=== PATIENT | female | born 1975 | race Caucasian/White ===

== ENCOUNTER 2021-06-12 15:22 | Emergency (ER) | payer SELFPAY ==
[2021-06-12] MEDS ORDERED: NS IV 1000 ML 1,000 ML IV SCH (15:30)
[2021-06-12 15:39] LABS: HEMATOCRIT 33 % (35-52); HEMOGLOBIN 11.2 g/dL (11.5-16.0); MEAN CORPUSCULAR HEMOGLOBIN 32 pg (25-34); MEAN CORPUSCULAR HGB CONC 34 g/dL (32-36); MEAN CORPUSCULAR VOLUME 95 fL (80-99); MEAN PLATELET VOLUME 10.3 fL (9.0-12.2); PLATELET COUNT 207 10^3/uL (130-400); WHITE BLOOD COUNT 7.3 10^3/uL (4.3-11.0)
[2021-06-12 15:40] LABS: BASOPHILS % (AUTO) 0 % (0-10); EOSINOPHILS # (AUTO) 0.2 10^3/uL (0.0-0.3); EOSINOPHILS % (AUTO) 2 % (0-10); LYMPHOCYTES # (AUTO) 1.8 X 10^3 (1.0-4.0); LYMPHOCYTES % (AUTO) 25 % (12-44); MONOCYTES # (AUTO) 0.6 X 10^3 (0.0-1.0); MONOCYTES % (AUTO) 8 % (0-12); NEUTROPHILS # (AUTO) 4.8 X 10^3 (1.8-7.8); NEUTROPHILS % (AUTO) 65 % (42-75)
[2021-06-12] MEDS ORDERED: MIDAZOLAM 5 MG/5 ML (VERSED) VIAL IVP STA (15:41)
[2021-06-12] MEDS ORDERED: PROPOFOL DRIP (ICU) 100 ML IV STA (15:41)
[2021-06-12] MEDS ORDERED: ROCURONIUM 10 MG/ML 5 ML SYRINGE IV STA (15:41)
[2021-06-12 15:44] LABS: PROTHROMBIN TIME PATIENT 13.9 SEC (12.2-14.7)
--- NOTE | 2021-06-12 15:46 | Diagnostic Imaging Report ---
INDICATION: Unresponsive. TIME OF EXAM: 03:33 p.m. COMPARISON: No prior studies are available for comparison. FINDINGS: Heart size is normal. ET tube has tip in good position above the ministerio. Lungs are clear. No infiltrates are seen. The pulmonary vascularity is normal. No effusion or pneumothorax is detected. IMPRESSION: Satisfactory endotracheal tube location. Dictated by: Dictated on workstation # [id number]
[2021-06-12 15:52] LABS: BILIRUBIN,URINE NEGATIVE (NEGATIVE); CLARITY,URINE CLEAR; COLOR,URINE YELLOW; GLUCOSE, URINE (UA) NEGATIVE (NEGATIVE); KETONES,URINE TRACE (NEGATIVE); LEUKOCYTE ESTERASE ,URINE NEGATIVE (NEGATIVE); NITRITE,URINE NEGATIVE (NEGATIVE); PH,URINE 6.5 (5-9); PROTEIN,URINE NEGATIVE (NEGATIVE)
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
[2021-06-12 16:04] LABS: BACTERIA,URINE NEGATIVE /HPF; RBC,URINE RARE /HPF; SQUAMOUS EPITHELIAL CELL,UR RARE /HPF; WBC,URINE RARE /HPF
[2021-06-12 16:09] LABS: ALANINE AMINOTRANSFERASE 34 U/L (0-55); ALKALINE PHOSPHATASE 71 U/L (40-136); BILIRUBIN,TOTAL 0.3 MG/DL (0.1-1.0); BUN/CREATININE RATIO 17; CALCIUM 8.1 MG/DL (8.5-10.1); CARBON DIOXIDE 22 MMOL/L (21-32); CHLORIDE 109 MMOL/L (98-107); CREATININE SERUM 0.66 MG/DL (0.60-1.30); GFR ESTIMATED 109; GLUCOSE 105 MG/DL (70-105); POTASSIUM 3.4 MMOL/L (3.6-5.0); SODIUM 143 MMOL/L (135-145)
[2021-06-12 16:11] LABS: ACETAMINOPHEN < 10 UG/ML (10-30); ALBUMIN 3.7 GM/DL (3.2-4.5); SALICYLATE < 0.3 MG/DL (5.0-20.0)
--- NOTE | 2021-06-12 16:17 | Diagnostic Imaging Report ---
CLINICAL INDICATION: Patient vomited, then went unresponsive. Patient has unequal pupils. EXAM: Axial CT scan of the brain performed without IV contrast with sagittal and coronal reformatted images. COMPARISON: None. FINDINGS: There is a moderate-sized area of hyperdense intraparenchymal hemorrhage which appears centered in the central portion of the mid brain, which slightly extends or encroaches upon the medial aspects of the thalami bilaterally. This area of intraparenchymal blood within the mid brain measures 3.9 cm x 2.8 cm x 2.6 cm (AP x Trans x CC). There is a moderate amount of intraventricular blood seen within the lateral ventricles, third ventricle, fourth ventricle, and trigone portions of the lateral ventricles. There is mild prominence of the lateral ventricles concerning for early minimal hydrocephaly. The remainder of the brain parenchyma is unremarkable. There is no brain herniation or midline shift. Basal cisterns are unremarkable. The extracranial soft tissue, skull, and orbits are unremarkable. There is mild mucosal thickening involving the ethmoid sinus. There is a moderate amount of mucosal thickening posteriorly involving the nasal cavity. Mastoid air cells are clear. IMPRESSION: 1: There is a moderate-sized area of acute intraparenchymal hemorrhage which appears centered in the mid brain, which abuts the medial aspect of the thalami bilaterally. Intraparenchymal blood is seen extending into the ventricles. There is no significant brain herniation or midline shift. Etiology of the bleed is unknown. 2: There is a moderate amount of intraventricular blood with early minimal hydrocephaly noted. Results of this report were discussed with Dr. You Naidu via telephone on 06/12/2021 at 1605 hours. Dictated by: Dictated on workstation # [id number]
[2021-06-12 16:55] VITALS: BP 137/67
[2021-06-12 17:02] LABS: AMPHETAMINE SCREEN, URINE NEGATIVE (NEGATIVE); BARBITURATE SCREEN URINE NEGATIVE (NEGATIVE); BENZODIAZEPINES SCREEN URINE NEGATIVE (NEGATIVE); CANNABINOID SCREEN, URINE POSITIVE (NEGATIVE); COCAINE SCREEN URINE NEGATIVE (NEGATIVE); METHADONE STAT NEGATIVE (NEGATIVE); METHAMPHETAMINE SCREEN URINE S NEGATIVE (NEGATIVE); OPIATE SCREEN URINE NEGATIVE (NEGATIVE); OXYCODONE STAT NEGATIVE (NEGATIVE); PROPOXYPHENE STAT NEGATIVE (NEGATIVE); TRICYCLIC ANTIDEPRESSANTS SCRE NEGATIVE (NEGATIVE)
== END 2021-06-12 16:55 | disposition short-term general hospital (02) ==
LOC: ER FS 15:23
DX: I61.5 Nontraumatic intracerebral hemorrhage, intraventricular (principal)
CPT/HCPCS: 36415; 51702; 70450; 71045; 80053; 80306; 81000; 83880; 84484; 84703; 85025; 85610; 85730; 93041; G0480 ×3; 80320; 80329; 93005; 99291

== ENCOUNTER 2022-05-19 01:37 | Inpatient (IN) | payer MEDICAID ==
[~2022-05-19] VITALS: Ht 175.3 cm; Wt 74.5 kg
[2022-05-19] VITALS (16 sets, daily range): BP systolic 107–144; BP diastolic 68–82
[2022-05-19 01:54] LABS: BILIRUBIN,URINE NEGATIVE (NEGATIVE); COLOR,URINE YELLOW; GLUCOSE, URINE (UA) NEGATIVE (NEGATIVE); KETONES,URINE NEGATIVE (NEGATIVE); LEUKOCYTE ESTERASE ,URINE 3+ (NEGATIVE); NITRITE,URINE POSITIVE (NEGATIVE); PH,URINE 8.5 (5-9); PROTEIN,URINE 1+ (NEGATIVE)
[2022-05-19 01:54] LABS: BASOPHILS # (AUTO) 0.1 10^3/uL (0.0-0.1); BASOPHILS % (AUTO) 0 % (0-10); EOSINOPHILS # (AUTO) 0.2 10^3/uL (0.0-0.3); EOSINOPHILS % (AUTO) 2 % (0-10); HEMATOCRIT 37 % (35-52); HEMOGLOBIN 12.9 g/dL (11.5-16.0); LYMPHOCYTES # (AUTO) 2.3 10^3/uL (1.0-4.0); LYMPHOCYTES % (AUTO) 19 % (12-44); MEAN CORPUSCULAR HEMOGLOBIN 32 pg (25-34); MEAN CORPUSCULAR HGB CONC 35 g/dL (32-36); MEAN CORPUSCULAR VOLUME 94 fL (80-99); MEAN PLATELET VOLUME 10.7 fL (9.0-12.2); MONOCYTES # (AUTO) 0.8 10^3/uL (0.0-1.0); MONOCYTES % (AUTO) 6 % (0-12); NEUTROPHILS # (AUTO) 8.5 10^3/uL (1.8-7.8); NEUTROPHILS % (AUTO) 72 % (42-75); PLATELET COUNT 296 10^3/uL (130-400); WHITE BLOOD COUNT 11.8 10^3/uL (4.3-11.0)
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
[2022-05-19 01:57] LABS: BACTERIA,URINE LARGE /HPF; CLARITY,URINE CLOUDY; TRIPLE PHOSPHATE CRYSTAL,UR MODERATE /LPF
[2022-05-19 02:12] LABS: POTASSIUM 3.9 MMOL/L (3.6-5.0)
[2022-05-19 02:13] LABS: ALBUMIN 3.6 GM/DL (3.2-4.5); BILIRUBIN,TOTAL 0.3 MG/DL (0.1-1.0); CALCIUM 8.8 MG/DL (8.5-10.1); CREATININE SERUM 0.4 MG/DL (0.60-1.30); TOTAL PROTEIN 7.1 GM/DL (6.4-8.2)
[2022-05-19] MEDS ORDERED: NS IV 1000 ML 1,000 ML IV STA (02:15)
[2022-05-19] MEDS ORDERED: ONDANSETRON 4 MG/2 ML (SDV) Z0FRAN IV PRN ×2 (04:00→14:00)
[2022-05-19] MEDS: NS IV 1000 ML 1,000 ML IV SCH ×2 (04:07→19:27)
[2022-05-19] MEDS ORDERED: RT-ALBUTEROL SULF 2.5 MG/3 ML PRE-MIX VIAL INH PRN (04:30)
--- NOTE | 2022-05-19 06:55 | Diagnostic Imaging Report ---
EXAMINATION: Chest, 1 view. HISTORY: NG tube placement. COMPARISON: 06/12/2021. FINDINGS: Heart size and pulmonary vasculature are normal. The lungs are clear without consolidation, pleural effusion, or pneumothorax. The osseous structures are intact. A tracheostomy is present within the trachea. An enteric catheter is present coursing below the diaphragm. The tip is nonvisualized inferior to the image, likely within the mid stomach in the mid abdomen. There appears to be a mild amount of free air under the diaphragm bilaterally. IMPRESSION: 1. Enteric catheter placement projecting over the stomach below the diaphragm. 2. Findings suggestive of free air under the diaphragm bilaterally. This finding was seen on the subsequent CT chest, abdomen, and pelvis performed on 05/19/2022. Dictated by: Dictated on workstation # [id number]
--- NOTE | 2022-05-19 07:11 | History & Physical-Hospitalist ---
History of Present Illness HPI/Chief Complaint CC: SBO with evidence of free air HPI: This is a 46yoWF NHP due to catastrophic disability following a hemorrhagic CVA in the past. She has contractures of all extremities. Apparently she was brought to [facility] ER with evidence of acute illness and found to have SBO but on repeat imaging she has free air so perforated viscus suspected so Dr Viera will perform exp lap. is at bedside. Updated him on all of the details. Source: family Exam Limitations: clinical condition Date Seen 05/19/22 Time Seen by a Provider: 11:00 Attending Physician Bentley Khan MD PCP Admitting Physician: More Harris DO Attending Physician: More Harris DO Referring Physician Date of Admission May 19, 2022 at 03:25 Home Medications & Allergies Home Medications Reviewed patient Home Medication Reconciliation performed by pharmacy medication reconciliations hvac technician residential and/or nursing. Patients Allergies have been reviewed. Allergies Allergies Coded Allergies No Known Drug Allergies (Unverified06/12/21) Past Vqympjx-Wmcelk-Kehyny Hx Patient Social History Marrital Status: Employed/Student: unemployed Tobacco Use?: No Smoking Status: Never a Smoker Smokeless Tobacco Frequency: Never a User Use of E-Cig and/or Vaping dev: No Substance use?: No Alcohol Use?: No Pt feels they are or have been: No Immunizations Up To Date First/Initial COVID19 Vaccinat: 2020 Second COVID19 Vaccination Paul: 2020 Current Status Advance Directives: No Communicates: Unable To Communicate Primary Language: Estonian Preferred Spoken Language: Estonian Is interpretation needed?: No Past Medical History Surgeries: Abdominal (PEG tube feeding) Stroke Review of Systems ROS-Unable to Obtain: non-verbal Constitutional: see HPI Physical Exam Physical Exam Vital Signs Vital Signs - First Documented 05/19/22 05/19/22 01:37 04:26 Temp 36.9 Pulse 113 Resp 22 B/P (MAP) 113/68 (83) Pulse Ox 95 O2 Delivery Room Air FiO2 21 Capillary Refill : Less Than 3 Seconds Height, Weight, BMI Height: '" Weight: lbs. oz. kg; 24.24 BMI Method: General Appearance: No Apparent Distress, Chronically ill Respiratory: Lungs Clear, Normal Breath Sounds Cardiovascular: Regular Rate, Rhythm Gastrointestinal: Abnormal Bowel Sounds Results Results/Procedures Labs Laboratory Tests 05/19/22 01:48 Patient resulted labs reviewed. Assessment/Plan Admission Diagnosis Assessment: SBO with free air Hemorrhagic CVA in past with catastrophic disability Extremity contractures Plan: Appreciate Dr Viera Pain control IV abx Admission Status: Inpatient Order (span 2 midnights) Reason for Inpatient Admission: sbo with free air MORE HARRIS DO May 19, 2022 07:11
--- NOTE | 2022-05-19 08:32 | Consultation - Surgery ---
AMY ST 05/19/22 0832: History of Present Illness History of Present Illness Patient Consulted On(sai/time) 05/19/22 08:24 Date Seen by Provider: May 19, 2022 Time Seen by Provider: 08:24 History of Present Illness Helga Reddy is a 46F who presented to the ED in [place] from [facility] where she was found to have a distended abdomen and signs of a SBO on xray. reports she had an ileus in [facility] [place] [facility]. reports the distention has never really resolved from her ileus a month ago but distention began worsening earlier this week around the time of moving to [facility] in [place]. 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 She requires tube feedings through PEG tube and has tracheostomy tube in place. NG tube in place drained 1L before leaving the ER. Imaging was concerning for perforation. We were consulted for evaluation and treatment of SBO w/ potential viscous perforation. Allergies and Home Medications Allergies Coded Allergies: No Known Drug Allergies (Unverified , 06/12/21) Patient Home Medication List Home Medication List Reviewed: Yes Past Ziqjeda-Ljkdpr-Sinvwl Hx Patient Social History Smoking Status: Never a Smoker Alcohol Use?: No Have you traveled recently?: No Surgeries History of Surgeries: Yes Surgeries: Abdominal (PEG tube feeding), Section, Tracheostomy Respiratory History of Respiratory Disorde: No Cardiovascular History of Cardiac Disorders: No Neurological History of Neurological Disord: Yes Neurological Disorders: Stroke Genitourinary History of Genitourinary Disor: Yes Genitourinary Disorders: Bladder Infection, UTI-Chronic Gastrointestinal History of Gastrointestinal Di: Yes Gastrointestinal Disorders: Obstructive Bowel, Irritable Bowel Musculoskeletal History of Musculoskeletal Dis: No Endocrine History of Endocrine Disorders: No HEENT History of HEENT Disorders: No Cancer History of Cancer: No Psychosocial History of Psychiatric Problem: No Integumentary History of Skin or Integumenta: No Family Medical History Significant Family History: Cancer (mother, hx obtained from who was unsure what type of cancer she had) Review of Systems-General ROS-Unable to Obtain: Unable to perform due to patient's status post brain injury Physical Exam-General Problems Physical Exam Vital Signs Vital Signs - First Documented 05/19/22 05/19/22 01:37 04:26 Temp 36.9 Pulse 113 Resp 22 B/P (MAP) 113/68 (83) Pulse Ox 95 O2 Delivery Room Air FiO2 21 Capillary Refill : Less Than 3 Seconds General Appearance: WD/WN, no apparent distress, other (tracheostomy, PEG, NG in place) HEENT: other (patient does not open eyes to exam) Neck: supple, normal inspection Respiratory: lungs clear, no respiratory distress, no accessory muscle use Cardiovascular: normal peripheral pulses, tachycardia Gastrointestinal: abnormal bowel sounds (decreased), distended Rectal: deferred Extremities: normal inspection, no pedal edema, normal capillary refill Neurologic/Psychiatric: No alert; other (pt is nonverbal due to augusta injury, contractures present in both upper extremities) Skin: normal color, warm/dry Lymphatic: no adenopathy Data Review Labs Laboratory Tests 05/19/22 01:44: Urine Color YELLOW, Urine Clarity CLOUDY, Urine pH 8.5, Urine Specific Mccoy 1.010L, Urine Protein 1+H, Urine Glucose (UA) NEGATIVE, Urine Ketones NEGATIVE, Urine Nitrite POSITIVEH, Urine Bilirubin NEGATIVE, Urine Urobilinogen 0.2, Urine Leukocyte Esterase 3+H, Urine RBC (Auto) 1+H, Urine RBC 2-5H, Urine WBC 10-25H, Urine Crystals PRESENTH, Urine Triple Phosphate Crystals MODERATEH, Urine Bacteria LARGEH, Urine Casts NONE, Urine Mucus NEGATIVE, Urine Culture Indicated YES 05/19/22 01:48: White Blood Count 11.8H, Red Blood Count 3.99, Hemoglobin 12.9, Hematocrit 37, Mean Corpuscular Volume 94, Mean Corpuscular Hemoglobin 32, Mean Corpuscular Hemoglobin Concent 35, Red Cell Distribution Width 13.4, Platelet Count 296, Mean Platelet Volume 10.7, Immature Granulocyte % (Auto) 0, Neutrophils (%) (Auto) 72, Lymphocytes (%) (Auto) 19, Monocytes (%) (Auto) 6, Eosinophils (%) (Auto) 2, Basophils (%) (Auto) 0, Neutrophils # (Auto) 8.5H, Lymphocytes # (Auto) 2.3, Monocytes # (Auto) 0.8, Eosinophils # (Auto) 0.2, Basophils # (Auto) 0.1, Immature Granulocyte # (Auto) 0.0, Sodium Level 134L, Potassium Level 3.9, Chloride Level 99, Carbon Dioxide Level 24, Anion Gap 11, Blood Urea Nitrogen 15, Creatinine 0.40L, Estimat Glomerular Filtration Rate 122, BUN/Creatinine Ratio 38, Glucose Level 159H, Calcium Level 8.8, Corrected Calcium 9.1, Total Bilirubin 0.3, Aspartate Amino Transf (AST/SGOT) 49H, Alanine Aminotransferase (ALT/SGPT) 70H, Alkaline Phosphatase 144H, Total Protein 7.1, Albumin 3.6, Lipase 21 Radiology [facility], [place] NAME: HELGA REDDY [facility] REC#: [id number] PT STATUS: ADM IN : 1975 PHYSICIAN: REFUGIO QUINTANA MD ADMIT DATE: 05/19/22 Draft Date of Exam:05/19/22 CHEST 1 VIEW AP/PA ONLY EXAMINATION: Chest, 1 view. HISTORY: NG tube placement. COMPARISON: 06/12/2021. FINDINGS: Heart size and pulmonary vasculature are normal. The lungs are clear without consolidation, pleural effusion, or pneumothorax. The osseous structures are intact. A tracheostomy is present within the trachea. An enteric catheter is present coursing below the diaphragm. The tip is nonvisualized inferior to the image, likely within the mid stomach in the mid abdomen. There appears to be a mild amount of free air under the diaphragm bilaterally. IMPRESSION: 1. Enteric catheter placement projecting over the stomach below the diaphragm. 2. Findings suggestive of free air under the diaphragm bilaterally. This finding was seen on the subsequent CT chest, abdomen, and pelvis performed on 05/19/2022. Dictated on workstation # [id number] Dict: 05/19/22 0633 Trans: 05/19/22 0654 [id number] Interpreted by: PAVAN FITZGERALD DO Electronically signed by: Assessment/Plan Assessment/Plan Assessment/Plan Abdominal pain and distention Possible viscous perforation Leukocytosis Tahycardia UTI- chronic Hx of stoke in May 2021 Plan: NG placed for decompression Bowel rest NPO, no tube feedings CT revealed free air under diaphragm and pneumatosis of ascending colon and cecum. No evidence of small bowel obstruction. Potential surgical intervention pending imaging review by Dr Gallo and discussion with family CED GALLO DO 05/19/22 1147: History of Present Illness History of Present Illness History of Present Illness Consult requested by Dr. Harris. Jaren is a 46 year old female with history of hemorrhagic stroke. She is nonverbal. Has been having bowel issues for about a month. Last couple of days been seeming to groan a little more and having more bowel distention. reports her having daily bowel movements, but not a whole lot. SHe has been getting feeds through peg tube, has a trach and suprapubic catheter. Also with vp emerging media shunt. Ct scan reviewed and has free air, pneumatosis coli of right colon. Allergies and Home Medications Allergies Coded Allergies: No Known Drug Allergies (Unverified , 06/12/21) Patient Home Medication List Home Medication List Reviewed: Yes Past Ooneqzu-Qgwknh-Exuyct Hx Surgeries History of Surgeries: Yes Surgeries: Abdominal (PEG tube feeding, vp emerging media shunt,suprapubic catheter), Section, Tracheostomy Neurological History of Neurological Disord: Yes Neurological Disorders: Stroke Genitourinary History of Genitourinary Disor: Yes Genitourinary Disorders: Bladder Infection, UTI-Chronic Gastrointestinal History of Gastrointestinal Di: Yes Gastrointestinal Disorders: Obstructive Bowel, Irritable Bowel Musculoskeletal History of Musculoskeletal Dis: No Endocrine History of Endocrine Disorders: No HEENT History of HEENT Disorders: No Cancer History of Cancer: No Psychosocial History of Psychiatric Problem: No Integumentary History of Skin or Integumenta: No Family Medical History Significant Family History: Cancer (mother, hx obtained from who was u nsure what type of cancer she had) Review of Systems-General ROS-Unable to Obtain: patient nonverbal Physical Exam-General Problems Physical Exam General Appearance: WD/WN, no apparent distress, other (tracheostomy, PEG, NG in place) HEENT: other (patient does not open eyes to exam, trach) Neck: supple, normal inspection Respiratory: chest non-tender, lungs clear, no respiratory distress Cardiovascular: normal peripheral pulses, no JVD, tachycardia Gastrointestinal: abnormal bowel sounds (decreased), distended Rectal: deferred Back: normal inspection, no CVA tenderness Extremities: no pedal edema, other (contracted) Neurologic/Psychiatric: No alert, No oriented x 3; other (pt is nonverbal due to aug[place] injury, contractures present in both upper extremities) Skin: normal color, warm/dry Lymphatic: no adenopathy Assessment/Plan Assessment/Plan Assessment/Plan Abdominal pain and distention Possible viscous perforation Leukocytosis Tahycardia UTI- chronic Hx of stoke in May 2021 Plan: NG already placed for decompression NPO, no tube feedings CT revealed free air under and pneumatosis coli of ascending colon and cecum. No evidence of small bowel obstruction. Discussed risks and benefits of having exploratory laparotomy all other indicated procedures. Family understands and wishes to proceed. To [facility] Supervisory-Addendum Brief Verification & Attestation Participated in pt care: history, MDM, physical Personally performed: exam, history, MDM, supervision of care Care discussed with: Medical Student Procedures: n/a Results interpretation: Verified all documentation Verification and Attestation of Medical Student E/M Service A medical student performed and documented this service in my presence. I reviewed and verified all information documented by the medical student and made modifications to such information, when appropriate. I personally performed the physical exam and medical decision making. Ced Gallo May 19, 2022,12:[address] May 19, 2022 08:32 CED GALLO DO May 19, 2022 11:47
--- NOTE | 2022-05-19 09:07 | Diagnostic Imaging Report ---
EXAMINATION: CT chest, abdomen and pelvis without intravenous contrast. TECHNIQUE: Multiple contiguous axial images were obtained through the chest, abdomen and pelvis without intravenous contrast. All CT scans use one or more of the following dose optimizing techniques: automated exposure control, MA and/or KvP adjustment based on patient size and exam type or iterative reconstruction. HISTORY: Abdominal distention, abnormal chest radiograph follow-up. COMPARISON: 05/19/2022 FINDINGS: Thyroid: The thyroid is normal. Mediastinum: Heart size is normal without significant pericardial effusion. The aorta is normal in caliber. No suspicious lymphadenopathy. Lungs and airways: There are trace bilateral pleural effusions with dependent atelectasis. No pneumothorax. Endotracheal tube is present above the ministerio. Solid organs: The liver is normal. The gallbladder is normal. There is no biliary ductal dilation. Pancreas is normal. Spleen is normal. Adrenal glands are normal. There are nonobstructing right renal calculi measuring up to 0.4 cm. No hydronephrosis. Bowel: A percutaneous gastrostomy tube is present. There is no bowel obstruction. There is a large volume of stool and air seen throughout the colon. There is pneumatosis seen along the ascending colon and cecum. No findings of acute appendicitis. Peritoneum: There is a moderate amount of free air seen throughout the nondependent abdomen. No loculated fluid collection. No suspicious lymphadenopathy. Vasculature: Normal without aneurysm. Musculoskeletal: No suspicious osseous lesion or compression fracture. Pelvis: The uterus and adnexa are normal. A Perez catheter is present within the urinary bladder. There is intraluminal air within the bladder. IMPRESSION: 1. Pneumatosis of the ascending colon and cecum. This finding is nonspecific but can be seen with ischemic colitis. This finding was not mentioned on the preliminary interpretation. 2. Free air seen within the abdomen is highly concerning for colon viscus perforation given the findings of the right hemicolon. 3. Trace bilateral pleural effusions and adjacent atelectasis. 4. Findings discrepant with the preliminary interpretation. 5. The report was called to ROBERT Beltran, by [email or web address]@9:06 AM. Dictated by: Dictated on workstation # [id number]
[2022-05-19] MEDS ORDERED: PIPERACILLIN SODIUM/TAZOBACTAM 4.5 GM in NS (IVPB) 100 ML IV ONE (12:00)
[2022-05-19] MEDS: LACTATED RINGERS 1,000 ML IV PRN ×3 (13:00→14:05)
[2022-05-19] MEDS ORDERED: LIDOCAINE PF 2% 5 ML (XYLOCAINE) VIAL ONE (13:05)
[2022-05-19] MEDS ORDERED: proPOfol 200 MG/20 ML (DIPRIVAN) VIAL IV ONE (13:05)
[2022-05-19] MEDS ORDERED: MIDAZOLAM 2 MG/2 ML (VERSED) VIAL ONE (13:05)
[2022-05-19] MEDS ORDERED: fentaNYL INJ 100 MCG/2 ML AMP ONE ×2 (13:05→13:45)
[2022-05-19] MEDS ORDERED: ROCURONIUM 50 MG/5 ML (ZEMURON) VIAL IV ONE ×2 (13:05→14:04)
[2022-05-19] MEDS ORDERED: ONDANSETRON 4 MG/2 ML (SDV) Z0FRAN ONE ×2 (13:21→13:45)
[2022-05-19] MEDS ORDERED: PHENYLEPHRINE 100 MCG/ML 10 ML (ANESTHESIA) SYR ONE (13:26)
[2022-05-19] MEDS ORDERED: NS (IVPB) 0 ML ONE (13:40)
[2022-05-19] MEDS ORDERED: HYDROmorphone 2 MG/ML VIAL (DILAUDID) ONE (13:45)
[2022-05-19] MEDS ORDERED: morphine INJ 10 MG/ML 1ML (SYR OR VIAL) ONE (13:45)
[2022-05-19] MEDS ORDERED: ONDANSETRON 4 MG (ZOFRAN) ORAL DISSOLVE TAB PO PRN (14:00)
[2022-05-19] MEDS ORDERED: CALCIUM CARBONATE 500 MG (TUMS) TAB.CHEW PO PRN (14:00)
[2022-05-19] MEDS ORDERED: MELATONIN 3 MG TABLET PO PRN (14:00)
[2022-05-19] MEDS ORDERED: BISACODYL 10 MG SUPP (DULCOLAX) PR PRN (14:00)
[2022-05-19] MEDS ORDERED: diphenhydrAMINE 50 MG/ML INJ (BENADRYL) IVP PRN (14:00)
[2022-05-19] MEDS ORDERED: LACTULOSE SYRUP 10GM/15ML (ENULOSE) 30ML UDC PO PRN (14:00)
[2022-05-19] MEDS ORDERED: polyethylene glycoL POWDER 17 GM (MIRALAX) PACK PO PRN (14:00)
[2022-05-19] MEDS ORDERED: ANTACID SUSP 30 ML UDC (MYLANTA) PO PRN (14:00)
[2022-05-19] MEDS ORDERED: diphenhydrAMINE 25 MG TAB (BENADRYL) PO PRN (14:00)
[2022-05-19] MEDS ORDERED: MILK OF MAGNESIA 400 MG/5 ML 30 ML UDC PO PRN (14:00)
[2022-05-19] MEDS ORDERED: ROPIVACAINE 5MG/ML 30ML VIAL ONE (14:29)
[2022-05-19] MEDS ORDERED: SUGAMMADEX 500 MG/5 ML VIAL (BRIDION) IV ONE (14:29)
[2022-05-19] MEDS ORDERED: SEVOFLURANE (ULTANE) 15 ML INHAL SOLN ONE (14:49)
--- NOTE | 2022-05-19 15:13 | Progress Note-Post Operative ---
Post-Operative Progess Note Surgeon (s)/Core Shaper Sides (s) Surgeon CED GALLO DO Core Shaper Sides: Dr. Quarles Pre-Operative Diagnosis pneumoperitoneum, pneumatosis coli Post-Operative Diagnosis same Procedure & Operative Findings Date of Procedure 05/19/22 Procedure Performed/Findings subtotal colectomy with end ileostomy, partial omentectomy Anesthesia Type general Estimated Blood Loss Estimated blood loss (mL): 200mL Specimens/Packing Specimens Removed colon, partial omentum CED GALLO DO May 19, 2022 15:12
[2022-05-19] MEDS ORDERED: morphine INJ 10 MG/ML 1ML (SYR OR VIAL) IVP ONE (15:30)
[2022-05-19] MEDS ORDERED: HYDROmorphone 2 MG/ML VIAL (DILAUDID) IV ONE (15:30)
[2022-05-19] MEDS ORDERED: PROMETHAZINE INJ 25 MG/ML (PHENERGAN) AMP IVP ONE (15:30)
[2022-05-19] MEDS ORDERED: ONDANSETRON 4 MG/2 ML (SDV) Z0FRAN IVP PRN (15:30)
[2022-05-19] MEDS: ENOXAPARIN 40 MG/0.4 ML (LOVENOX) SYR SC SCH (17:03)
[2022-05-19] MEDS: PIPERACILLIN SODIUM/TAZOBACTAM 4.5 GM in NS (IVPB) 100 ML IV SCH (20:02)
[2022-05-19] MEDS: SENNOSIDES 8.6 MG (SENOKOT) TAB PO SCH (21:01)
[2022-05-19] MEDS: DOCUSATE SODIUM 100 MG (COLACE) CAP PO SCH (21:01)
[2022-05-19] MEDS: HYDROmorphone 2 MG/ML VIAL (DILAUDID) IV PRN (22:12)
[2022-05-20 03:42] VITALS: BP 116/73
[2022-05-20] MEDS: PIPERACILLIN SODIUM/TAZOBACTAM 4.5 GM in NS (IVPB) 100 ML IV SCH ×3 (03:45→19:42)
[2022-05-20 04:38] LABS: BASOPHILS % (AUTO) 0 % (0-10); EOSINOPHILS % (AUTO) 0 % (0-10); HEMATOCRIT 33 % (35-52); HEMOGLOBIN 11.5 g/dL (11.5-16.0); LYMPHOCYTES # (AUTO) 1.5 10^3/uL (1.0-4.0); LYMPHOCYTES % (AUTO) 12 % (12-44); MEAN CORPUSCULAR HEMOGLOBIN 33 pg (25-34); MEAN CORPUSCULAR HGB CONC 35 g/dL (32-36); MEAN CORPUSCULAR VOLUME 94 fL (80-99); MEAN PLATELET VOLUME 10.9 fL (9.0-12.2); MONOCYTES % (AUTO) 8 % (0-12); NEUTROPHILS # (AUTO) 10.3 10^3/uL (1.8-7.8); NEUTROPHILS % (AUTO) 80 % (42-75); PLATELET COUNT 273 10^3/uL (130-400); WHITE BLOOD COUNT 12.8 10^3/uL (4.3-11.0)
[2022-05-20] MEDS: NS IV 1000 ML 1,000 ML IV SCH ×3 (04:59→14:55)
[2022-05-20 05:09] LABS: ALBUMIN 2.9 GM/DL (3.2-4.5); CALCIUM 8.5 MG/DL (8.5-10.1); CREATININE SERUM 0.54 MG/DL (0.60-1.30); POTASSIUM 3.8 MMOL/L (3.6-5.0); TOTAL PROTEIN 5.8 GM/DL (6.4-8.2)
[2022-05-20] MEDS: HYDROmorphone 2 MG/ML VIAL (DILAUDID) IV PRN ×5 (06:27→23:34)
--- NOTE | 2022-05-20 06:27 | Progress Note - Surgery ---
AMY ST 05/20/22 0627: Subjective Date Seen by a Provider: May 20, 2022 Time Seen by a Provider: 06:18 Subjective/Events-last exam Jazzmine Baron is seen at bedside this morning. POD1 from ex lap w subtotal colectomy and partial omentectomy. She is resting in bed. She slightly opens her eyes at my introduction. Her midline incision appeared clean, dry, and intact. Ileostomy is pink w/ clear edges without erythema. Serosanguinous discharge, minimal stool appreciated in bag. RN reports urinary leakage from urethra despite suprapubic catheter placement. Given hydromorphone .25 mg last night for pain due to moaning, seems to be resting comfortably this morning. Review of Systems Unable to obtain ROS due to patients baseline cognitive status after stroke in May 2021 Objective Exam Vital Signs Date Time Temp Pulse Resp B/P (MAP) Pulse Ox O2 Delivery O2 Flow Rate FiO2 05/20/22 03:42 36.8 107 18 116/73 (87) 93 Room Air 05/20/22 02:50 97 Room Air 05/19/22 23:59 36.5 101 18 120/73 (89) 93 Room Air 05/19/22 23:30 96 0.00 21 05/19/22 20:00 Room Air 05/19/22 19:12 36.7 99 18 144/82 (102) 94 Room Air 05/19/22 16:16 36.2 80 18 107/70 (82) 95 Room Air 05/19/22 16:10 36.2 20 118/68 (85) 96 Room Air 05/19/22 16:10 Room Air 05/19/22 16:00 20 124/74 (91) 96 Room Air 05/19/22 16:00 Room Air 05/19/22 15:50 20 124/74 (91) 96 Room Air 05/19/22 15:45 Room Air 05/19/22 15:40 20 126/73 (90) 100 Trach Collar 3.00 05/19/22 15:30 20 126/73 (90) 100 Trach Collar 5.00 05/19/22 15:30 Trach Collar 5.00 05/19/22 15:20 20 130/72 (91) 100 Trach Collar 5.00 05/19/22 15:15 Trach Collar 10.00 05/19/22 15:10 20 128/72 (90) 100 Trach Collar 10.00 05/19/22 15:07 36.2 20 120/71 (87) 100 Trach Collar 10.00 05/19/22 15:07 Trach Collar 10.00 05/19/22 14:15 36.7 109 95 21 05/19/22 11:20 36.7 109 18 119/68 (85) 95 Room Air 05/19/22 10:38 96 Room Air 05/19/22 08:06 36.8 109 18 139/74 (95) 96 Room Air 05/19/22 08:00 Room Air I & O 05/20/22 07:00 Intake Total 3200 ml Output Total 780 ml Balance 2420 ml Capillary Refill : Less Than 3 SecondsLess Than 3 Seconds General Appearance: No Apparent Distress, Chronically ill HEENT: Moist Mucous Membranes Neck: Normal Inspection, Supple Respiratory: Lungs Clear, Normal Breath Sounds, No Accessory Muscle Use Cardiovascular: Regular Rate, Rhythm, Normal Peripheral Pulses Gastrointestinal: abnormal bowel sounds (improved distention after surgery), distended, other (incision is clean, dry, and intact. Ileostomy pink and functioning) Extremity: Normal Capillary Refill, No Pedal Edema Neurologic/Psychiatric: Other (patient is nonverbal but will blink her eyes and can moan, contractures of both upper extremities) Skin: Normal Color, Warm/Dry Lymphatic: No Adenopathy Results Lab Laboratory Tests 05/20/22 04:09: White Blood Count 12.8H, Red Blood Count 3.53L, Hemoglobin 11.5, Hematocrit 33L, Mean Corpuscular Volume 94, Mean Corpuscular Hemoglobin 33, Mean Corpuscular Hemoglobin Concent 35, Red Cell Distribution Width 13.7, Platelet Count 273, Mean Platelet Volume 10.9, Immature Granulocyte % (Auto) 0, Neutrophils (%) (Auto) 80H, Lymphocytes (%) (Auto) 12, Monocytes (%) (Auto) 8, Eosinophils (%) (Auto) 0, Basophils (%) (Auto) 0, Neutrophils # (Auto) 10.3H, Lymphocytes # (Auto) 1.5, Monocytes # (Auto) 1.0, Eosinophils # (Auto) 0.0, Basophils # (Auto) 0.0, Immature Granulocyte # (Auto) 0.0, Sodium Level 139, Potassium Level 3.8, Chloride Level 106, Carbon Dioxide Level 21, Anion Gap 12, Blood Urea Nitrogen 8, Creatinine 0.54L, Estimat Glomerular Filtration Rate 113, BUN/Creatinine Ratio 15, Glucose Level 115H, Calcium Level 8.5, Corrected Calcium 9.4, Total Bilirubin 1.0, Aspartate Amino Transf (AST/SGOT) 26, Alanine Aminotransferase (ALT/SGPT) 52, Alkaline Phosphatase 93, Total Protein 5.8L, Albumin 2.9L Assessment/Plan Assessment/Plan Assessment/Plan POD 1 ex lap with subtotal colectomy and partial omentectomy & ileostomy Leukocytosis Tahycardia UTI- chronic Hx of stoke in May 2021 Plan: NG already placed for decompression NPO, no tube feedings CT revealed free air under and pneumatosis coli of ascending colon and cecum. No evidence of small bowel obstruction. Ileostomy pink and draining serosanguinous fluid, minimal stool Post op pain controlled w/ TAP block by anesthesia and .25mg hydromorphone q2hr prn Continue Zosyn Monitor for signs of infection CED VIERA DO 05/20/22 1315: Subjective Subjective/Events-last exam Laying in bed. Seems to be comfortable. at bedside. Fever present this morning. NPO. Objective Exam General Appearance: No Apparent Distress, Chronically ill HEENT: PERRL/EOMI, Normal ENT Inspection Neck: Normal Inspection, Supple Respiratory: Chest Non Tender, No Accessory Muscle Use, No Respiratory Distress Cardiovascular: Tachycardia Gastrointestinal: soft, distended (minimal), other (incision is clean, dry, and intact. Ileostomy pink no functioning) Neurologic/Psychiatric: Alert, Oriented x3, Other (patient is nonverbal but will blink her eyes and can moan, contractures of both upper extremities) Skin: Normal Color, Warm/Dry Lymphatic: No Adenopathy Assessment/Plan Assessment/Plan Assessment/Plan POD 1 ex lap with subtotal colectomy and partial omentectomy & ileostomy Leukocytosis Tahycardia UTI- chronic Hx of stoke in May 2021 NG already placed for decompression NPO, no tube feedings Ileostomy pink and viable await output Post op pain controlled w/ TAP block by anesthesia and .25mg hydromorphone q2hr prn Continue Zosyn added flagyl Supervisory-Addendum Brief Verification & Attestation Participated in pt care: history, MDM, physical Personally performed: exam, history, MDM, supervision of care Care discussed with: Medical Student Procedures: n/a Results interpretation: Verified all documentation Verification and Attestation of Medical Student E/M Service A medical student performed and documented this service in my presence. I reviewed and verified all information documented by the medical student and made modifications to such information, when appropriate. I personally performed the physical exam and medical decision making. Ced Viera May 20, 2022,13:[address] May 20, 2022 06:27 CED VIERA DO May 20, 2022 13:15
--- NOTE | 2022-05-20 07:20 | Anesthesia-General Post-Op ---
General Patient Condition Mental Status/LOC: Same as Preop Cardiovascular: Satisfactory Nausea/Vomiting: Absent Respiratory: Satisfactory Pain: Controlled Complications: Absent Post Op Complications Complications None Follow Up Care/Instructions Patient Instructions None needed. Anesthesia/Patient Condition Patient Condition Patient is doing well, no complaints, stable vital signs, no apparent adverse anesthesia problems. No complications reported per nursing. EVY HURTADO CRNA May 20, 2022 07:20
[2022-05-20 07:32] VITALS: BP 111/57
[2022-05-20] MEDS: SENNOSIDES 8.6 MG (SENOKOT) TAB PO SCH ×2 (07:34→19:44)
[2022-05-20] MEDS: DOCUSATE SODIUM 100 MG (COLACE) CAP PO SCH ×2 (07:34→19:43)
[2022-05-20] MEDS: ACETAMINOPHEN 325 MG TABLET PO PRN (09:58)
[2022-05-20 11:23] VITALS: BP 115/59
[2022-05-20] MEDS: metroNIDAZOLE 500MG/100ML IVPB 100 ML IV SCH ×2 (14:54→22:10)
[2022-05-20] MEDS: ENOXAPARIN 40 MG/0.4 ML (LOVENOX) SYR SC SCH (14:54)
--- NOTE | 2022-05-20 15:07 | Progress Note - Hospitalist ---
ALISA LEAL 05/20/22 1507: Subjective HPI/CC On Admission Date Seen by Provider: May 20, 2022 Time Seen by Provider: 15:02 Subjective/Events-last exam Patient is being seen in follow up for a subtotal colectomy with partial omentectomy and ileostomy placement S/P day 1. Patient resting comfortably. Not responsive to verbal cues or questioning this morning. Fever noted this morning. Review of Systems Unable to obtain ROS due to patient's current clinical status. Objective Exam Vital Signs Vital Signs Date Time Temp Pulse Resp B/P (MAP) Pulse Ox O2 Delivery O2 Flow Rate FiO2 05/20/22 11:23 37.0 101 17 115/59 (77) 92 Room Air 05/19/22 23:30 0.00 21 Capillary Refill : Less Than 3 SecondsLess Than 3 Seconds General Appearance: No Apparent Distress, Other (debilitated. chronic contractures of wrists. ) Respiratory: No Accessory Muscle Use, No Respiratory Distress, Inspiration (crackles on anterior posts) Cardiovascular: No Murmur, Normal Peripheral Pulses, Tachycardia (SR) Gastrointestinal: Non Tender, Soft, Other (Ostomy pink, patent, viable ) Extremity: No Inflammation; Other (SCDs in place) Neurologic/Psychiatric: Other (Non-responsive to verbal cue for me this morning. Unsure of patient's baseline, no family present when I visited. Chronic contracutres of wrists and RLE. ) Skin: Normal Color, Warm/Dry Results/Procedures Lab Laboratory Tests 05/20/22 04:09 Patient resulted labs reviewed. Assessment/Plan Assessment and Plan Assess & Plan/Chief Complaint S/P subtotal colectomy and partial omentectomy & ileostomy - POD 1 - Management per surgery team - Currently on Zosyn and Flaggyl New Onset Inspiratory Crackles - Patient S/P day one with chronic disability. Unsure of ability to protect airw ay. - Oxygen sats in the low 90s on room air. - Concern would be for new onset PNA/aspirations after surgery. - Will order CXR - Patient is currently on Zosyn and Flaggyl from colon perforation - Continue to monitor UTI - Noted to be chronic - Patient is on Zosyn and Flaggyl. - Continue to monitor. Tachycardia - Currently sinus rhythm. Has been tachycardic for majority of hospital stay. - Unsure of baseline HR or home medications at this time. - Will continue to monitor as patient has a chance to heal from major surgery. Hx of Nontraumatic Hemmorhagic Stroke - Nontraumatic Hemmorhagic stroke occurred in May of 2021. - Patient is currently cared for at a Care Home Facility. Will check for their records to gather more patient information. DVT Prophylaxis: Lovenox MORE GONZALEZ DO 05/21/22 0451: Supervisory-Addendum Brief Verification & Attestation Participated in pt care: history, MDM, physical Personally performed: exam, history, MDM, supervision of care Care discussed with: Medical Student Procedures: n/a Results interpretation: Verified all documentation Verification and Attestation of Medical Student E/M Service A medical student performed and documented this service in my presence. I reviewed and verified all information documented by the medical student and made modifications to such information, when appropriate. I personally performed the physical exam and medical decision making. More Gonzalez May 21, 2022,04:50 ALISA LEAL May 20, 2022 15:07 MORE GONZALEZ DO May 21, 2022 04:51
[2022-05-20 15:24] VITALS: BP 112/66
[2022-05-20] MEDS ORDERED: METO-333 PEG (15:34)
[2022-05-20] MEDS ORDERED: OXYB5TAB13 PEG (15:34)
[2022-05-20] MEDS ORDERED: LACT10SO3 PEG (15:34)
[2022-05-20] MEDS ORDERED: POTA20TA28 PEG (15:34)
[2022-05-20] MEDS ORDERED: IPRA3AMP31 PO (15:34)
[2022-05-20] MEDS ORDERED: BACL10TA PEG (15:34)
[2022-05-20] MEDS ORDERED: ACET650O4 PEG (15:34)
[2022-05-20] MEDS ORDERED: LACT1CAP62 PEG (15:34)
[2022-05-20] MEDS ORDERED: AZEL137S11 NSEACH (15:34)
[2022-05-20] MEDS ORDERED: KETO120S13 TP (15:34)
[2022-05-20] MEDS ORDERED: CRAN450T9 PEG (15:34)
[2022-05-20] MEDS ORDERED: NYST15CR35 TP (15:34)
[2022-05-20] MEDS ORDERED: POLY17PO6 PEG (15:34)
[2022-05-20] MEDS ORDERED: METO5TAB2 PEG (15:34)
[2022-05-20] MEDS ORDERED: DOCU50LI26 PEG (15:34)
[2022-05-20] MEDS ORDERED: LEVE100S16 PEG (15:34)
[2022-05-20] MEDS ORDERED: FAMO40TA6 PEG (15:34)
[2022-05-20] MEDS ORDERED: BISA10SU8 RC ×2 (15:34)
--- NOTE | 2022-05-20 16:29 | Diagnostic Imaging Report ---
INDICATION: Fever. Frontal chest obtained at 1035 a.m. and compared with yesterday. FINDINGS: Tracheostomy tube is unchanged. NG tube tip overlies the distal stomach. Heart is mildly enlarged. There is mild central vascular prominence, without vianey infiltrate or pneumothorax or pleural fluid. Shunt catheter over the right hemithorax is again noted. IMPRESSION: Cardiomegaly and mild central vascular prominence. No focal infiltrate or pneumothorax or pleural fluid. Dictated by: Dictated on workstation # [id number]
[2022-05-20 19:26] VITALS: BP 104/62
[2022-05-20 23:08] VITALS: BP 134/68
--- NOTE | 2022-05-20 23:32 | OPERATIVE REPORT ---
DATE OF SERVICE: 05/19/2022 PREOPERATIVE DIAGNOSIS: Pneumoperitoneum, pneumatosis coli. POSTOPERATIVE DIAGNOSIS: Pneumoperitoneum, pneumatosis coli. PROCEDURE: Exploratory laparotomy with subtotal colectomy with end ileostomy and partial omentectomy. SURGEON: Frank Viera DO. GRAPPLE CREW LEADER: Dr. Quarles, who assisted in retraction, dissection, and closure. TYPE OF ANESTHESIA: General. ESTIMATED BLOOD LOSS: 200 mL COMPLICATIONS: None. INDICATIONS: The patient is a 46-year-old female with history of hemorrhagic stroke. She has been having some abdominal pain. She was taken to the Emergency Department for further workup and evaluation. The patient was found to have pneumatosis coli and free air on CT scan. Patient's was discussed the risks and benefits of the procedure and they wished to proceed. Consent was signed in chart. DESCRIPTION OF PROCEDURE: The patient was taken to the operating suite, prepped and draped in sterile fashion. Timeout was performed. A midline incision was made below the gastrostomy tube and above the suprapubic tube. Cautery was used to dissect down through subcutaneous tissues and the fascia was then divided. A madrid of air came out of the abdomen. The small bowel had normal appearance. The cecum was then brought up noting air through the mesentery. This was then began to be mobilized. The colon was dilated as well and also the sigmoid colon was significantly dilated as well. It was also very redundant. The colon was then mobilized along the white line of Toldt and also mobilizing the hepatic flexure and freeing it from the omentum. Continue to make the colon midline structure. The colon soft had a viable appearance; however, I believe the perforation was more on the mesenteric side of the colon. Also, there is significant dilatation of the entire colon, more concerned about function, also with her more chronic appearing symptoms. At this time, we decided to proceed with a subtotal colectomy. The splenic flexure was then taken down with both blunt and cautery dissection, and also along the white line of Toldt along the left colon, mobilizing the sigmoid colon as well. A WOOD stapler was then fired across the small bowel, the distal ileum after it was dissected around and also a reload was then fired across the distal sigmoid where it was dissected around. LigaSure was used to divide the mesentery removing the colon. A portion of omentum that had ischemic appearance and a partial omentectomy was performed with LigaSure. At this time, the abdomen was irrigated with copious amounts of irrigation. Small bowel had normal appearance. The stomach was adherent to the anterior abdominal wall and had a normal appearance, no other pathology noted. Again, lots of irrigation and suction performed. Hemostasis was achieved. A circular skin incision was made with cautery for end-ileostomy formation. This was taken down to the fascia, where a cruciate incision was made. The muscle was divided and the posterior sheath was then divided for about 2 small fingers could be used to dilate this area. The distal ileum was brought out for ileostomy creation. The fascia was then closed using 1-0 looped PDS in a running fashion. The skin was then closed with delano after irrigating. The ileostomy was then created after the staple line was then cut and opened. The ileum was then brooked creating the ileostomy. This was done with 3-0 Vicryls. The ileostomy appliance was then cut to size and placed. The patient tolerated the procedure well and was taken to recovery room in stable condition. Job ID: [id number] DocumentID: [id number] Dictated Date: 05/20/2022 15:51:53 Peer Support Specialist Date: 05/20/2022 23:29:00 Dictated By: DO TATIANA MARAVILLA
[2022-05-21] MEDS: NS IV 1000 ML 1,000 ML IV SCH ×2 (01:01→13:09)
[2022-05-21] MEDS: PIPERACILLIN SODIUM/TAZOBACTAM 4.5 GM in NS (IVPB) 100 ML IV SCH ×3 (02:55→20:18)
[2022-05-21 03:57] VITALS: BP 128/60
[2022-05-21] MEDS: metroNIDAZOLE 500MG/100ML IVPB 100 ML IV SCH ×3 (05:20→21:58)
[2022-05-21] MEDS: HYDROmorphone 2 MG/ML VIAL (DILAUDID) IV PRN ×4 (05:47→15:54)
[2022-05-21 05:53] LABS: BASOPHILS % (AUTO) 0 % (0-10); EOSINOPHILS % (AUTO) 0 % (0-10); HEMATOCRIT 29 % (35-52); HEMOGLOBIN 9.7 g/dL (11.5-16.0); LYMPHOCYTES # (AUTO) 1.8 10^3/uL (1.0-4.0); LYMPHOCYTES % (AUTO) 14 % (12-44); MEAN CORPUSCULAR HEMOGLOBIN 32 pg (25-34); MEAN CORPUSCULAR HGB CONC 34 g/dL (32-36); MEAN CORPUSCULAR VOLUME 95 fL (80-99); MEAN PLATELET VOLUME 11.1 fL (9.0-12.2); MONOCYTES # (AUTO) 1.1 10^3/uL (0.0-1.0); MONOCYTES % (AUTO) 8 % (0-12); NEUTROPHILS # (AUTO) 9.6 10^3/uL (1.8-7.8); NEUTROPHILS % (AUTO) 77 % (42-75); PLATELET COUNT 227 10^3/uL (130-400); WHITE BLOOD COUNT 12.5 10^3/uL (4.3-11.0)
[2022-05-21 05:59] LABS: ALBUMIN 2.9 GM/DL (3.2-4.5); POTASSIUM 3.1 MMOL/L (3.6-5.0)
[2022-05-21 06:00] LABS: CALCIUM 8.2 MG/DL (8.5-10.1)
[2022-05-21 06:01] LABS: TOTAL PROTEIN 5.9 GM/DL (6.4-8.2)
[2022-05-21 06:03] LABS: BILIRUBIN,TOTAL 0.7 MG/DL (0.1-1.0)
[2022-05-21 06:05] LABS: CREATININE SERUM 0.5 MG/DL (0.60-1.30)
--- NOTE | 2022-05-21 06:31 | Progress Note - Surgery ---
AMY ST 05/21/22 0631: Subjective Date Seen by a Provider: May 21, 2022 Time Seen by a Provider: 06:24 Subjective/Events-last exam Jazzmine Baron was seen at bedside this morning resting comfortably. Her midline incision is clean, dry, and intact. Ileostomy is pink and functioning. Dark brown liquid stool is present in bag. RN reports another episode of urinary leakage despite suprapubic catheterization. No other acute events overnight. Pain controlled with hydromorphone and acetominophen. Review of Systems Unable to obtain ROS due to patients baseline cognitive status after stroke in May 2021 Objective Exam Vital Signs Date Time Temp Pulse Resp B/P (MAP) Pulse Ox O2 Delivery O2 Flow Rate FiO2 05/21/22 03:57 36.8 110 17 128/60 (82) 99 Room Air 0.00 0.00 05/20/22 23:08 36.7 110 17 134/68 (90) 99 Room Air 0.00 0.00 05/20/22 20:00 Room Air 05/20/22 19:26 37.3 96 17 104/62 (76) 91 Room Air 05/20/22 19:15 Room Air 05/20/22 15:24 37.7 108 16 112/66 (81) Room Air 05/20/22 11:23 37.0 101 17 115/59 (77) 92 Room Air 05/20/22 10:56 37.6 05/20/22 09:58 38.3 05/20/22 08:00 Room Air 05/20/22 07:32 38.2 124 18 111/57 (75) 91 Room Air I & O 05/21/22 07:00 Intake Total 300 ml Output Total 475 ml Balance -175 ml Capillary Refill : Less Than 3 SecondsLess Than 3 Seconds General Appearance: No Apparent Distress, Other (debilitated. chronic contractures of bilateral UE) HEENT: Other (trach in place, does not open eyes on exam) Neck: Normal Inspection, Supple Respiratory: No Accessory Muscle Use, No Respiratory Distress, Inspiration (crackles bilaterally) Cardiovascular: No Murmur, Normal Peripheral Pulses, Tachycardia Gastrointestinal: soft, other (incision is clean, dry, and intact. Ileostomy pink and functioning) Extremity: No Pedal Edema; No Inflammation; Other (SCDs in place) Neurologic/Psychiatric: Other (Non verbal, contractures) Skin: Normal Color, Warm/Dry Lymphatic: No Adenopathy Results Lab Laboratory Tests 05/21/22 05:06: White Blood Count 12.5H, Red Blood Count 3.03L, Hemoglobin 9.7L, Hematocrit 29L, Mean Corpuscular Volume 95, Mean Corpuscular Hemoglobin 32, Mean Corpuscular Hemoglobin Concent 34, Red Cell Distribution Width 13.5, Platelet Count 227, Mean Platelet Volume 11.1, Immature Granulocyte % (Auto) 1, Neutrophils (%) (Auto) 77H, Lymphocytes (%) (Auto) 14, Monocytes (%) (Auto) 8, Eosinophils (%) (Auto) 0, Basophils (%) (Auto) 0, Neutrophils # (Auto) 9.6H, Lymphocytes # (Auto) 1.8, Monocytes # (Auto) 1.1H, Eosinophils # (Auto) 0.0, Basophils # (Auto) 0.0, Immature Granulocyte # (Auto) 0.1, Sodium Level 138, Potassium Level 3.1L, Chloride Level 106, Carbon Dioxide Level 17L, Anion Gap 15H, Blood Urea Nitrogen 7, Creatinine 0.50L, Estimat Glomerular Filtration Rate 116, BUN/Creatinine Ratio 14, Glucose Level 79, Calcium Level 8.2L, Corrected Calcium 9.1, Total Bilirubin 0.7, Aspartate Amino Transf (AST/SGOT) 18, Alanine Aminotransferase (ALT/SGPT) 33, Alkaline Phosphatase 78, Total Protein 5.9L, Albumin 2.9L Microbiology 05/19/22 MRSA Screen - Final, Complete MRSA not isolated 05/19/22 Urine Culture - Preliminary, Resulted Proteus species Gram Negative Bacillus 2 Assessment/Plan Assessment/Plan Assessment/Plan POD 2 ex lap with 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 Leukocytosis Tachycardia UTI- chronic Hx of stoke in May 2021 NG placed prior to our consultation for decompression, remains in place this morning NPO, no tube feedings WBC decreased to 12.5 today from 12.8 Urine cx grew proteus species CXR 05/20 showed no pneumothorax or effusion Hypokalemia 3.1 today, K Cl started by medicine today Ileostomy pink and viable with dark liquid output Post op pain controlled w/ TAP block by anesthesia postoperatively and .25mg hydromorphone q2hr prn and acetominophen 500 TID Continue Zosyn and flagyl CED VIERA DO 05/21/22 1642: Subjective Subjective/Events-last exam Has ileostomy output. Seems to be having some pain. Breathing slightly labored. Rt working on removing secretions through trach. at bedside. Objective Exam General Appearance: No Apparent Distress, Other (debilitated. chronic contractures of bilateral UE) HEENT: Normal ENT Inspection, Other (trach in place, does not open eyes on exam) Neck: Normal Inspection, Non Tender Respiratory: Chest Non Tender, No Accessory Muscle Use, No Respiratory Distress, Other (coarse breath sounds.) Cardiovascular: No JVD, Tachycardia Gastrointestinal: soft, other (incision is clean, dry, and intact. Ileostomy pink and functioning) Extremity: Non Tender, No Calf Tenderness Neurologic/Psychiatric: Alert, Oriented x3 Skin: Normal Color, Warm/Dry Lymphatic: No Adenopathy Assessment/Plan Assessment/Plan Assessment/Plan POD 2 ex lap with 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 Leukocytosis Tachycardia UTI- chronic Hx of stoke in May 2021 removed ng trickle tube feeds WBC decreased to 12.5 today from 12.8 Urine cx grew proteus species CXR 05/20 showed no pneumothorax or effusion Hypokalemia 3.1 today, K Cl started by medicine today Ileostomy pink and viable with dark liquid output Post op pain controlled w/ TAP block by anesthesia postoperatively and .25mg hydromorphone q2hr prn and acetominophen 500 TID Continue Zosyn and flagyl RT working to remove secrections Supervisory-Addendum Brief Verification & Attestation Participated in pt care: history, MDM, physical Personally performed: exam, history, MDM, supervision of care Care discussed with: Medical Student Procedures: n/a Results interpretation: Verified all documentation Verification and Attestation of Medical Student E/M Service A medical student performed and documented this service in my presence. I reviewed and verified all information documented by the medical student and made modifications to such information, when appropriate. I personally performed the physical exam and medical decision making. Ced Viera May 21, 2022,16:[address] May 21, 2022 06:31 CED VIERA DO May 21, 2022 16:42
[2022-05-21] MEDS: POTASSIUM CL 10MEQ/50ML IVPB 50 ML IV SCH ×4 (06:54→10:13)
[2022-05-21] MEDS ORDERED: MAGNESIUM 1 GM/100 ML IVPB 100 ML IV NR (07:00)
[2022-05-21] MEDS: DOCUSATE SODIUM 100 MG (COLACE) CAP PO SCH (08:01)
[2022-05-21] MEDS: SENNOSIDES 8.6 MG (SENOKOT) TAB PO SCH ×3 (08:02→20:31)
[2022-05-21 08:42] VITALS: BP 136/74
[2022-05-21] MEDS: DOCUSATE SODIUM 10 MG/ML 10 ML UDC (COLACE) PO SCH ×3 (11:00→20:31)
[2022-05-21 11:41] VITALS: BP 122/72
--- NOTE | 2022-05-21 13:34 | Progress Note - Hospitalist ---
ALISA LEAL 05/21/22 1334: Subjective HPI/CC On Admission Date Seen by Provider: May 21, 2022 Time Seen by Provider: 13:29 Subjective/Events-last exam Patient is being seen in f/u s/p subtotal colectomy with partial omentectomy and ileostomy POD2 Patient responsive to verbal cues by fluttering eyelids today. Fever is better today. Unable to obtain ROS given patients current clinical status. Review of Systems Unable to obtain ROS due to patient's current clinical status. Objective Exam Vital Signs Vital Signs Date Time Temp Pulse Resp B/P (MAP) Pulse Ox O2 Delivery O2 Flow Rate FiO2 05/21/22 11:41 37.0 111 18 122/72 (89) 94 Room Air 05/21/22 03:57 0.00 0.00 05/19/22 23:30 21 Capillary Refill : Less Than 3 SecondsLess Than 3 Seconds General Appearance: No Apparent Distress, Chronically ill Neck: Supple, Other (Tracheostomy w/ trach collar in place, currently on RA) Respiratory: No Accessory Muscle Use, No Respiratory Distress, Inspiration (crackles on anterior posts ) Cardiovascular: No Gallop, No Murmur, Tachycardia (regular rhythm) Gastrointestinal: Soft, Other (Ostomy pink and patent) Extremity: Normal Capillary Refill, Pedal Edema (Trace bilaterally ), Other (chronic contracture of UE with some contracture of LE. ) Neurologic/Psychiatric: Depressed Affect, Other (patient responsive to verbal cues today with eye fluttering ) Skin: Normal Color, Warm/Dry Results/Procedures Lab Laboratory Tests 05/21/22 05:06 Patient resulted labs reviewed. Assessment/Plan Assessment and Plan Assess & Plan/Chief Complaint S/P subtotal colectomy and partial omentectomy & ileostomy - POD 2 - Management per surgery team - Currently on Zosyn and Flaggyl New Onset Inspiratory Crackles - CXR showed cardiomegaly with mild vascular prominence w/ no focal infiltrate - O2 Sats and oxygen requirements improved today. - Patient output is decreased at 0.24 ml/kg/hr yesterday. Will D/C IVF - This is probably postoperative edema, will monitor fluid status and output closely in the following days - If no improvement or worsening fluid status tomorrow will trial single dose of lasix and assess response UTI - Noted to be chronic - Patient is on Zosyn and Flaggyl. - Continue to monitor. Tachycardia - Currently sinus rhythm. Has been tachycardic for majority of hospital stay. - Unsure of baseline HR or home medications at this time. Have suspicion this is patients baseline HR. - Will continue to monitor as patient has a chance to heal from major surgery. Hx of Nontraumatic Hemmorhagic Stroke - Nontraumatic Hemmorhagic stroke occurred in May of 2021. - Patient is [facility]. Will check for their records to gather more patient information. DVT Prophylaxis: Lovenox Dispo: Back to [place] Facility once patient has recovered from surgery MORE GONZALEZ DO 05/22/22 0443: Supervisory-Addendum Brief Verification & Attestation Participated in pt care: history, MDM, physical Personally performed: exam, history, MDM, supervision of care Care discussed with: Medical Student Procedures: n/a Results interpretation: Verified all documentation Verification and Attestation of Medical Student E/M Service A medical student performed and documented this service in my presence. I re viewed and verified all information documented by the medical student and made modifications to such information, when appropriate. I personally performed the physical exam and medical decision making. More Gonzalez May 22, 2022,04:43 ALISA LEAL May 21, 2022 13:34 MORE GONZALEZ DO May 22, 2022 04:43
[2022-05-21] MEDS: ENOXAPARIN 40 MG/0.4 ML (LOVENOX) SYR SC SCH (14:54)
[2022-05-21 15:22] VITALS: BP 122/65
[2022-05-21] MEDS: ACETAMINOPHEN 325 MG TABLET PO PRN (15:37)
[2022-05-21 19:59] VITALS: BP 101/53
[2022-05-21 23:38] VITALS: BP 110/53
[2022-05-22] MEDS: NS IV 1000 ML 1,000 ML IV SCH ×2 (01:11→13:00)
[2022-05-22 03:37] VITALS: BP 122/65
[2022-05-22] MEDS: PIPERACILLIN SODIUM/TAZOBACTAM 4.5 GM in NS (IVPB) 100 ML IV SCH (03:58)
[2022-05-22] MEDS: metroNIDAZOLE 500MG/100ML IVPB 100 ML IV SCH ×3 (05:32→21:49)
[2022-05-22 05:38] LABS: BASOPHILS % (AUTO) 0 % (0-10); EOSINOPHILS # (AUTO) 0.1 10^3/uL (0.0-0.3); EOSINOPHILS % (AUTO) 1 % (0-10); HEMATOCRIT 26 % (35-52); HEMOGLOBIN 8.9 g/dL (11.5-16.0); LYMPHOCYTES # (AUTO) 1.5 10^3/uL (1.0-4.0); LYMPHOCYTES % (AUTO) 17 % (12-44); MEAN CORPUSCULAR HEMOGLOBIN 32 pg (25-34); MEAN CORPUSCULAR HGB CONC 34 g/dL (32-36); MEAN CORPUSCULAR VOLUME 95 fL (80-99); MEAN PLATELET VOLUME 10.2 fL (9.0-12.2); MONOCYTES # (AUTO) 0.8 10^3/uL (0.0-1.0); MONOCYTES % (AUTO) 9 % (0-12); NEUTROPHILS # (AUTO) 6.7 10^3/uL (1.8-7.8); NEUTROPHILS % (AUTO) 73 % (42-75); PLATELET COUNT 212 10^3/uL (130-400); WHITE BLOOD COUNT 9.1 10^3/uL (4.3-11.0)
[2022-05-22 06:06] LABS: ALBUMIN 2.8 GM/DL (3.2-4.5); BILIRUBIN,TOTAL 0.6 MG/DL (0.1-1.0); CALCIUM 8.2 MG/DL (8.5-10.1); CREATININE SERUM 0.48 MG/DL (0.60-1.30); POTASSIUM 2.9 MMOL/L (3.6-5.0); TOTAL PROTEIN 5.8 GM/DL (6.4-8.2)
[2022-05-22] MEDS: HYDROmorphone 2 MG/ML VIAL (DILAUDID) IV PRN ×4 (06:07→21:49)
--- NOTE | 2022-05-22 06:29 | Progress Note - Surgery ---
AMY ST 05/22/22 0629: Subjective Date Seen by a Provider: May 22, 2022 Time Seen by a Provider: 06:24 Subjective/Events-last exam Jazzmine Baron was seen at bedside this morning. She opens her eyes to my introduction. Midline incision remains clean, dry, and intact. Draining dark liquid stool via ileostomy. RN reports around 1450mL of fluid overnight, no bright red blood or purulence noted. Tracheostomy and PEG tube remain in place as well as suprapubic catheter. No fevers noted overnight. Pain controlled overnight as she rested, just received hydromorphone before my visit, no moaning or obvious pain noted. Continuous tube feeds at 10mls/hr. Review of Systems Unable to obtain ROS due to patients baseline cognitive status after stroke in May 2021 Objective Exam Vital Signs Date Time Temp Pulse Resp B/P (MAP) Pulse Ox O2 Delivery O2 Flow Rate FiO2 05/22/22 03:37 36.9 93 20 122/65 (84) 95 Room Air 05/21/22 23:38 36.3 85 20 110/53 (72) 96 Room Air 05/21/22 20:53 94 Room Air 05/21/22 20:20 Room Air 05/21/22 19:59 36.7 98 20 101/53 (69) 94 Room Air 05/21/22 18:36 94 Room Air 05/21/22 16:50 37.4 05/21/22 15:54 37.4 05/21/22 15:37 37.4 05/21/22 15:22 37.7 112 20 122/65 (84) Room Air 05/21/22 11:41 37.0 111 18 122/72 (89) 94 Room Air 05/21/22 08:42 36.8 114 18 136/74 (94) 96 Room Air 05/21/22 08:00 Room Air I & O 05/22/22 07:00 Intake Total 1320 ml Output Total 3350 ml Balance -2030 ml Capillary Refill : Less Than 3 SecondsLess Than 3 Seconds General Appearance: No Apparent Distress, Other (debilitated. chronic contractures of bilateral UE) HEENT: Moist Mucous Membranes, Other (trach in place, opens eyes on my entrance then goes back to sleep) Neck: Normal Inspection, Supple Respiratory: Chest Non Tender, No Accessory Muscle Use, No Respiratory Distress, Crackles (improved) Cardiovascular: No JVD, Normal Peripheral Pulses, Tachycardia Gastrointestinal: soft, other (incision is clean, dry, and intact. Ileostomy pink and functioning) Extremity: No Pedal Edema, Other (contractures of upper extremities) Neurologic/Psychiatric: Alert, Other (non verbal) Skin: Normal Color, Warm/Dry Lymphatic: No Adenopathy Results Lab Laboratory Tests 05/22/22 05:22: White Blood Count 9.1, Red Blood Count 2.77L, Hemoglobin 8.9L, Hematocrit 26L, Mean Corpuscular Volume 95, Mean Corpuscular Hemoglobin 32, Mean Corpuscular Hemoglobin Concent 34, Red Cell Distribution Width 13.2, Platelet Count 212, Mean Platelet Volume 10.2, Immature Granulocyte % (Auto) 0, Neutrophils (%) (Auto) 73, Lymphocytes (%) (Auto) 17, Monocytes (%) (Auto) 9, Eosinophils (%) (Auto) 1, Basophils (%) (Auto) 0, Neutrophils # (Auto) 6.7, Lymphocytes # (Auto) 1.5, Monocytes # (Auto) 0.8, Eosinophils # (Auto) 0.1, Basophils # (Auto) 0.0, Immature Granulocyte # (Auto) 0.0, Sodium Level 139, Potassium Level 2.9L, Chloride Level 109H, Carbon Dioxide Level 19L, Anion Gap 11, Blood Urea Nitrogen 8, Creatinine 0.48L, Estimat Glomerular Filtration Rate 117, BUN/Creatinine Ratio 17, Glucose Level 101, Calcium Level 8.2L, Corrected Calcium 9.2, Total Bilirubin 0.6, Aspartate Amino Transf (AST/SGOT) 15, Alanine Aminotransferase (ALT/SGPT) 27, Alkaline Phosphatase 71, Total Protein 5.8L, Albumin 2.8L Microbiology 05/19/22 MRSA Screen - Final, Complete MRSA not isolated 05/19/22 Urine Culture - Preliminary, Resulted Proteus mirabilis Klebsiella pneumoniae Assessment/Plan Assessment/Plan Assessment/Plan POD 3 ex lap with 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 Leukocytosis Tachycardia UTI- chronic Hypokalemia anemia Hx of stoke in May 2021 removed ng trickle tube feeds WBC decreased to 9.1 today from 12.5 Urine cx grew proteus mirabilis and klebsiella CXR 05/20 showed no pneumothorax or effusion Hypokalemia 2.9 today, on K Cl by medicine team, continue to monitor Ileostomy pink and viable with dark liquid output Post op pain controlled w/ TAP block by anesthesia postoperatively and .25mg hydromorphone q2hr prn and acetominophen 500 TID Continue Zosyn and flagyl RT working to remove secrections, improved lung sounds today Hgb has dropped slowly over admission. 8.9 today from 9.7. Continue to monitor. Transfuse if less than 7 CED VIERA DO 05/22/22 1309: Subjective Subjective/Events-last exam Laying in bed. No family at bedside. Opens her eyes. Ileostomy functionion. Tolerating tube feeds. Pain controlled. Has been afebrile. Hgb minimal drop. Potassium down. Objective Exam General Appearance: No Apparent Distress, Other (debilitated. chronic contractures of bilateral UE) HEENT: PERRL/EOMI, Moist Mucous Membranes Neck: Normal Inspection, Supple Respiratory: Chest Non Tender, No Accessory Muscle Use, No Respiratory Distress Cardiovascular: Regular Rate, Rhythm, No JVD Gastrointestinal: soft, other (incision is clean, dry, and intact. Ileostomy pink and functioning) Extremity: Other (contractures of upper extremities) Neurologic/Psychiatric: Alert, Other (non verbal) Skin: Normal Color, Warm/Dry Lymphatic: No Adenopathy Assessment/Plan Assessment/Plan Assessment/Plan POD 3 ex lap with 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 Leukocytosis Tachycardia UTI- chronic Hypokalemia anemia Hx of stoke in May 2021 trickle tube feeds try and advance to goal WBC decreased to 9.1 today from 12.5 Urine cx grew proteus mirabilis and klebsiella CXR 05/20 showed no pneumothorax or effusion Hypokalemia 2.9 today, on K Cl by medicine team, continue to monitor Ileostomy pink and viable with dark liquid output Post op pain controlled w/ TAP block by anesthesia postoperatively and .25mg hydromorphone q2hr prn and acetominophen 500 TID Continue Ceftriaxone and flagyl RT working to remove secrections, improved lung sounds today Hgb has dropped slowly over admission. 8.9 today from 9.7. Continue to monitor. Transfuse if less than 7 Supervisory-Addendum Brief Verification & Attestation Participated in pt care: history, MDM, physical Personally performed: exam, history, MDM, supervision of care Care discussed with: Medical Student Procedures: n/a Results interpretation: Verified all documentation Verification and Attestation of Medical Student E/M Service A medical student performed and documented this service in my presence. I reviewed and verified all information documented by the medical student and made modifications to such information, when appropriate. I personally performed the physical exam and medical decision making. Ced Viera, May 22, 2022,13:[address] May 22, 2022 06:29 CED VIERA DO May 22, 2022 13:09
[2022-05-22] MEDS ORDERED: MAGNESIUM 1 GM/100 ML IVPB 100 ML IV ONE (06:45)
[2022-05-22] MEDS: DOCUSATE SODIUM 10 MG/ML 10 ML UDC (COLACE) PO SCH (08:04)
[2022-05-22] MEDS: POTASSIUM CL 10MEQ/50ML IVPB 50 ML IV SCH ×7 (08:04→13:39)
[2022-05-22 08:05] VITALS: BP 133/82
[2022-05-22] MEDS: SENNOSIDES 8.6 MG (SENOKOT) TAB PO SCH ×2 (08:05→20:39)
[2022-05-22] MEDS: FAMOTIDINE 20MG/2ML IV (PEPCID) IVP SCH (08:11)
[2022-05-22] MEDS ORDERED: DOCUSATE SODIUM 10 MG/ML 10 ML UDC (COLACE) PO PRN (10:45)
[2022-05-22 11:34] VITALS: BP 158/93
[2022-05-22] MEDS: cefTRIAXone 1 GM PRE-MIX 50 ML IV SCH (13:00)
[2022-05-22] MEDS: ENOXAPARIN 40 MG/0.4 ML (LOVENOX) SYR SC SCH (13:00)
--- NOTE | 2022-05-22 14:20 | Progress Note - Hospitalist ---
ALISA LEAL 05/22/22 1419: Subjective HPI/CC On Admission Date Seen by Provider: May 22, 2022 Time Seen by Provider: 14:15 Subjective/Events-last exam Patient is being seen in follow up for total colectomy with partial omentectomy and ileostomy. Patient resting comofortably in bed. Ostomy out marked output improvement. Unable to obtain ROS due to patients clinical status. Review of Systems Unable to obtain ROS due to patient's current clinical status. Objective Exam Vital Signs Vital Signs Date Time Temp Pulse Resp B/P (MAP) Pulse Ox O2 Delivery O2 Flow Rate FiO2 05/22/22 11:34 37.2 101 18 158/93 (114) 96 Room Air 05/21/22 03:57 0.00 0.00 05/19/22 23:30 21 Capillary Refill : Less Than 3 SecondsLess Than 3 Seconds General Appearance: No Apparent Distress, Chronically ill Neck: Non Tender, Supple Respiratory: Lungs Clear (marked improvement from yesterday ), Normal Breath Sounds, No Accessory Muscle Use, No Respiratory Distress Cardiovascular: No Gallop, No Murmur, Tachycardia (SR) Gastrointestinal: Soft, Other (ileostomy patent and viable) Rectal: Deferred Extremity: No Inflammation; Pedal Edema (trace bilaterally ), Other (chronic contracture of UE) Neurologic/Psychiatric: Disoriented, Other (chronic catastrophic dehilitation from hemmorhagic CVA) Skin: Normal Color, Warm/Dry Results/Procedures Lab Laboratory Tests 05/22/22 05:22 Patient resulted labs reviewed. Assessment/Plan Assessment and Plan Assess & Plan/Chief Complaint S/P subtotal colectomy and partial omentectomy & ileostomy - POD 2 - Management per surgery team - Currently on flaggyl - switching from zosyn to ceftriaxone today. - Patient is chronically fed through percutaneous gastrostomy tube. Feedings managed by Surg team. New Onset Inspiratory Crackles - CXR 05/20 showed cardiomegaly with mild vascular prominence w/ no focal infiltrate - Patient does have Trach which is probable cause of undulating anterior rhonchi sounds - is getting suctioned by RT - O2 Sats and oxygen requirements stable today - Patient output is improved today. Will continue to monitor fluid status. UTI - Noted to be chronic. Patient has indwelling cath - Grew out klebsiella and proteus, sensitive to ceftriaxone. Will start. - Continue to monitor. Tachycardia - Currently sinus rhythm. Has been tachycardic for majority of hospital stay. - Unsure of baseline HR or home medications at this time. Have suspicion this is patients baseline HR. - Will continue to monitor as patient has a chance to heal from major surgery. Hx of Nontraumatic Hemmorhagic Stroke - Nontraumatic Hemmorhagic stroke occurred in May of 2021 leading to patient's current clinical condition. DVT Prophylaxis: Lovenox Dispo: Back to [place] Facility once patient has recovered from surgery - or Friday this week probable unless something changes. MORE GONZALEZ DO 05/22/222051: Supervisory-Addendum Brief Verification & Attestation Participated in pt care: history, MDM, physical Personally performed: exam, history, MDM, supervision of care Care discussed with: Medical Student Procedures: n/a Results interpretation: Verified all documentation Verification and Attestation of Medical Student E/M Service A medical student performed and documented this service in my presence. I reviewed and verified all information documented by the medical student and made modifications to such information, when appropriate. I personally performed the physical exam and medical decision making. More Gnozalez May 22, 2022,20:52 ALISA LEAL May 22, 2022 14:19 MORE GONZALEZ DO May 22, 2022 20:52
[2022-05-22 15:35] VITALS: BP 135/95
[2022-05-22 19:40] VITALS: BP 127/61
[2022-05-22 23:42] VITALS: BP 139/78
[2022-05-23] MEDS: NS IV 1000 ML 1,000 ML IV SCH ×2 (00:03→10:07)
[2022-05-23] MEDS: HYDROmorphone 2 MG/ML VIAL (DILAUDID) IV PRN ×3 (02:32→16:49)
[2022-05-23 03:24] VITALS: BP 137/71
[2022-05-23] MEDS: ACETAMINOPHEN 325 MG TABLET PO PRN (03:26)
[2022-05-23 04:09] VITALS: BP 121/63
[2022-05-23 05:45] LABS: BASOPHILS # (AUTO) 0.1 10^3/uL (0.0-0.1); BASOPHILS % (AUTO) 1 % (0-10); EOSINOPHILS # (AUTO) 0.3 10^3/uL (0.0-0.3); EOSINOPHILS % (AUTO) 3 % (0-10); HEMATOCRIT 28 % (35-52); HEMOGLOBIN 9.8 g/dL (11.5-16.0); LYMPHOCYTES % (AUTO) 24 % (12-44); MEAN CORPUSCULAR HEMOGLOBIN 33 pg (25-34); MEAN CORPUSCULAR HGB CONC 35 g/dL (32-36); MEAN CORPUSCULAR VOLUME 94 fL (80-99); MEAN PLATELET VOLUME 10.3 fL (9.0-12.2); MONOCYTES # (AUTO) 0.8 10^3/uL (0.0-1.0); MONOCYTES % (AUTO) 9 % (0-12); NEUTROPHILS # (AUTO) 5.2 10^3/uL (1.8-7.8); NEUTROPHILS % (AUTO) 63 % (42-75); PLATELET COUNT 277 10^3/uL (130-400); WHITE BLOOD COUNT 8.3 10^3/uL (4.3-11.0)
[2022-05-23 05:58] LABS: ALBUMIN 2.9 GM/DL (3.2-4.5); POTASSIUM 3.2 MMOL/L (3.6-5.0)
[2022-05-23 06:01] LABS: TOTAL PROTEIN 5.9 GM/DL (6.4-8.2)
[2022-05-23 06:03] LABS: BILIRUBIN,TOTAL 0.3 MG/DL (0.1-1.0)
[2022-05-23] MEDS: metroNIDAZOLE 500MG/100ML IVPB 100 ML IV SCH ×2 (06:03→13:52)
[2022-05-23 06:04] LABS: CREATININE SERUM 0.47 MG/DL (0.60-1.30)
--- NOTE | 2022-05-23 06:33 | Progress Note - Surgery ---
AMY ST 05/23/22 0633: Subjective Date Seen by a Provider: May 23, 2022 Time Seen by a Provider: 06:28 Subjective/Events-last exam Jazzmine Baron is seen at bedside. She appears to be resting comfortably. Ostomy is draining brown liquid stool, today there are light colored solid pieces of stool present in bag as well. 250 ml output overnight measured, another 150-200 is present in bag on my exam. Midline incision is clean, dry, and intact. Suprapubic catheter and tracheostomy remain in place. Fever (39.0) around 0300 05/23. Tylenol administered w/ reduction of temp back to normal this morning. Pt is mildly diaphoretic on exam. Tube feeds today, RD recommends 1 can of jevity 5 x per day with 30ml water flushed before and after feeds. Review of Systems Unable to obtain ROS due to patients baseline cognitive status after stroke in May 2021 Objective Exam Vital Signs Date Time Temp Pulse Resp B/P (MAP) Pulse Ox O2 Delivery O2 Flow Rate FiO2 05/23/22 04:09 37.2 05/23/22 04:09 37.2 98 20 121/63 (82) 96 Room Air 05/23/22 03:26 39.0 05/23/22 03:24 39.0 99 20 137/71 (93) 95 Room Air 05/23/22 02:35 Room Air 05/22/22 23:42 36.6 94 20 139/78 (98) 95 Room Air 05/22/22 20:40 Room Air 05/22/22 19:40 37.5 106 20 127/61 (83) 97 Room Air 05/22/22 15:35 36.9 106 20 135/95 (108) 95 Room Air 05/22/22 11:34 37.2 101 18 158/93 (114) 96 Room Air 05/22/22 08:05 37.1 101 18 133/82 (99) 96 Room Air 05/22/22 08:00 Room Air I & O 05/23/22 07:00 Intake Total 1370 ml Output Total 2375 ml Balance -1005 ml Capillary Refill : Less Than 3 SecondsLess Than 3 Seconds General Appearance: No Apparent Distress, Chronically ill HEENT: Moist Mucous Membranes; No Scleral Icterus (L), No Scleral Icterus (R) Neck: Normal Inspection, Supple Respiratory: Lungs Clear (improved), No Accessory Muscle Use, No Respiratory Distress Cardiovascular: Regular Rate, Rhythm, No JVD, Normal Peripheral Pulses Gastrointestinal: soft, other (incision is clean, dry, and intact. Ileostomy pink and functioning) Extremity: No Pedal Edema; No Inflammation; Other (chronic contracture of UE) Neurologic/Psychiatric: Disoriented; No Facial Droop; Other (debilitated and nonverbal following stroke in 2021) Skin: Normal Color, Warm/Dry Lymphatic: No Adenopathy Results Lab Laboratory Tests 05/23/22 05:07: White Blood Count 8.3, Red Blood Count 2.96L, Hemoglobin 9.8L, Hematocrit 28L, Mean Corpuscular Volume 94, Mean Corpuscular Hemoglobin 33, Mean Corpuscular Hemoglobin Concent 35, Red Cell Distribution Width 13.0, Platelet Count 277, Mean Platelet Volume 10.3, Immature Granulocyte % (Auto) 0, Neutrophils (%) (Auto) 63, Lymphocytes (%) (Auto) 24, Monocytes (%) (Auto) 9, Eosinophils (%) (Auto) 3, Basophils (%) (Auto) 1, Neutrophils # (Auto) 5.2, Lymphocytes # (Auto) 2.0, Monocytes # (Auto) 0.8, Eosinophils # (Auto) 0.3, Basophils # (Auto) 0.1, Immature Granulocyte # (Auto) 0.0, Sodium Level 138, Potassium Level 3.2L, Chloride Level 109H, Carbon Dioxide Level 21, Anion Gap 8, Blood Urea Nitrogen 5L, Creatinine 0.47L, Estimat Glomerular Filtration Rate 117, BUN/Creatinine Ratio 11, Glucose Level 139H, Calcium Level 8.0L, Corrected Calcium 8.9, Total Bilirubin 0.3, Aspartate Amino Transf (AST/SGOT) 16, Alanine Aminotransferase (ALT/SGPT) 24, Alkaline Phosphatase 63, Total Protein 5.9L, Albumin 2.9L Microbiology 05/19/22 MRSA Screen - Final, Complete MRSA not isolated 05/19/22 Urine Culture - Preliminary, Resulted Proteus mirabilis Klebsiella pneumoniae Staphylococcus aureus Testing In Progress Assessment/Plan Assessment/Plan Assessment/Plan POD 4 ex lap with 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 Leukocytosis Tachycardia UTI- chronic Hypokalemia anemia Hx of stoke in May [address] recommends 5 cans of Jevity 1.5 per day with 30ml water flushes before and after feeds WBC decreased to 8.3 today from 9.1 Urine cx grew proteus mirabilis, klebsiella, and staph aureus CXR 3/6 showed no pneumothorax or effusion Hypokalemia 2.9 yesterday up to 3.2 today, on K Cl by medicine team, continue to monitor Ileostomy pink and viable with brown liquid output w light colored solid pieces intermixed Post op pain controlled w/ TAP block by anesthesia postoperatively and .25mg hydromorphone q2hr prn and acetominophen 500 TID Continue Ceftriaxone and flagyl RT working to remove secretions, improved lung sounds today Hgb has dropped slowly over admission 8.9 yesterday up to 9.8 today. MCV wnl. Continue to monitor. Transfuse if less than 7 CED VIERA DO 05/23/22 1608: Subjective Subjective/Events-last exam Patient comfortable laying in bed. Tolerating tube feeds. Ileostomy function ing. Pain seems controlled. Family at bedside. No questions. Objective Exam General Appearance: No Apparent Distress, Chronically ill HEENT: PERRL/EOMI, Normal ENT Inspection Neck: Normal Inspection, Supple Respiratory: Chest Non Tender, No Accessory Muscle Use, No Respiratory Distress Cardiovascular: Regular Rate, Rhythm, No JVD Gastrointestinal: soft, other (incision is clean, dry, and intact. Ileostomy pink and functioning) Extremity: Other (chronic contracture of UE) Neurologic/Psychiatric: Alert, Other ( nonverbal ) Skin: Normal Color, Warm/Dry Lymphatic: No Adenopathy Assessment/Plan Assessment/Plan Assessment/Plan POD 4 ex lap with 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 Leukocytosis Tachycardia UTI- chronic Hypokalemia anemia Hx of stoke in May [address] recommends 5 cans of Jevity 1.5 per day with 30ml water flushes before and after feeds WBC decreased to 8.3 today from 9.1 Urine cx grew proteus mirabilis, klebsiella, and staph aureus CXR 3/6 showed no pneumothorax or effusion Hypokalemia 2.9 yesterday up to 3.2 today, on K Cl by medicine team, Ileostomy pink and viable with output Post op pain controlled w/ TAP block by anesthesia postoperatively and .25mg hydromorphone q2hr prn and acetominophen 500 TID Convert Ceftriaxone and flagyl- to oral RT working to remove secretions, improved lung sounds today Hgb has dropped slowly over admission 8.9 yesterday up to 9.8 today. Okay to dc from surgical standpoint with outpatient followup Supervisory-Addendum Brief Verification & Attestation Participated in pt care: history, MDM, physical Personally performed: exam, history, MDM, supervision of care Care discussed with: Medical Student Procedures: n/a Results interpretation: Verified all documentation Verification and Attestation of Medical Student E/M Service A medical student performed and documented this service in my presence. I reviewed and verified all information documented by the medical student and made modifications to such information, when appropriate. I personally performed the physical exam and medical decision making. Ced Viera, May 23, 2022,16:[address] May 23, 2022 06:33 CED VIERA DO May 23, 2022 16:08
[2022-05-23 07:55] VITALS: BP 125/77
--- NOTE | 2022-05-23 08:48 | Diagnostic Imaging Report ---
INDICATION: Fever Frontal chest obtained at 8:12 a.m. and compared to 05/20/2022. There is mild cardiomegaly. Tracheostomy tube is unchanged. NG tube has been removed. There is no pneumothorax or pleural fluid. Shunt catheter over the right hemithorax is noted. IMPRESSION: Mild cardiomegaly with no acute process in the chest. Dictated by: Dictated on workstation # [id number]
[2022-05-23] MEDS: FAMOTIDINE 20MG/2ML IV (PEPCID) IVP SCH (10:08)
[2022-05-23] MEDS: SENNOSIDES 8.6 MG (SENOKOT) TAB PO SCH (10:08)
[2022-05-23 11:32] VITALS: BP 112/65
[2022-05-23] MEDS: cefTRIAXone 1 GM PRE-MIX 50 ML IV SCH (12:14)
[2022-05-23] MEDS ORDERED: ENOX40DI8 SC (12:55)
[2022-05-23] MEDS ORDERED: AMOX250S73 PO (12:55)
--- NOTE | 2022-05-23 12:57 | Discharge Inst-Skilled Nursing ---
Discharge Inst-Skilled NF Reconcile Patient Problems Problems Reviewed?: Yes Patient Instructions Patient Problems: Bowel perforation Consult/Follow Up/Orders Follow Up Appt.: PCP [place] rounds Skilled NF Admit to: Certification (SNF) I certify that SNF services are required to be given on an inpatient basis because of the above named patient's need for nursing home care on a continuing basis for the conditions(s) for which he/she was receiving inpatient hospital services prior to his/her transfer to the SNF. Halfway Facility Order: Nursing Services, Hydrate Thickener Operator-Evaluate & Treat, Physical Therapy-Evaluate & Treat Oxygen Delivery Method: Room Air Discharge Diet: Tube Feeding Resuscitation Status: Full Code New & Resume Previous Orders New Medications: Amoxicillin/Potassium Clav (Amox Tr-K Clv 250-62.5/5 Susp) 250 Mg-62.5 Mg/5 Ml Susp.recon 10 ML PO BID, #100 ML Enoxaparin Sodium (Enoxaparin Sodium) 40 Mg/0.4 Ml Syringe 40 MG SC Q24H, #14 SYRINGE Continued Medications: Acetaminophen (Acetaminophen) 650 Mg/20.3 Ml Oral.susp 20.3 ML PEG Q6H PRN for PAIN-MILD (1-4) OR TEMPATURE, ML Azelastine HCl (Azelastine HCl) 137 Mcg (0.1 %) Belt.pump 2 SPRAYS NSEACH HS, ML Baclofen (Baclofen) 10 Mg Tablet 10 MG PEG BID, TAB Bisacodyl (Bisacodyl) 10 Mg Supp.rect 10 MG RC DAILY PRN for CONSTIPATION-4TH LINE, SUPP.RECT Bisacodyl (Bisacodyl) 10 Mg Supp.rect 10 MG RC Q48H, SUPP.RECT Cranberry Fruit (Cranberry) 450 Mg Tablet 450 MG PEG BID, TAB Docusate Sodium (Docu Liquid) 50 Mg/5 Ml Liquid 10 ML PEG BID, EA Famotidine (Famotidine) 40 Mg Tablet 40 MG PEG HS, TAB Ipratropium/Albuterol Sulfate (Iprat-Albut 0.5-3(2.5) mg/3 ml) 0.5 Mg-3 Mg (2.5 Mg Base)/3 Ml Ampul.neb 3 ML PO Q6H PRN for SHORTNESS OF BREATH, EACH Ketoconazole (Ketoconazole) 2 % Shampoo 1 APPLIC TP TU,WE,TH,SA, EA APPLY TO HAIR/SCALP Lactobacillus Acidophilus (Probiotic) 10 Billion Cell Capsule 1 EACH PEG BID, CAP Lactulose (Lactulose) 10 Gram/15 Ml Solution 30 ML PEG DAILY, EA Levetiracetam (Keppra) 100 Mg/Ml Solution 7.5 ML PEG BID, EA Metoclopramide HCl (Metoclopramide HCl) 5 Mg Tablet 5 MG PEG Q6H, TAB Metoprolol Tartrate (Metoprolol Tartrate) 25 Mg Tablet 12.5 MG PEG BID, TAB TAKES OF A 25MG TAB HOLD FOR SBP <100 OR HR <55 Nystatin (Nystatin) 100,000 Unit/Gram Cream..g. 1 APPLIC TP BID, EA Oxybutynin Chloride (Oxybutynin Chloride) 5 Mg Tablet 5 MG PEG TID, TAB Polyethylene Glycol 3350 (Miralax) 17 Gram Powd.pack 17 GM PEG DAILY PRN for CONSTIPATION-2ND LINE, EACH Potassium Bicarbonate/Cit AC (Effer-K 20 Meq Tablet Eff) 20 Meq Tablet.eff 20 MEQ PEG DAILY, TAB More Harris May 23, 2022 12:56 MORE HARRIS DO May 23, 2022 12:57
--- NOTE | 2022-05-23 13:18 | Progress Note - Hospitalist ---
ALISA LEAL 05/23/22 1318: Subjective HPI/CC On Admission Date Seen by Provider: May 23, 2022 Time Seen by Provider: 13:10 Subjective/Events-last exam Patient being seen in follow up s/p subtotal colectomy with partial omentectomy and iliostomy Patient resting comfortably in bed. Had fever overnight that was corrected with tylenol and has not returned. Patient restarted tube feedings and is tolerating them. Hospital Course: 46 year old female NHP due to catastrophic disability from nonhemmorhagic stroke presented to [facility] from her [facility] due to bowel irregularity on 05/19. Patient was intially thought to have an SBO but on CT imaging had findings concerning for free air. Patient was transferred to [facility] with plans of an ex-lap to be performed by Dr. Viera, General Surgery. Patient was placed on zosyn and underwent procedure when ended up being a subtotal colectomy with partial ome ntectomy and ileostomy placement by general surgery on 05/20. After surgery patient was noted to have a UTI that was chronic from patient's indwelling catheter. Urine cx grew out klebsiella, proteus, SA. After patient finished course of zosyn, was put on ceftriaxone given klebsiella sensitivites. Patient was also noted to have some anterior rhonchi around tracheostomy site and had suctioning done by RT PRN. On POD 2 patient began having good output from her ostomy. On POD 3 patient began resuming gastrostomy tube feeds. On POD 4 patient was deemed fit to be discharged back to her NH facility. Patient will have follow up with Gen Surg per their recommendations. Patient is being discharged still on ceftriaxone and flaggyl which will need to be completed at the [place] facility. Review of Systems Unable to obtain ROS due to patient's current clinical status. Objective Exam Vital Signs Vital Signs Date Time Temp Pulse Resp B/P (MAP) Pulse Ox O2 Delivery O2 Flow Rate FiO2 05/23/22 11:32 36.1 80 18 112/65 (81) 97 Room Air 05/21/22 03:57 0.00 0.00 05/19/22 23:30 21 Capillary Refill : Less Than 3 SecondsLess Than 3 Seconds General Appearance: No Apparent Distress, Chronically ill Neck: Non Tender, Supple Respiratory: Lungs Clear, Normal Breath Sounds, No Accessory Muscle Use, No Respiratory Distress Cardiovascular: Regular Rate, Rhythm, No Murmur Gastrointestinal: Soft, Other (Ostomy patent and viable) Rectal: Deferred Extremity: No Inflammation; Pedal Edema (trace bilaterally ) Neurologic/Psychiatric: Alert, Other (Patient is non-verbal from chronic disability) Skin: Normal Color, Warm/Dry Results/Procedures Lab Laboratory Tests 05/23/22 05:07 Patient resulted labs reviewed. Assessment/Plan Assessment and Plan Assess & Plan/Chief Complaint S/P subtotal colectomy and partial omentectomy & ileostomy - POD 4 - Management per surgery team - Currently on flaggyl and ceftriaxone - Patient is chronically fed through percutaneous gastrostomy tube. Feedings managed by Surg team UTI - Noted to be chronic. Patient has indwelling cath - Grew out klebsiella and proteus, sensitive to ceftriaxone. Will start. - 05/23 grew out SA. awaiting sensitivities - Continue to monitor. Hx of Nontraumatic Hemmorhagic Stroke - Nontraumatic Hemmorhagic stroke occurred in May of 2021 leading to patient's current clinical condition. DVT Prophylaxis: Lovenox Dispo: D/C to [place] facility today MORE GONZALEZ DO 05/24/22 0517: Supervisory-Addendum Brief Verification & Attestation Participated in pt care: history, MDM, physical Personally performed: exam, history, MDM, supervision of care Care discussed with: Medical Student Procedures: n/a Results interpretation: Verified all documentation Verification and Attestation of Medical Student E/M Service A medical student performed and documented this service in my presence. I reviewed and verified all information documented by the medical student and made modifications to such information, when appropriate. I personally performed the physical exam and medical decision making. More Gonzalez May 24, 2022,05:17 ALISA LEAL May 23, 2022 13:18 MORE GONZALEZ DO May 24, 2022 05:17
[2022-05-23] MEDS: ENOXAPARIN 40 MG/0.4 ML (LOVENOX) SYR SC SCH (13:52)
[2022-05-23 16:03] VITALS: BP 100/54
[2022-05-23 16:30] VITALS: BP 100/54
== END 2022-05-23 16:30 | DRG 330 ==
LOC: ER FS 01:37 → 4TH 03:25
PROVIDERS: ADMIT Internal Medicine; ATTEND Internal Medicine
PROC: 0DTG0ZZ Resection of Left Large Intestine, Open Approach (ICD-10-PCS; 2022-05-19)
PROC: 0DBU0ZZ Excision of Omentum, Open Approach (ICD-10-PCS; 2022-05-19)
PROC: 0D1B0Z4 Bypass Ileum to Cutaneous, Open Approach (ICD-10-PCS; 2022-05-19)
PROC: 0DTF0ZZ Resection of Right Large Intestine, Open Approach (ICD-10-PCS; principal; 2022-05-19 13:05)
DX: K63.89 Other specified diseases of intestine (principal); N39.0 Urinary tract infection, site not specified; T83.518A Infection and inflammatory reaction due to other urinary catheter, initial encounter; I69.198 Other sequelae of nontraumatic intracerebral hemorrhage; M24.50 Contracture, unspecified joint; I69.128 Other speech and language deficits following nontraumatic intracerebral hemorrhage; R47.9 Unspecified speech disturbances; Z93.1 Gastrostomy status; Z93.0 Tracheostomy status; B96.4 Proteus (mirabilis) (morganii) as the cause of diseases classified elsewhere; B96.1 Klebsiella pneumoniae [K. pneumoniae] as the cause of diseases classified elsewhere; B95.61 Methicillin susceptible Staphylococcus aureus infection as the cause of diseases classified elsewhere; R00.0 Tachycardia, unspecified; E87.6 Hypokalemia; D64.9 Anemia, unspecified
CPT/HCPCS: 36415; 71045; 71250; 74176; 80053; 81000; 83690; 83735; 84100; 85025; 87081; 87088; 87186; 94760; 94799

== ENCOUNTER → 2022-05-31 | Outpatient (CLI) | payer MEDICAID ==
[~2022-05-31] MED LIST: ACET650O4 PEG; AMOX250S73 PO; AZEL137S11 NSEACH; BACL10TA PEG; BISA10SU8 RC; CRAN450T9 PEG; DOCU50LI26 PEG; ENOX40DI8 SC; FAMO40TA6 PEG; IPRA3AMP31 PO; KETO120S13 TP; LACT10SO3 PEG; LACT1CAP62 PEG; LEVE100S16 PEG; METO-333 PEG; METO5TAB2 PEG; NYST15CR35 TP; OXYB5TAB13 PEG; POLY17PO6 PEG; POTA20TA28 PEG
[2022-05-31 13:48] LABS: HEMOGLOBIN 12.2 g/dL (11.5-16.0); MEAN PLATELET VOLUME 10.5 fL (9.0-12.2); WHITE BLOOD COUNT 11.6 10^3/uL (4.3-11.0)
[2022-05-31 14:14] LABS: BILIRUBIN,TOTAL 0.2 MG/DL (0.1-1.0); CALCIUM 10.2 MG/DL (8.5-10.1); CREATININE SERUM 0.38 MG/DL (0.60-1.30); POTASSIUM 4.7 MMOL/L (3.6-5.0); TOTAL PROTEIN 7.5 GM/DL (6.4-8.2)
== END ==
LOC: LAB FS 13:11
PROVIDERS: ATTEND Family Medicine
DX: D72.829 Elevated white blood cell count, unspecified (principal)
CPT/HCPCS: 36415; 80053; 85027

== ENCOUNTER → 2022-07-27 | Outpatient (CLI) | payer SELFPAY ==
[2022-07-27 15:51] LABS: HEMATOCRIT 40 % (35-52); HEMOGLOBIN 13.3 g/dL (11.5-16.0); MEAN CORPUSCULAR HEMOGLOBIN 31 pg (25-34); MEAN CORPUSCULAR HGB CONC 33 g/dL (32-36); MEAN CORPUSCULAR VOLUME 94 fL (80-99); MEAN PLATELET VOLUME 12.1 fL (9.0-12.2); PLATELET COUNT 270 10^3/uL (130-400); WHITE BLOOD COUNT 9.8 10^3/uL (4.3-11.0)
[2022-07-27 16:03] LABS: CALCIUM 9.4 MG/DL (8.5-10.1); CREATININE SERUM 0.37 MG/DL (0.60-1.30); POTASSIUM 4.4 MMOL/L (3.6-5.0)
== END ==
LOC: LAB FS 15:30
PROVIDERS: ATTEND Family Medicine
DX: J96.10 Chronic respiratory failure, unspecified whether with hypoxia or hypercapnia (principal)
CPT/HCPCS: 36415; 80048; 85027

== ENCOUNTER → 2022-11-20 | Outpatient (CLI) | payer MEDICAID ==
[~2022-11-20] MED LIST changes: +ALBU0.63 PO; +ALBU2.5V4 PO; +DOCU50LI11 PEG; +HYDR118S10 PEG; +LEVO-55 PEG; +POTA-330 PEG
[2022-11-20 19:09] LABS: BILIRUBIN,URINE NEGATIVE (NEGATIVE); CLARITY,URINE CLOUDY; COLOR,URINE YELLOW; GLUCOSE, URINE (UA) NEGATIVE (NEGATIVE); KETONES,URINE TRACE (NEGATIVE); LEUKOCYTE ESTERASE ,URINE 2+ (NEGATIVE); NITRITE,URINE NEGATIVE (NEGATIVE); PH,URINE 6.5 (5-9); PROTEIN,URINE 2+ (NEGATIVE)
[2022-11-20 19:19] LABS: RBC,URINE >100 /HPF
[2022-11-20 19:20] LABS: BACTERIA,URINE MODERATE /HPF; WBC,URINE 50-100 /HPF
== END ==
PROVIDERS: ATTEND Family Medicine
DX: D72.829 Elevated white blood cell count, unspecified (principal)
CPT/HCPCS: 81000; 87088

== ENCOUNTER → 2022-11-20 | Outpatient (CLI) | payer MEDICAID ==
[2022-11-20 12:53] LABS: HEMATOCRIT 43 % (35-52); HEMOGLOBIN 14.2 g/dL (11.5-16.0); MEAN CORPUSCULAR HEMOGLOBIN 31 pg (25-34); MEAN CORPUSCULAR HGB CONC 33 g/dL (32-36); MEAN CORPUSCULAR VOLUME 92 fL (80-99); MEAN PLATELET VOLUME 12.1 fL (9.0-12.2); PLATELET COUNT 326 10^3/uL (130-400); WHITE BLOOD COUNT 15.5 10^3/uL (4.3-11.0)
[2022-11-20 13:22] LABS: BILIRUBIN,TOTAL 0.5 MG/DL (0.1-1.0); CALCIUM 9.7 MG/DL (8.5-10.1); CREATININE SERUM 0.39 MG/DL (0.60-1.30); POTASSIUM 3.7 MMOL/L (3.6-5.0)
[2022-11-20 13:23] LABS: ALBUMIN 4.2 GM/DL (3.2-4.5); TOTAL PROTEIN 7.2 GM/DL (6.4-8.2)
== END ==
PROVIDERS: ATTEND Family Medicine
DX: J96.10 Chronic respiratory failure, unspecified whether with hypoxia or hypercapnia (principal)
CPT/HCPCS: 80053; 85027

== ENCOUNTER 2022-11-21 10:15 | Inpatient (IN) | payer MEDICAID ==
[~2022-11-21] VITALS: Ht 172.8 cm; Wt 81.4 kg
[~2022-11-21 10:15] MED LIST changes: -ALBU0.63 PO; -ALBU2.5V4 PO; -DOCU50LI11 PEG; -HYDR118S10 PEG; -LEVO-55 PEG; -POTA-330 PEG
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
[2022-11-21 10:30] LABS: BASOPHILS # (AUTO) 0.1 10^3/uL (0.0-0.1); BASOPHILS % (AUTO) 0 % (0-10); EOSINOPHILS % (AUTO) 0 % (0-10); HEMATOCRIT 42 % (35-52); HEMOGLOBIN 13.9 g/dL (11.5-16.0); LYMPHOCYTES # (AUTO) 3.3 10^3/uL (1.0-4.0); LYMPHOCYTES % (AUTO) 20 % (12-44); MEAN CORPUSCULAR HEMOGLOBIN 31 pg (25-34); MEAN CORPUSCULAR HGB CONC 33 g/dL (32-36); MEAN CORPUSCULAR VOLUME 93 fL (80-99); MONOCYTES # (AUTO) 1.2 10^3/uL (0.0-1.0); MONOCYTES % (AUTO) 7 % (0-12); NEUTROPHILS # (AUTO) 11.6 10^3/uL (1.8-7.8); NEUTROPHILS % (AUTO) 72 % (42-75); PLATELET COUNT 301 10^3/uL (130-400); WHITE BLOOD COUNT 16.2 10^3/uL (4.3-11.0)
[2022-11-21 10:33] LABS: BILIRUBIN,URINE NEGATIVE (NEGATIVE); CLARITY,URINE TURBID; COLOR,URINE YELLOW; GLUCOSE, URINE (UA) NEGATIVE (NEGATIVE); KETONES,URINE NEGATIVE (NEGATIVE); LEUKOCYTE ESTERASE ,URINE 2+ (NEGATIVE); NITRITE,URINE NEGATIVE (NEGATIVE); PROTEIN,URINE 2+ (NEGATIVE)
[2022-11-21 10:46] LABS: INR 0.9 (0.8-1.4); PROTHROMBIN TIME PATIENT 12.9 SEC (12.2-14.7)
--- NOTE | 2022-11-21 10:56 | Diagnostic Imaging Report ---
INDICATION: Fever. EXAMINATION: Portable chest at 10:34 a.m. FINDINGS: There is an ET tube projecting over the trachea. Heart size and pulmonary vascularity are normal. Lungs are clear. There are no effusions or pneumothoraces. IMPRESSION: No acute abnormalities in the chest. Dictated by: Dictated on workstation # [id number]
[2022-11-21] MEDS ORDERED: NS IV 1000 ML 1,000 ML IV SCH ×2 (11:00→11:45)
[2022-11-21] MEDS ORDERED: CEFEPIME INJECTION 1,000 MG in NS (IVPB) 50 ML 50 ML IV ONE (11:00)
[2022-11-21 11:06] LABS: BACTERIA,URINE FEW /HPF; RBC,URINE 0-2 /HPF; SQUAMOUS EPITHELIAL CELL,UR 0-2 /HPF; WBC,URINE TNTC /HPF
[2022-11-21 11:07] LABS: HYALINE CASTS, URINE 0-2 /LPF
[2022-11-21 11:10] LABS: POTASSIUM 3.7 MMOL/L (3.6-5.0); SODIUM 133 MMOL/L (135-145)
[2022-11-21 11:11] LABS: ALANINE AMINOTRANSFERASE 36 U/L (0-55); ALKALINE PHOSPHATASE 115 U/L (40-136); BILIRUBIN,TOTAL 0.3 MG/DL (0.1-1.0); BUN/CREATININE RATIO 64; CALCIUM 9.8 MG/DL (8.5-10.1); CARBON DIOXIDE 21 MMOL/L (21-32); CHLORIDE 97 MMOL/L (98-107); CREATININE SERUM 0.47 MG/DL (0.60-1.30); GFR ESTIMATED 117; GLUCOSE 150 MG/DL (70-105); MAGNESIUM 2.3 MG/DL (1.6-2.4); TOTAL PROTEIN 7.7 GM/DL (6.4-8.2)
[2022-11-21 11:12] LABS: ALBUMIN 3.9 GM/DL (3.2-4.5)
[2022-11-21 11:21] LABS: BAND NEUTROPHILS 4 %; BASOPHILS % (MANUAL) 0 %; EOSINOPHILS % (MANUAL) 0 %; LYMPHOCYTES % (MANUAL) 24 %; MONOCYTES % (MANUAL) 5 %; NEUTROPHILS % (MANUAL) 67 %; PLATELET ESTIMATE ADEQUATE
[2022-11-21 11:22] LABS: RBC MORPH NORMAL
[2022-11-21] MEDS ORDERED: KETOROLAC INJ 15 MG/ML VIAL ONE (12:24)
[2022-11-21] MEDS ORDERED: KETOROLAC INJ 15 MG/ML VIAL IVP ONE (12:30)
[2022-11-21 13:22] VITALS: BP 159/100
[2022-11-21] MEDS ORDERED: oxyCODONE IMMEDIATE RELEASE 5 MG TABLET PO PRN (13:30)
[2022-11-21] MEDS ORDERED: diphenhydrAMINE INJ 50 MG/ML VIAL IVP PRN (13:30)
[2022-11-21] MEDS ORDERED: BISACODYL 10 MG SUPPOSITORY PR PRN (13:30)
[2022-11-21] MEDS ORDERED: diphenhydrAMINE 25 MG TABLET PO PRN (13:30)
[2022-11-21] MEDS ORDERED: ANTACID SUSPENSION 30 ML UDC PO PRN (13:30)
[2022-11-21] MEDS ORDERED: ONDANSETRON 4 MG ORAL DISSOLVE TABLET PO PRN (13:30)
[2022-11-21] MEDS ORDERED: MELATONIN 3 MG TABLET PO PRN (13:30)
[2022-11-21] MEDS ORDERED: NS IV 500 ML 500 ML IV PRN (13:30)
[2022-11-21] MEDS ORDERED: ONDANSETRON INJECTION 4 MG/2 ML (SDV) IV PRN (13:30)
[2022-11-21] MEDS ORDERED: ACETAMINOPHEN 325 MG TABLET PO PRN (13:30)
[2022-11-21] MEDS ORDERED: HYDROmorphone INJECTION 2 MG/ML VIAL IV PRN (13:30)
[2022-11-21] MEDS ORDERED: VANCOMYCIN INJECTION 0.1 MG in NS (IVPB) 250 ML 250 ML IV SCH (13:30)
[2022-11-21] MEDS ORDERED: LACTULOSE SYRUP 10GM/15ML 30ML UDC PO PRN (13:30)
[2022-11-21] MEDS: MEROPENEM INJECTION 500 MG in NS (IVPB) 100 ML 100 ML IV SCH ×2 (13:45→20:14)
[2022-11-21] MEDS: ENOXAPARIN 40 MG/0.4 ML SYRINGE SC SCH (13:46)
[2022-11-21] MEDS: NS IV 1000 ML 1,000 ML IV SCH ×2 (13:46→23:52)
[2022-11-21] MEDS ORDERED: VANCOMYCIN 1250MG/250ML PREMIX 250 ML IV NR (14:00)
[2022-11-21 14:01] LABS: ABG OXYGEN SATURATION 97 % (94-100); ABG PCO2 37 MMHG (35-45); ABG PH 7.37 (7.37-7.43); ABG PO2 77 MMHG (79-93); ABG TCO2 21.6 MMOL/L (21.0-31.0)
[2022-11-21 14:06] LABS: ALLENS TEST NEG; INSPIRED O2 RM; PATIENT TEMP 36.9; VENTILATOR NO
[2022-11-21 14:25] VITALS: BP 159/100
[2022-11-21] MEDS ORDERED: RT-ALBUTEROL SULF 2.5 MG/3 ML PRE-MIX VIAL INH PRN (14:45)
--- NOTE | 2022-11-21 15:16 | Tele-ICU Consult ---
History of Present Illness History of Present Illness Date Seen by Provider: Nov 21, 2022 Time Seen by Provider: 15:15 Date of Admission (Tele-ICU Physician , consultation as per request of PCP Service provided via interactive audio and video telecommunications E-CARE system to a patient admitted to ICU bed in [facility]. Available chart/ vitals / labs / Images reviewed H&P is from ER notes Patient's information available about PMH, Shx, Fhx allergy reviewed inEMR. ROS as per chart and RN report Now in ICU, hemodynamically stable Video assessment done using teleICU camera, rest of exam as per RN Discussed with RN. Hospital course: This is a 46yoWF NHP due to catastrophic disability following a hemorrhagic CVA 2021 , then SBO 06/06 11/21 - A/P Sepsis - presumed UTI - cont hydration , follow lactate UTI - ts as outpt-on Levaquin, , ABX expanded ( urostomy in place ) Elev lactate - presumed sepsis , but might need CTabd if not improving with fluid Elevated WOB , not hypoxic - s/p tracheostomy ( capped FUNERAL PRE NEED CONSULTANT , on RA ) - viral panel neg - cxr reported clear - no imahes available - no secretions as per RT /RN - will keep trach open, follow Hx of Nontraumatic Hemmorhagic Stroke - s/p tracheostomy -s/p PEG olostomy in place - SBO with perf viscvus 05/2022 , 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 Discussed with RN to reach out if any questions or concerns A total of 31 minutes of critical care time was devoted to this patient today, required to treat and/or prevent further deterioration of critical care condition ( as above ) . I am remotely monitoring this patient from another state. I am unable to do the bedside exam, and history/physical and pertinent information is taken from other notes in the computer and bedside staff. . Allergies and Home Medications Allergies Coded Allergies: No Known Drug Allergies (Unverified , 06/12/21) Home Medications Acetaminophen 650 Mg/20.3 Ml Oral.susp, 20.3 ML PEG Q6H PRN for PAIN-MILD (1-4) OR TEMPATURE, (Reported) Azelastine HCl 137 Mcg (0.1 %) [place].pump, 2 SPRAYS NSEACH HS, (Reported) Baclofen 10 Mg Tablet, 10 MG PEG BID, (Reported) Bisacodyl 10 Mg Supp.rect, 10 MG RC DAILY PRN for CONSTIPATION-4TH LINE, (Reported) Cranberry Fruit 450 Mg Tablet, 450 MG PEG BID, (Reported) Ipratropium/Albuterol Sulfate 0.5 Mg-3 Mg (2.5 Mg Base)/3 Ml Ampul.neb, 3 ML PO Q6H PRN for SHORTNESS OF BREATH, (Reported) Ketoconazole 2 % Shampoo, 1 APPLIC TP ,,,, (Reported) APPLY TO HAIR/SCALP Lactulose 10 Gram/15 Ml Solution, 30 ML PEG DAILY, (Reported) Levetiracetam 100 Mg/Ml Solution, 7.5 ML PEG BID, (Reported) Metoclopramide HCl 5 Mg Tablet, 5 MG PEG Q6H, (Reported) Nystatin 100,000 Unit/Gram Cream..g., 1 APPLIC TP BID, (Reported) Polyethylene Glycol 3350 17 Gram Powd.pack, 17 GM PEG DAILY PRN for CONSTIPA TION-2ND LINE, (Reported) Potassium Bicarbonate/Cit AC 20 Meq Tablet.eff, 20 MEQ PEG DAILY, (Reported) Past Medical/Social/Family Hx Patient Social History Tobacco Use?: No Use of E-Cig and/or Vaping dev: No Substance use?: No Alcohol Use?: No Immunizations Up To Date First/Initial COVID19 Vaccinat: 2020 Second COVID19 Vaccination Paul: 2020 Current Status Primary Language: Cuban Preferred Spoken Language: Cuban Review of Systems Constitutional: see HPI Focused Exam Lactate Level 11/21/22 10:23: Lactic Acid Level 2.87*H 11/21/22 13:45: Lactic Acid Level 3.13*H Height, Weight, BMI Height: '" Weight: lbs. oz. kg; 24.24 BMI Method: Lactic Acid Level Laboratory Tests Test 11/21/22 13:45 Lactic Acid Level 3.13 MMOL/L (0.50-2.00) *H Within 3hrs of presentation: Admin fluids, Admin ABX, Blood cultures prior to ABX's, Lactate level Exam Exam Patient acknowledged, consented, and participated in this virtual visit which was conducted using real time audio/video Vital Signs Date Time Temp Pulse Resp B/P (MAP) Pulse Ox O2 Delivery O2 Flow Rate FiO2 11/21/22 14:25 36.9 125 95 11/21/22 13:22 36.9 125 30 159/100 (119) 95 Room Air 11/21/22 12:00 37.7 124 28 129/91 94 Room Air 11/21/22 10:25 125 20 117/62 (80) 94 Room Air Height & Weight Height: '" Weight: lbs. oz. kg; 24.24 BMI Method: General Appearance: No Apparent Distress, Other (Patient has upper and lower extremity chronic contractures) HEENT: PERRL/EOMI, Normal ENT Inspection Neck: Supple Respiratory: Lungs Clear, Normal Breath Sounds, No Accessory Muscle Use Cardiovascular: No Edema, Tachycardia Extremity: Normal Inspection Neurologic/Psychiatric: Alert, Other (Unable to examine since patient cannot cooperate with exam due to being aphasic and chronic disability) Results Lab Laboratory Tests 11/21/22 10:23 Assessment/Plan Assessment/Plan 1 AMBERLY FRIEND MD Nov 21, 2022 15:16
[2022-11-21] MEDS ORDERED: ALBU0.63 PO (15:17)
[2022-11-21] MEDS ORDERED: ALBU2.5V4 PO (15:17)
[2022-11-21] MEDS ORDERED: DOCU50LI11 PEG (15:26)
[2022-11-21] MEDS ORDERED: HYDR118S10 PEG (15:29)
[2022-11-21] MEDS ORDERED: LEVO-55 PEG (15:31)
[2022-11-21] MEDS ORDERED: POTA-330 PEG (15:36)
[2022-11-21] MEDS: DOCUSATE SODIUM 100 MG CAPSULE PO SCH (20:42)
--- NOTE | 2022-11-21 21:05 | History & Physical-Hospitalist ---
History of Present Illness HPI/Chief Complaint Chief complaint: Sepsis from UTI HPI: This is a 47-year-old female who remains in a group home following a hemorrhagic stroke who has a trach and PEG placed and remains a full code per 's wishes who has extremity contractures and is nonverbal who presented from [facility] with fever and altered mental status found to have UTI. She is doing much better now since trach has been cleared of secretions. She will be placed on broad-spectrum antibiotics and await cultures. Source: RN/MD, old records Exam Limitations: clinical condition Date Seen 11/21/22 Time Seen by a Provider: 18:30 Attending Physician Bentley Khan MD PCP Admitting Physician: More Harris DO Attending Physician: More Harris DO Referring Physician Date of Admission Nov 21, 2022 at 13:24 Home Medications & Allergies Home Medications Reviewed patient Home Medication Reconciliation performed by pharmacy medication reconciliations machine technician and/or nursing. Patients Allergies have been reviewed. Allergies Allergies Coded Allergies No Known Drug Allergies (Unverified06/12/21) Past Cdeawyw-Jhfsvo-Noxpan Hx Patient Social History Marrital Status: Employed/Student: unemployed Tobacco Use?: No Smoking Status: Unknown if Ever Smoked Use of E-Cig and/or Vaping dev: No Substance use?: No Alcohol Use?: No Pt feels they are or have been: No Immunizations Up To Date First/Initial COVID19 Vaccinat: 2020 Second COVID19 Vaccination Paul: 2020 Current Status status: No status: No Advance Directives: No Communicates: Does Not Communicate Primary Language: South Korean Preferred Spoken Language: South Korean Past Medical History Surgeries: Abdominal, Section, Tracheostomy Currently Using CPAP: No Currently Using BIPAP: No Stroke Bladder Infection, UTI-Chronic Obstructive Bowel, Irritable Bowel Family Medical History Cancer Review of Systems Constitutional: see HPI Physical Exam Physical Exam Vital Signs Vital Signs - First Documented 11/21/22 11/21/22 11/21/22 10:25 12:00 15:20 Temp 37.7 Pulse 125 Resp 20 B/P (MAP) 117/62 (80) Pulse Ox 94 O2 Delivery Room Air O2 Flow Rate 8.00 FiO2 30 Capillary Refill : Height, Weight, BMI Height: '" Weight: lbs. oz. kg; 25.51 BMI Method: General Appearance: No Apparent Distress, Chronically ill Respiratory: No Accessory Muscle Use, No Respiratory Distress, Decreased Breath Sounds Cardiovascular: Regular Rate, Rhythm Extremity: Other ( contractures) Neurologic/Psychiatric: Other (Asleep) Results Results/Procedures Labs Laboratory Tests 11/21/22 10:23 Patient resulted labs reviewed. Assessment/Plan Admission Diagnosis Assessment: Sepsis UTI Severe debility following hemorrhagic stroke Trach status PEG tube status Extremities contractures Plan: IV antibiotics ICU Prognosis poor Admission Status: Inpatient Order (span 2 midnights) Reason for Inpatient Admission: Sepsis MORE HARRIS DO Nov 21, 2022 21:05
[2022-11-21] MEDS ORDERED: LACTATED RINGERS 1,000 ML 1,000 ML IV SCH (23:00)
[2022-11-22] MEDS: MEROPENEM INJECTION 500 MG in NS (IVPB) 100 ML 100 ML IV SCH ×4 (01:29→20:13)
[2022-11-22] MEDS: VANCOMYCIN 1 GM/NS 250 ML IVPB IV SCH ×4 (02:11→13:25)
[2022-11-22 05:27] LABS: BASOPHILS % (AUTO) 0 % (0-10); EOSINOPHILS # (AUTO) 0.1 10^3/uL (0.0-0.3); EOSINOPHILS % (AUTO) 1 % (0-10); HEMATOCRIT 30 % (35-52); HEMOGLOBIN 9.9 g/dL (11.5-16.0); LYMPHOCYTES # (AUTO) 2.6 10^3/uL (1.0-4.0); LYMPHOCYTES % (AUTO) 27 % (12-44); MEAN CORPUSCULAR HEMOGLOBIN 31 pg (25-34); MEAN CORPUSCULAR HGB CONC 33 g/dL (32-36); MEAN CORPUSCULAR VOLUME 95 fL (80-99); MONOCYTES # (AUTO) 0.8 10^3/uL (0.0-1.0); MONOCYTES % (AUTO) 9 % (0-12); NEUTROPHILS # (AUTO) 5.9 10^3/uL (1.8-7.8); NEUTROPHILS % (AUTO) 62 % (42-75); PLATELET COUNT 194 10^3/uL (130-400); WHITE BLOOD COUNT 9.5 10^3/uL (4.3-11.0)
[2022-11-22 05:37] LABS: ALBUMIN 2.8 GM/DL (3.2-4.5); POTASSIUM 3.3 MMOL/L (3.6-5.0)
[2022-11-22 05:39] LABS: TOTAL PROTEIN 5.1 GM/DL (6.4-8.2)
[2022-11-22 05:41] LABS: BILIRUBIN,TOTAL 0.6 MG/DL (0.1-1.0)
[2022-11-22 05:42] LABS: PHOSPHORUS 2.5 MG/DL (2.3-4.7)
[2022-11-22 05:43] LABS: CREATININE SERUM 0.45 MG/DL (0.60-1.30)
[2022-11-22 05:47] LABS: MAGNESIUM 1.8 MG/DL (1.6-2.4)
[2022-11-22] MEDS ORDERED: MAGNESIUM 1 GM/100 ML IVPB 200 ML IV ONE (05:52)
[2022-11-22] MEDS: MAGNESIUM 1 GM/100 ML IVPB 100 ML IV SCH ×2 (05:56→07:00)
[2022-11-22] MEDS ORDERED: MAGNESIUM 1 GM/100 ML IVPB 100 ML IV SCH (06:00)
[2022-11-22] MEDS ORDERED: POTASSIUM CHLORIDE 20 MEQ TABLET PO SCH (06:00)
[2022-11-22] MEDS ORDERED: POTASSIUM CL 10MEQ/50ML IVPB 50 ML IV SCH (06:00)
[2022-11-22] MEDS: POTASSIUM BICARB 20 MEQ effervescent TABLET PO SCH ×2 (06:39→09:10)
--- NOTE | 2022-11-22 08:03 | Progress Note - Hospitalist ---
Subjective HPI/CC On Admission Date Seen by Provider: Nov 22, 2022 Time Seen by Provider: 10:30 Chief complaint: Sepsis from UTI HPI: This is a 47-year-old female who remains in a jail following a hemorrhagic stroke who has a trach and PEG placed and remains a full code per 's wishes who has extremity contractures and is nonverbal who presented from [place] ER with fever and altered mental status found to have UTI. She is doing much better now since trach has been cleared of secretions. She will be placed on broad-spectrum antibiotics and await cultures. Subjective/Events-last exam No major issues We will move down to fourth floor asked questions and I answered to the best my ability No falls Patient appears to be comatose Review of Systems General: Fatigue, Malaise Focused Exam Lactate Level 11/21/22 10:23: Lactic Acid Level 2.87*H 11/21/22 13:45: Lactic Acid Level 3.13*H 11/21/22 16:31: Lactic Acid Level 1.85 Objective Exam Vital Signs Vital Signs Date Time Temp Pulse Resp B/P (MAP) Pulse Ox O2 Delivery O2 Flow Rate FiO2 11/23/22 04:19 36.5 81 18 104/61 (75) 98 Trach Collar 6.00 6.00 11/23/22 02:41 28 Capillary Refill : General Appearance: No Apparent Distress, WD/WN, Chronically ill Respiratory: Lungs Clear Cardiovascular: Regular Rate, Rhythm Neurologic/Psychiatric: Other (Nonverbal and semicomatose) Results/Procedures Lab Patient resulted labs reviewed. Assessment/Plan Assessment and Plan Assess & Plan/Chief Complaint Assessment: Sepsis UTI Severe debility following hemorrhagic stroke Trach status PEG tube status Extremities contractures Plan: IV antibiotics 4th Prognosis poor JOCELINE GONZALEZ DO Nov 22, 2022 08:03
[2022-11-22] MEDS: DOCUSATE SODIUM 100 MG CAPSULE PO SCH ×2 (09:11→19:26)
--- NOTE | 2022-11-22 10:34 | Tele-ICU Progress Note ---
Subjective Date Seen by a Provider: Nov 22, 2022 Time Seen by a Provider: 10:33 Subjective/Events-last exam (Tele-ICU Physician , Progress Note ) Service provided via interactive audio and video telecommunications E-CARE system to a patient admitted to ICU bed in [facility]. Patient is seen today due to persistent need of ICU care Available chart/ vitals / labs / Images reviewed Video assessment done using teleICU camera, rest of exam as per RN Discussed with RN Events overnight : Afebrile hemodynamically stable Respiratory - I/O =POS 4 L Hospital course: This is a 46yoWF NHP due to catastrophic disability following a hemorrhagic CVA 2021 ,(11/21) admitted with Urosepsis, decub on coccyx, chronic trach-capped then SBO 06/06 11/21 - 6l TC , A/P Sepsis - presumed UTI -stop hydration UTI - ts as outpt-on Levaquin, , ABX expanded - await cx results ( urostomy in place ) Elevated WOB , not hypoxic - s/p tracheostomy ( capped [employer] , on RA ) - viral panel neg - cxr reported clear - no imahes available - no secretions as per RT /RN - will keep trach open today , WEAN OFF O2 , WOB improved Hx of Nontraumatic Hemmorhagic Stroke - s/p tracheostomy -s/p PEG colostomy in place - SBO with perf viscvus 05/2022 , s/p subtotal colectomy with partial omentectomy and iliostomy Nutrition - start TF today Lines : , (Central Line Necessity Reviewed) Perez: OG: Nutrition: tf to start Analgesia: Anxiety/ delirium VTE Prophylaxis: jose roberto 40 Stress Ulcer Prophylaxis: na Plans in collaboration with bedside consultants and IM MDs. Discussed with RN to reach out if any questions or concerns A total of 20 minutes of critical care time was devoted to this patient today, required to treat and/or prevent further deterioration of critical care condition ( as above ) . I am remotely monitoring this patient from another state. I am unable to do the bedside exam, and history/physical and pertinent information is taken from other notes in the computer and bedside staff. . Sepsis Event Evaluation Height, Weight, BMI Height: '" Weight: lbs. oz. kg; 26.59 BMI Method: Focused Exam Lactate Level 11/21/22 10:23: Lactic Acid Level 2.87*H 11/21/22 13:45: Lactic Acid Level 3.13*H 11/21/22 16:31: Lactic Acid Level 1.85 Exam Exam Patient acknowledged, consented, and participated in this virtual visit which was conducted using real time audio/video Vital Signs Date Time Temp Pulse Resp B/P (MAP) Pulse Ox O2 Delivery O2 Flow Rate FiO2 11/22/22 10:09 99 Trach Collar 6.00 28 11/22/22 10:00 90 17 116/45 (76) 99 Trach Collar 28.00 11/22/22 09:00 75 17 104/46 (76) 99 Trach Collar 28.00 11/22/22 08:07 99 Trach Collar 6.00 11/22/22 08:00 37.2 11/22/22 08:00 78 17 109/46 (69) 100 Trach Collar 28.00 11/22/22 07:09 99 Trach Collar 6.00 28 11/22/22 07:00 88 20 115/62 (77) 100 Trach Collar 28.00 11/22/22 07:00 89 11/22/22 06:00 80 15 113/65 (81) 98 Trach Collar 28.00 11/22/22 05:30 90 19 127/48 (75) 98 Trach Collar 28.00 11/22/22 05:15 89 20 119/62 (77) 97 Trach Collar 28.00 11/22/22 05:00 91 20 123/47 (71) 98 Trach Collar 28.00 11/22/22 04:45 92 19 122/53 (86) 98 Trach Collar 28.00 11/22/22 04:30 116/68 (88) 11/22/22 04:15 93 20 123/64 (81) 99 Trach Collar 28.00 11/22/22 04:12 97 Trach Collar 6.00 28 11/22/22 04:00 37.8 93 20 117/55 (80) 99 Trach Collar 28.00 11/22/22 03:45 91 19 89/57 (65) 99 Trach Collar 28.00 11/22/22 03:30 92/45 (62) 11/22/22 03:15 81 16 90/46 (62) 98 Trach Collar 28.00 11/22/22 03:00 83 17 93/44 (67) 99 Trach Collar 28.00 11/22/22 02:48 Trach Collar 28.00 11/22/22 02:40 99 Trach Collar 8.00 30 11/22/22 01:45 84 16 98/49 (63) 98 Trach Collar 30.00 11/22/22 01:30 92/53 (67) 11/22/22 01:15 89 17 99/50 (69) 99 Trach Collar 30.00 11/22/22 01:00 93 11/22/22 01:00 96 19 106/60 (70) 99 Trach Collar 30.00 11/22/22 00:45 87 15 86/49 (67) 99 Trach Collar 30.00 11/22/22 00:30 92/50 (65) 11/22/22 00:15 102/60 (67) 11/22/22 00:08 37.4 11/22/22 00:00 96 18 103/60 (69) 98 Trach Collar 30.00 11/22/22 00:00 98 Trach Collar 8.00 30 11/21/22 23:00 98 19 105/65 (78) 99 Trach Collar 30.00 11/21/22 22:45 96 18 101/49 (63) 98 Trach Collar 30.00 11/21/22 22:30 98 16 92/43 (78) 98 Trach Collar 30.00 11/21/22 22:15 88 15 83/45 (59) 99 Trach Collar 30.00 11/21/22 22:01 98 Trach Collar 8.00 30 11/21/22 22:00 89 18 88/53 (63) 98 Trach Collar 30.00 11/21/22 21:45 86 16 83/45 (55) 99 Trach Collar 30.00 11/21/22 21:30 87 15 86/47 (64) 99 Trach Collar 30.00 11/21/22 21:15 90 16 91/48 (58) 99 Trach Collar 30.00 11/21/22 21:00 90 16 91/48 (63) 100 Trach Collar 30.00 11/21/22 20:45 92 16 89/51 (58) 99 Trach Collar 30.00 11/21/22 20:30 91 17 103/50 (67) 99 Trach Collar 30.00 11/21/22 20:15 92 16 87/46 (59) 99 Trach Collar 30.00 11/21/22 20:00 99 Trach Collar 8.00 30 11/21/22 20:00 92 16 85/46 (54) 99 Trach Collar 30.00 11/21/22 19:51 36.3 11/21/22 19:45 101 16 92/48 (61) 99 Trach Collar 30.00 11/21/22 19:36 92 18 82/46 (58) Trach Collar 30.00 11/21/22 19:31 92 16 84/46 (59) Trach Collar 30.00 11/21/22 19:30 91 17 84/34 (54) Trach Collar 30.00 11/21/22 19:15 93 16 81/42 (58) Trach Collar 30.00 11/21/22 19:00 100 11/21/22 19:00 96 15 80/41 (54) Trach Collar 30.00 11/21/22 18:46 99 Trach Collar 8.00 30 11/21/22 18:00 106 17 100/62 (75) 99 Trach Collar 30.00 11/21/22 17:15 Trach Collar 30.00 11/21/22 17:00 104 13 93/52 (66) 99 Trach Collar 30.00 11/21/22 16:00 99 Trach Collar 8.00 30 11/21/22 16:00 102 15 88/51 (63) 98 Trach Collar 30.00 11/21/22 15:30 121 16 104/64 (77) 98 Trach Collar 30.00 11/21/22 15:29 Trach Collar 30.00 11/21/22 15:20 97 Trach Collar 8.00 30 11/21/22 15:15 131 28 152/90 (110) 91 Room Air 11/21/22 15:00 133 29 135/89 (104) 92 Room Air 11/21/22 14:45 133 34 154/91 (112) 92 Room Air 11/21/22 14:30 133 28 166/82 (110) 92 Room Air 11/21/22 14:25 36.9 125 95 11/21/22 14:15 130 26 145/85 (105) 93 Room Air 11/21/22 14:00 125 28 166/84 (111) 96 Room Air 11/21/22 13:45 134 25 117/79 (92) 96 Room Air 11/21/22 13:30 132 11/21/22 13:25 96 Room Air 11/21/22 13:22 36.9 Room Air 11/21/22 13:22 36.9 125 30 159/100 (119) 95 Room Air 11/21/22 13:15 138 29 159/100 (119) 92 Room Air 11/21/22 12:00 37.7 124 28 129/91 94 Room Air I & O 11/22/22 07:00 Intake Total 4660 ml Output Total 625 ml Balance 4035 ml Height & Weight Height: '" Weight: lbs. oz. kg; 26.59 BMI Method: General Appearance: No Apparent Distress, Chronically ill HEENT: PERRL/EOMI, Normal ENT Inspection Neck: Supple Respiratory: No Accessory Muscle Use, No Respiratory Distress, Decreased Breath Sounds Cardiovascular: Regular Rate, Rhythm Extremity: Other ( contractures) Neurologic/Psychiatric: Other (Asleep) Results Lab Laboratory Tests 11/21/22 10:23 11/22/22 03:55 Assessment/Plan Assessment/Plan 1 AMBERLY FRIEND MD Nov 22, 2022 10:33
[2022-11-22] MEDS ORDERED: [UNRECOGNIZED DRUG - OTHER] PEG PRN (12:30)
[2022-11-22] MEDS ORDERED: METOCLOPRAMIDE 5 MG TABLET PEG SCH (12:30)
[2022-11-22] MEDS ORDERED: RT-Ipratropium/Albuterol NEB 3 ML VIAL IH PRN (12:30)
[2022-11-22] MEDS ORDERED: HYDROCODONE PEG PRN (12:30)
[2022-11-22] MEDS ORDERED: ALBUTEROL SULFATE PO PRN (12:30)
[2022-11-22] MEDS ORDERED: BISACODYL 10 MG SUPPOSITORY RC PRN (12:30)
[2022-11-22] MEDS ORDERED: ACETAMINOPHEN PEG PRN ×2 (12:30)
[2022-11-22] MEDS ORDERED: NON-FORMULARY MEDICATION 1 EA EA (Ketoconazole 1 APPLIC) TP SCH (12:30)
[2022-11-22] MEDS ORDERED: ACETAMINOPHEN 325 MG/10.15 ML ORAL SOLN UDC PEG PRN (13:00)
[2022-11-22] MEDS ORDERED: HYDROcodone/APAP 7.5MG-325 MG/15 ML ORAL SOLN PEG PRN (13:00)
[2022-11-22] MEDS: METOCLOPRAMIDE 10 MG/10 ML PEG SCH ×2 (13:25→17:22)
[2022-11-22] MEDS: ENOXAPARIN 40 MG/0.4 ML SYRINGE SC SCH (13:25)
[2022-11-22] MEDS: NS IV 1000 ML 1,000 ML IV SCH (14:04)
[2022-11-22] MEDS: DOCUSATE SODIUM 100 MG/10 ML UDC ORAL SOLN PEG SCH (20:13)
[2022-11-22] MEDS: BACLOFEN 10 MG TABLET PEG SCH (20:13)
[2022-11-22] MEDS: LevETIRAcetam 500 MG/ 5 ML UDC ORAL SOLN PEG SCH (20:14)
[2022-11-22] MEDS: NYSTATIN CREAM 30 GM TUBE TP SCH (20:36)
[2022-11-22] MEDS ORDERED: NON-FORMULARY MEDICATION 1 EA EA (Cranberry Fruit (Cranberry) 450 MG) GT SCH (21:00)
[2022-11-22] MEDS ORDERED: AZELASTINE HCL NSEACH SCH (21:00)
[2022-11-23] MEDS: METOCLOPRAMIDE 10 MG/10 ML PEG SCH ×4 (01:07→18:37)
[2022-11-23] MEDS: MEROPENEM INJECTION 500 MG in NS (IVPB) 100 ML 100 ML IV SCH ×3 (01:08→13:56)
[2022-11-23] MEDS: VANCOMYCIN 1 GM/NS 250 ML IVPB IV SCH ×4 (02:14→14:26)
[2022-11-23] MEDS: POTASSIUM CHLORIDE 20 MEQ TABLET PO SCH (06:21)
[2022-11-23 07:00] LABS: BASOPHILS % (AUTO) 1 % (0-10); EOSINOPHILS # (AUTO) 0.2 10^3/uL (0.0-0.3); EOSINOPHILS % (AUTO) 2 % (0-10); HEMATOCRIT 33 % (35-52); HEMOGLOBIN 10.2 g/dL (11.5-16.0); LYMPHOCYTES # (AUTO) 1.5 10^3/uL (1.0-4.0); LYMPHOCYTES % (AUTO) 21 % (12-44); MEAN CORPUSCULAR HEMOGLOBIN 30 pg (25-34); MEAN CORPUSCULAR HGB CONC 31 g/dL (32-36); MEAN CORPUSCULAR VOLUME 98 fL (80-99); MEAN PLATELET VOLUME 11.7 fL (9.0-12.2); MONOCYTES # (AUTO) 0.5 10^3/uL (0.0-1.0); MONOCYTES % (AUTO) 7 % (0-12); NEUTROPHILS # (AUTO) 5.2 10^3/uL (1.8-7.8); NEUTROPHILS % (AUTO) 70 % (42-75); PLATELET COUNT 175 10^3/uL (130-400); WHITE BLOOD COUNT 7.5 10^3/uL (4.3-11.0)
[2022-11-23 07:08] LABS: ALBUMIN 2.9 GM/DL (3.2-4.5); POTASSIUM 3.2 MMOL/L (3.6-5.0)
[2022-11-23 07:09] LABS: CALCIUM 8.2 MG/DL (8.5-10.1)
[2022-11-23 07:11] LABS: TOTAL PROTEIN 5.7 GM/DL (6.4-8.2)
[2022-11-23 07:12] LABS: BILIRUBIN,TOTAL 0.4 MG/DL (0.1-1.0)
[2022-11-23 07:14] LABS: CREATININE SERUM 0.46 MG/DL (0.60-1.30)
[2022-11-23 07:17] LABS: MAGNESIUM 1.9 MG/DL (1.6-2.4)
[2022-11-23] MEDS: NS IV 1000 ML 1,000 ML IV SCH (07:54)
--- NOTE | 2022-11-23 08:29 | Progress Note - Hospitalist ---
Subjective HPI/CC On Admission Date Seen by Provider: Nov 23, 2022 Time Seen by Provider: 11:00 Chief complaint: Sepsis from UTI HPI: This is a 47-year-old female who remains in a alf following a hemorrhagic stroke who has a trach and PEG placed and remains a full code per 's wishes who has extremity contractures and is nonverbal who presented from [place] ER with fever and altered mental status found to have UTI. She is doing much better now since trach has been cleared of secretions. She will be placed on broad-spectrum antibiotics and await cultures. Subjective/Events-last exam No major changes at bedside asking how she is doing and how her infection is doing Aggressive care continues in catastrophic CVA patient in NH on trach and PEG unable to process information or communicate Review of Systems Neurological: Other (semicomatose) Focused Exam Lactate Level 11/21/22 10:23: Lactic Acid Level 2.87*H 11/21/22 13:45: Lactic Acid Level 3.13*H 11/21/22 16:31: Lactic Acid Level 1.85 Objective Exam Vital Signs Vital Signs Date Time Temp Pulse Resp B/P (MAP) Pulse Ox O2 Delivery O2 Flow Rate FiO2 11/23/22 15:25 97 Trach Collar 6.00 28 11/23/22 12:10 36.5 18 90/56 (67) 11/23/22 04:19 81 Capillary Refill : General Appearance: No Apparent Distress, WD/WN, Chronically ill Respiratory: Lungs Clear, Normal Breath Sounds Cardiovascular: Regular Rate, Rhythm Results/Procedures Lab Laboratory Tests 11/23/22 06:15 Patient resulted labs reviewed. Assessment/Plan Assessment and Plan Assess & Plan/Chief Complaint Assessment: Sepsis UTI-Proteus changed from Angelo to Rocephin based on sensitivity Severe debility following catastrophic hemorrhagic stroke Trach status PEG tube status Extremities contractures Plan: IV antibiotic change 4th Prognosis poor JOCELINE GONZALEZ DO Nov 23, 2022 08:29
[2022-11-23] MEDS ORDERED: NON-FORMULARY MEDICATION 1 EA EA (Potassium Chloride 20 MEQ) PEG SCH (09:00)
[2022-11-23] MEDS ORDERED: LACTULOSE 10 GM/15 ML 30 ML POUR BOTTLE FOR ENEMA PO SCH (09:00)
[2022-11-23] MEDS: BACLOFEN 10 MG TABLET PEG SCH ×2 (09:35→20:38)
[2022-11-23] MEDS: LACTULOSE SYRUP 10GM/15ML 30ML UDC PEG SCH (09:35)
[2022-11-23] MEDS: DOCUSATE SODIUM 100 MG/10 ML UDC ORAL SOLN PEG SCH ×2 (09:35→20:34)
[2022-11-23] MEDS: LevETIRAcetam 500 MG/ 5 ML UDC ORAL SOLN PEG SCH ×2 (09:38→20:38)
[2022-11-23] MEDS: DOCUSATE SODIUM 100 MG CAPSULE PO SCH ×2 (09:38→20:33)
[2022-11-23] MEDS: NYSTATIN CREAM 30 GM TUBE TP SCH ×2 (09:38→20:39)
[2022-11-23] MEDS: POTASSIUM CL 10MEQ/50ML IVPB 50 ML IV SCH ×2 (13:55→14:45)
[2022-11-23] MEDS: ENOXAPARIN 40 MG/0.4 ML SYRINGE SC SCH (13:55)
[2022-11-23 16:00] VITALS: BP 95/59
[2022-11-23] MEDS: cefTRIAXone IV/IM 1,000 MG in NS (IVPB) 50 ML 50 ML IV SCH (16:39)
[2022-11-23 19:40] VITALS: BP 93/59
[2022-11-24] VITALS (7 sets, daily range): BP systolic 90–100; BP diastolic 50–61
[2022-11-24] MEDS: METOCLOPRAMIDE 10 MG/10 ML PEG SCH ×4 (03:16→18:07)
[2022-11-24] MEDS: VANCOMYCIN 1 GM/NS 250 ML IVPB IV SCH ×2 (03:16)
--- NOTE | 2022-11-24 06:15 | Progress Note - Hospitalist ---
Subjective HPI/CC On Admission Date Seen by Provider: Nov 24, 2022 Time Seen by Provider: 12:00 Chief complaint: Sepsis from UTI HPI: This is a 47-year-old female who remains in a [facility] following a hemorrhagic stroke who has a trach and PEG placed and remains a full code per 's wishes who has extremity contractures and is nonverbal who presented from [place] ER with fever and altered mental status found to have UTI. She is doing much better now since trach has been cleared of secretions. She will b e placed on broad-spectrum antibiotics and await cultures. Subjective/Events-last exam No major issues at the bedside Labs reviewed Supplementing potassium Antibiotics maintained Focused Exam Lactate Level Objective Exam Vital Signs Vital Signs Date Time Temp Pulse Resp B/P (MAP) Pulse Ox O2 Delivery O2 Flow Rate FiO2 11/24/22 16:51 37.9 11/24/22 16:31 92 16 100/53 (69) Trach Collar 6.00 11/24/22 15:52 97 28 Capillary Refill : General Appearance: No Apparent Distress, WD/WN, Chronically ill, Other (Semicomatose) Respiratory: Lungs Clear Cardiovascular: Regular Rate, Rhythm Results/Procedures Lab Laboratory Tests 11/24/22 06:55 Patient resulted labs reviewed. Assessment/Plan Assessment and Plan Assess & Plan/Chief Complaint Assessment: Sepsis UTI-Proteus changed from Angelo to Rocephin based on sensitivity Severe debility following catastrophic hemorrhagic stroke Trach status PEG tube status Extremities contractures Plan: IV antibiotic change 4th Prognosis poor JOCELINE GONZALEZ DO Nov 24, 2022 06:15
[2022-11-24] MEDS: POTASSIUM CHLORIDE 20 MEQ TABLET PO SCH (06:44)
[2022-11-24 07:12] LABS: BASOPHILS % (AUTO) 1 % (0-10); EOSINOPHILS # (AUTO) 0.2 10^3/uL (0.0-0.3); EOSINOPHILS % (AUTO) 2 % (0-10); HEMATOCRIT 33 % (35-52); HEMOGLOBIN 10.6 g/dL (11.5-16.0); LYMPHOCYTES # (AUTO) 2.4 10^3/uL (1.0-4.0); LYMPHOCYTES % (AUTO) 32 % (12-44); MEAN CORPUSCULAR HEMOGLOBIN 31 pg (25-34); MEAN CORPUSCULAR HGB CONC 33 g/dL (32-36); MEAN CORPUSCULAR VOLUME 95 fL (80-99); MEAN PLATELET VOLUME 11.2 fL (9.0-12.2); MONOCYTES # (AUTO) 0.7 10^3/uL (0.0-1.0); MONOCYTES % (AUTO) 9 % (0-12); NEUTROPHILS # (AUTO) 4.2 10^3/uL (1.8-7.8); NEUTROPHILS % (AUTO) 56 % (42-75); PLATELET COUNT 250 10^3/uL (130-400); WHITE BLOOD COUNT 7.6 10^3/uL (4.3-11.0)
[2022-11-24 07:33] LABS: ALBUMIN 3.1 GM/DL (3.2-4.5); BILIRUBIN,TOTAL 0.2 MG/DL (0.1-1.0); CALCIUM 8.1 MG/DL (8.5-10.1); CREATININE SERUM 0.51 MG/DL (0.60-1.30); MAGNESIUM 1.8 MG/DL (1.6-2.4); POTASSIUM 3.4 MMOL/L (3.6-5.0); TOTAL PROTEIN 5.8 GM/DL (6.4-8.2)
[2022-11-24] MEDS: DOCUSATE SODIUM 100 MG CAPSULE PO SCH ×2 (08:09→20:49)
[2022-11-24] MEDS: DOCUSATE SODIUM 100 MG/10 ML UDC ORAL SOLN PEG SCH ×2 (08:09→20:48)
[2022-11-24] MEDS: LevETIRAcetam 500 MG/ 5 ML UDC ORAL SOLN PEG SCH ×2 (08:09→20:49)
[2022-11-24] MEDS: BACLOFEN 10 MG TABLET PEG SCH ×2 (08:09→20:49)
[2022-11-24] MEDS: LACTULOSE SYRUP 10GM/15ML 30ML UDC PEG SCH (08:09)
[2022-11-24] MEDS: NYSTATIN CREAM 30 GM TUBE TP SCH ×2 (08:10→20:59)
[2022-11-24] MEDS ORDERED: POTASSIUM BICARB 20 MEQ effervescent TABLET PEG NR (13:00)
[2022-11-24] MEDS: ENOXAPARIN 40 MG/0.4 ML SYRINGE SC SCH (13:17)
[2022-11-24] MEDS: cefTRIAXone IV/IM 1,000 MG in NS (IVPB) 50 ML 50 ML IV SCH (16:50)
[2022-11-25] VITALS (7 sets, daily range): BP systolic 90–101; BP diastolic 55–65
[2022-11-25] MEDS: METOCLOPRAMIDE 10 MG/10 ML PEG SCH ×4 (01:38→17:45)
[2022-11-25 05:47] LABS: BASOPHILS % (AUTO) 0 % (0-10); EOSINOPHILS # (AUTO) 0.1 10^3/uL (0.0-0.3); EOSINOPHILS % (AUTO) 1 % (0-10); HEMATOCRIT 33 % (35-52); HEMOGLOBIN 10.6 g/dL (11.5-16.0); LYMPHOCYTES % (AUTO) 28 % (12-44); MEAN CORPUSCULAR HEMOGLOBIN 31 pg (25-34); MEAN CORPUSCULAR HGB CONC 32 g/dL (32-36); MEAN CORPUSCULAR VOLUME 96 fL (80-99); MEAN PLATELET VOLUME 11.1 fL (9.0-12.2); MONOCYTES # (AUTO) 0.6 10^3/uL (0.0-1.0); MONOCYTES % (AUTO) 8 % (0-12); NEUTROPHILS # (AUTO) 4.4 10^3/uL (1.8-7.8); NEUTROPHILS % (AUTO) 62 % (42-75); PLATELET COUNT 252 10^3/uL (130-400)
[2022-11-25] MEDS: POTASSIUM BICARB 20 MEQ effervescent TABLET PEG SCH (06:04)
[2022-11-25] MEDS: POTASSIUM CHLORIDE 20 MEQ TABLET PO SCH (06:04)
[2022-11-25 06:16] LABS: BILIRUBIN,TOTAL 0.1 MG/DL (0.1-1.0); CALCIUM 8.1 MG/DL (8.5-10.1); CREATININE SERUM 0.53 MG/DL (0.60-1.30); MAGNESIUM 1.7 MG/DL (1.6-2.4); POTASSIUM 3.5 MMOL/L (3.6-5.0); TOTAL PROTEIN 5.9 GM/DL (6.4-8.2)
[2022-11-25] MEDS: BACLOFEN 10 MG TABLET PEG SCH ×2 (08:53→22:21)
[2022-11-25] MEDS: LACTULOSE SYRUP 10GM/15ML 30ML UDC PEG SCH (08:53)
[2022-11-25] MEDS: DOCUSATE SODIUM 100 MG CAPSULE PO SCH (08:54)
[2022-11-25] MEDS: NYSTATIN CREAM 30 GM TUBE TP SCH ×2 (08:54→22:22)
[2022-11-25] MEDS: LevETIRAcetam 500 MG/ 5 ML UDC ORAL SOLN PEG SCH ×2 (08:54→22:22)
[2022-11-25] MEDS: DOCUSATE SODIUM 100 MG/10 ML UDC ORAL SOLN PEG SCH ×2 (08:54→22:22)
[2022-11-25] MEDS: ENOXAPARIN 40 MG/0.4 ML SYRINGE SC SCH (13:14)
--- NOTE | 2022-11-25 14:40 | Progress Note ---
Subjective Subjective/Events-last exam Afebrile, no acute events. SO at bedside states she does not usually use oxygen with her trach, it is usually capped. Objective Exam Last Set of Vital Signs Vital Signs Date Time Temp Pulse Resp B/P (MAP) Pulse Ox O2 Delivery O2 Flow Rate FiO2 11/25/22 12:09 36.1 87 20 99/64 (76) Trach Collar 6.00 11/25/22 08:41 95 11/25/22 07:30 28 Capillary Refill : I&O Intake and Output 11/25/22 00:00 Intake Total 1530 ml Output Total 2850 ml Balance -1320 ml Intake Oral 0 ml IV Total 50 ml Tube Feeding 920 ml Enteral Flush 560 ml Output Urine Total 800 ml Stool Total 2050 ml General: Alert Lungs: Clear to Auscultation Heart: Regular Rate Abdomen: Normal Bowel Sounds, Soft, Other (ostomy bag with brown liquid) Extremities: No Edema Results/Procedures Lab Laboratory Tests 11/25/22 05:32: White Blood Count 7.0, Red Blood Count 3.42L, Hemoglobin 10.6L, Hematocrit 33L, Mean Corpuscular Volume 96, Mean Corpuscular Hemoglobin 31, Mean Corpuscular Hemoglobin Concent 32, Red Cell Distribution Width 13.1, Platelet Count 252, Mean Platelet Volume 11.1, Immature Granulocyte % (Auto) 0, Neutrophils (%) (Au to) 62, Lymphocytes (%) (Auto) 28, Monocytes (%) (Auto) 8, Eosinophils (%) (Auto) 1, Basophils (%) (Auto) 0, Neutrophils # (Auto) 4.4, Lymphocytes # (Auto) 2.0, Monocytes # (Auto) 0.6, Eosinophils # (Auto) 0.1, Basophils # (Auto) 0.0, Immature Granulocyte # (Auto) 0.0, Sodium Level 142, Potassium Level 3.5L, Chloride Level 111H, Carbon Dioxide Level 22, Anion Gap 9, Blood Urea Nitrogen 10, Creatinine 0.53L, Estimat Glomerular Filtration Rate 113, BUN/Creatinine Ratio 19, Glucose Level 154H, Calcium Level 8.1L, Corrected Calcium 8.9, Magnesium Level 1.7, Total Bilirubin 0.1, Aspartate Amino Transf (AST/SGOT) 13, Alanine Aminotransferase (ALT/SGPT) 15, Alkaline Phosphatase 65, Total Protein 5.9L, Albumin 3.0L Microbiology 11/21/22 MRSA Screen - Final, Complete 11/21/22 Urine Culture - Preliminary, Resulted Staphylococcus aureus Proteus mirabilis 11/21/22 Blood Culture - Preliminary, Resulted Assessment/Plan Assessment/Plan Assessment & Plan Sepsis UTI-Proteus changed from Angelo to Rocephin based on sensitivity Severe debility following catastrophic hemorrhagic stroke Trach status PEG tube status Extremities contractures (1) Sepsis Status: Acute Assessment & Plan: Secondary to UTI, improved. Urine culture with MRSA and proteus, change to Bactrim and cephalexin per sensitivities. Qualifiers: Qualified Codes: A41.9 - Sepsis, unspecified organism (2) Acute cystitis with hematuria Status: Acute (3) Hypoxic Status: Acute Assessment & Plan: Uncertain etiology, CXR unremarkable, wean O2 as tolerated. (4) Tracheostomy status Status: Chronic Assessment & Plan: Per SO does not require supplemental oxygen at baseline, will wean as tolerated (5) History of hemorrhagic cerebrovascular accident (CVA) with residual deficit Status: Chronic Assessment & Plan: Nonverbal and immobile at baseline, lives in nursing facility. (6) Altered bowel elimination due to intestinal ostomy (7) Nonverbal (8) DVT prophylaxis Status: Acute Assessment & Plan: Enoxaparin ADDISON DORAN MD Nov 25, 2022 14:40
[2022-11-25] MEDS ORDERED: POTASSIUM CHLORIDE 20 MEQ TABLET PO NR (15:00)
[2022-11-25] MEDS ORDERED: POTASSIUM BICARB 20 MEQ effervescent TABLET PO NR (17:00)
[2022-11-25] MEDS: Sulfamethoxazole/Trimethoprim DS TABLET PO SCH (17:44)
[2022-11-25] MEDS: CEPHALEXIN 250 MG CAPSULE PO SCH (22:22)
[2022-11-26] MEDS: METOCLOPRAMIDE 10 MG/10 ML PEG SCH ×2 (00:06→06:25)
[2022-11-26 04:02] VITALS: BP 94/54
[2022-11-26 06:10] LABS: BASOPHILS % (AUTO) 0 % (0-10); EOSINOPHILS # (AUTO) 0.1 10^3/uL (0.0-0.3); EOSINOPHILS % (AUTO) 1 % (0-10); HEMATOCRIT 34 % (35-52); LYMPHOCYTES # (AUTO) 2.9 10^3/uL (1.0-4.0); LYMPHOCYTES % (AUTO) 28 % (12-44); MEAN CORPUSCULAR HEMOGLOBIN 31 pg (25-34); MEAN CORPUSCULAR HGB CONC 33 g/dL (32-36); MEAN CORPUSCULAR VOLUME 94 fL (80-99); MEAN PLATELET VOLUME 10.7 fL (9.0-12.2); MONOCYTES # (AUTO) 0.8 10^3/uL (0.0-1.0); MONOCYTES % (AUTO) 8 % (0-12); NEUTROPHILS # (AUTO) 6.5 10^3/uL (1.8-7.8); NEUTROPHILS % (AUTO) 62 % (42-75); PLATELET COUNT 258 10^3/uL (130-400); WHITE BLOOD COUNT 10.4 10^3/uL (4.3-11.0)
[2022-11-26] MEDS: POTASSIUM BICARB 20 MEQ effervescent TABLET PEG SCH (06:25)
[2022-11-26] MEDS: POTASSIUM CHLORIDE 20 MEQ TABLET PO SCH (06:25)
[2022-11-26 06:36] LABS: ALBUMIN 3.2 GM/DL (3.2-4.5); BILIRUBIN,TOTAL 0.4 MG/DL (0.1-1.0); CALCIUM 8.5 MG/DL (8.5-10.1); CREATININE SERUM 0.54 MG/DL (0.60-1.30); MAGNESIUM 1.9 MG/DL (1.6-2.4); POTASSIUM 4.4 MMOL/L (3.6-5.0); TOTAL PROTEIN 6.1 GM/DL (6.4-8.2)
[2022-11-26] MEDS ORDERED: SULF1TAB38 GT (07:43)
[2022-11-26] MEDS ORDERED: CEPH250C GT (07:43)
[2022-11-26 07:54] VITALS: BP 94/60
[2022-11-26] MEDS: BACLOFEN 10 MG TABLET PEG SCH (08:38)
[2022-11-26] MEDS: LevETIRAcetam 500 MG/ 5 ML UDC ORAL SOLN PEG SCH (08:39)
[2022-11-26] MEDS: NYSTATIN CREAM 30 GM TUBE TP SCH (08:39)
[2022-11-26] MEDS: LACTULOSE SYRUP 10GM/15ML 30ML UDC PEG SCH (08:39)
[2022-11-26] MEDS: CEPHALEXIN 250 MG CAPSULE PO SCH (08:39)
[2022-11-26] MEDS: DOCUSATE SODIUM 100 MG/10 ML UDC ORAL SOLN PEG SCH (08:39)
[2022-11-26] MEDS: Sulfamethoxazole/Trimethoprim DS TABLET PO SCH (08:39)
--- NOTE | 2022-11-26 11:09 | Discharge Summary ---
Discharge Summary Hospital Course Problems/Diagnosis: (1) Sepsis Status: Resolved Resolution Date/Time: 11/26/22 @ 18:08 Assessment & Plan: Secondary to UTI, improved. Urine culture with MRSA and proteus, changed to Bactrim and cephalexin per sensitivities. Qualifiers: Qualified Codes: A41.9 - Sepsis, unspecified organism (2) Acute cystitis with hematuria Status: Resolved Resolution Date/Time: 11/26/22 @ 18:08 (3) Hypoxic Status: Resolved Resolution Date/Time: 11/26/22 @ 18:08 Assessment & Plan: Uncertain etiology, CXR unremarkable, was able to wean off of O2 without incident. (4) Tracheostomy status Status: Chronic (5) History of hemorrhagic cerebrovascular accident (CVA) with residual deficit Status: Chronic Assessment & Plan: Nonverbal and immobile at baseline, lives in nursing facility. (6) Altered bowel elimination due to intestinal ostomy (7) Nonverbal Hospital Course Date of Admission: Nov 21, 2022 at 13:24 Admission Diagnosis : Family Physician/Provider: Bentley Khan MD Date of Discharge: 11/26/22 Discharge Diagnosis: See problem list Hospital Course: See problem list Labs and Pending Lab Test: Laboratory Tests 11/26/22 06:01: White Blood Count 10.4, Red Blood Count 3.59L, Hemoglobin 11.0L, Hematocrit 34L, Mean Corpuscular Volume 94, Mean Corpuscular Hemoglobin 31, Mean Corpuscular Hemoglobin Concent 33, Red Cell Distribution Width 12.8, Platelet Count 258, Mean Platelet Volume 10.7, Immature Granulocyte % (Auto) 0, Neutrophils (%) (Auto) 62, Lymphocytes (%) (Auto) 28, Monocytes (%) (Auto) 8, Eosinophils (%) (Auto) 1, Basophils (%) (Auto) 0, Neutrophils # (Auto) 6.5, Lymphocytes # (Auto) 2.9, Monocytes # (Auto) 0.8, Eosinophils # (Auto) 0.1, Basophils # (Auto) 0.0, Immature Granulocyte # (Auto) 0.0, Sodium Level 140, Potassium Level 4.4, Chloride Level 107, Carbon Dioxide Level 26, Anion Gap 7, Blood Urea Nitrogen 9, Creatinine 0.54L, Estimat Glomerular Filtration Rate 113, BUN/Creatinine Ratio 17, Glucose Level 89, Calcium Level 8.5, Corrected Calcium 9.1, Magnesium Level 1.9, Total Bilirubin 0.4, Aspartate Amino Transf (AST/SGOT) 10, Alanine Aminotransferase (ALT/SGPT) 12, Alkaline Phosphatase 62, Total Protein 6.1L, Albumin 3.2 Microbiology 11/21/22 MRSA Screen - Final, Complete 11/21/22 Urine Culture - Final, Complete Staphylococcus aureus Proteus mirabilis 11/21/22 Blood Culture - Preliminary, Resulted Home Meds Active Bactrim Ds Tablet (Sulfamethoxazole/Trimethoprim) 1 Each Tablet 1 Ea GT BID WITH MEALS Cephalexin 250 Mg Capsule 500 Mg GT TID Reported Potassium Chloride 20 Meq Tablet.er 20 Meq PEG DAILY Levofloxacin 500 Mg Tablet 500 Mg PEG DAILY FILLED 11-21-2022 TO 11-28-2022 ELEVATED WHITE BLOOD COUNT Hydrocodone-Acetamn 7.5-325/15 (Hydrocodone/Acetaminophen) 7.5 Mg-325 Mg/15 Ml Solution 10 Ml PEG Q6H PRN Stool Softener (Docusate Sodium) 50 Mg/5 Ml Liquid 10 Ml PEG BID Albuterol Sulfate 0.63 Mg/3 Ml Vial.neb 1 Vial PO TID PRN Nystatin 100,000 Unit/Gram Cream..g. 1 Applic TP BID Miralax (Polyethylene Glycol 3350) 17 Gram Powd.pack 17 Gm PEG DAILY PRN Metoclopramide HCl 5 Mg Tablet 5 Mg PEG Q6H Keppra (Levetiracetam) 100 Mg/Ml Solution 7.5 Ml PEG BID Lactulose 10 Gram/15 Ml Solution 30 Ml PEG DAILY Ketoconazole 2 % Shampoo 1 Applic TP ,,, APPLY TO HAIR/SCALP Iprat-Albut 0.5-3(2.5) mg/3 ml (Ipratropium/Albuterol Sulfate) 0.5 Mg-3 Mg (2.5 Mg Base)/3 Ml Ampul.neb 3 Ml PO Q6H PRN Cranberry (Cranberry Fruit) 450 Mg Tablet 450 Mg PEG BID Bisacodyl 10 Mg Supp.rect 10 Mg RC DAILY PRN Baclofen 10 Mg Tablet 10 Mg PEG BID Azelastine HCl 137 Mcg (0.1 %) [place].pump 2 Sprays NSEACH HS Acetaminophen 650 Mg/20.3 Ml Oral.susp 20.3 Ml PEG Q6H PRN Assessment/Pt DC Instructions Follow up via nursing facility Discharge Diet: Tube Feeding Activity as Tolerated: Yes Discharge Physical Examination Allergies: Coded Allergies: No Known Drug Allergies (Unverified , 06/12/21) General Appearance: No Apparent Distress Respiratory: Lungs Clear, Normal Breath Sounds Cardiovascular: Regular Rate, Rhythm Gastrointestinal: Normal Bowel Sounds, Other (ostomy with dark brown liquid ouptut) Extremity: No Pedal Edema Skin: Warm/Dry ADDISON DORAN MD Nov 26, 2022 11:09
[2022-11-26 11:22] VITALS: BP 88/54
== END 2022-11-26 14:00 | DRG 872 ==
LOC: EDUNIT# 10:15 → ER FS 10:17 → ICU 13:24 → 4TH 11-22 15:58
PROVIDERS: ADMIT Internal Medicine; ATTEND Family Medicine
DX: A41.02 Sepsis due to Methicillin resistant Staphylococcus aureus (principal); N30.01 Acute cystitis with hematuria; J96.11 Chronic respiratory failure with hypoxia; A41.59 Other Gram-negative sepsis; M62.49 Contracture of muscle, multiple sites; Z93.0 Tracheostomy status; Z93.1 Gastrostomy status; I69.220 Aphasia following other nontraumatic intracranial hemorrhage; I69.20 Unspecified sequelae of other nontraumatic intracranial hemorrhage; L89.159 Pressure ulcer of sacral region, unspecified stage; Z93.3 Colostomy status
CPT/HCPCS: 36415; 36600; 71045; 80053; 81000; 82805; 82947; 83605; 83735; 83880; 84100; 84484; 85007; 85025; 85027; 85610; 85730; 87040; 87077; 87081; 87088; 87186; 87636; 94760; 94761; 94799

== ENCOUNTER → 2022-12-04 | Outpatient (CLI) | payer MEDICAID ==
[~2022-12-04] MED LIST changes: +ALBU0.63 PO; +ALBU2.5V4 PO; +CEPH250C GT; +DOCU50LI11 PEG; +HYDR118S10 PEG; +LEVO-55 PEG; +POTA-330 PEG; +SULF1TAB38 GT
[2022-12-04 12:29] LABS: BILIRUBIN,URINE NEGATIVE (NEGATIVE); CLARITY,URINE SL CLOUDY; COLOR,URINE YELLOW; GLUCOSE, URINE (UA) NEGATIVE (NEGATIVE); KETONES,URINE NEGATIVE (NEGATIVE); LEUKOCYTE ESTERASE ,URINE 1+ (NEGATIVE); NITRITE,URINE NEGATIVE (NEGATIVE); PROTEIN,URINE TRACE (NEGATIVE)
[2022-12-04 12:31] LABS: HEMOGLOBIN 14.9 g/dL (11.5-16.0); MEAN PLATELET VOLUME 11.2 fL (9.0-12.2); WHITE BLOOD COUNT 13.3 10^3/uL (4.3-11.0)
[2022-12-04 12:42] LABS: BACTERIA,URINE FEW /HPF; WBC,URINE 25-50 /HPF
[2022-12-04 12:44] LABS: BUN/CREATININE RATIO 48; CARBON DIOXIDE 19 MMOL/L (21-32); CHLORIDE 95 MMOL/L (98-107); CREATININE SERUM 0.48 MG/DL (0.60-1.30); GFR ESTIMATED 116; GLUCOSE 131 MG/DL (70-105); SODIUM 131 MMOL/L (135-145)
[2022-12-04 12:45] LABS: ALANINE AMINOTRANSFERASE 17 U/L (0-55); ALBUMIN 4.7 GM/DL (3.2-4.5); ALKALINE PHOSPHATASE 140 U/L (40-136); BILIRUBIN,TOTAL 0.3 MG/DL (0.1-1.0); CALCIUM 10.4 MG/DL (8.5-10.1); TOTAL PROTEIN 8.4 GM/DL (6.4-8.2)
== END ==
PROVIDERS: ATTEND Family Medicine
DX: N30.01 Acute cystitis with hematuria (principal); A41.9 Sepsis, unspecified organism
CPT/HCPCS: 80053; 81000; 85027; 87088

== ENCOUNTER → 2022-12-29 | Outpatient (CLI) | payer MEDICAID ==
[2022-12-29 14:43] LABS: HEMATOCRIT 41 % (35-52); HEMOGLOBIN 13.5 g/dL (11.5-16.0); MEAN CORPUSCULAR HEMOGLOBIN 31 pg (25-34); MEAN CORPUSCULAR HGB CONC 33 g/dL (32-36); MEAN CORPUSCULAR VOLUME 92 fL (80-99); MEAN PLATELET VOLUME 11.7 fL (9.0-12.2); PLATELET COUNT 329 10^3/uL (130-400); WHITE BLOOD COUNT 11.3 10^3/uL (4.3-11.0)
[2022-12-29 14:56] LABS: CALCIUM 9.3 MG/DL (8.5-10.1); CREATININE SERUM 0.41 MG/DL (0.60-1.30); POTASSIUM 3.5 MMOL/L (3.6-5.0)
== END ==
PROVIDERS: ATTEND Family Medicine
DX: J96.10 Chronic respiratory failure, unspecified whether with hypoxia or hypercapnia (principal)
CPT/HCPCS: 80048; 85027

== ENCOUNTER 2023-01-08 18:51 | Inpatient (IN) | payer MEDICAID ==
[~2023-01-08] VITALS: Ht 172.8 cm; Wt 76.6 kg
[~2023-01-08 18:51] MED LIST changes: -OXYB5TAB13 PEG; +OXYB5TAB14 PEG
[2023-01-08] MEDS ORDERED: CEFEPIME INJECTION 1,000 MG in NS (IVPB) 50 ML 50 ML IV STA (19:01)
[2023-01-08] MEDS ORDERED: NS IV 1000 ML 1,000 ML IV STA ×2 (19:01→20:08)
[2023-01-08] MEDS ORDERED: VANCOMYCIN INJECTION 1,000 MG in NS (IVPB) 250 ML 250 ML IV STA (19:01)
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
[2023-01-08 19:13] LABS: BILIRUBIN,URINE NEGATIVE (NEGATIVE); CLARITY,URINE SL CLOUDY; COLOR,URINE YELLOW; GLUCOSE, URINE (UA) NEGATIVE (NEGATIVE); KETONES,URINE NEGATIVE (NEGATIVE); LEUKOCYTE ESTERASE ,URINE 3+ (NEGATIVE); NITRITE,URINE POSITIVE (NEGATIVE); PH,URINE >=9.0 (5-9); PROTEIN,URINE 2+ (NEGATIVE)
[2023-01-08 19:17] LABS: BASOPHILS # (AUTO) 0.1 10^3/uL (0.0-0.1); BASOPHILS % (AUTO) 0 % (0-10); EOSINOPHILS # (AUTO) 0.3 10^3/uL (0.0-0.3); EOSINOPHILS % (AUTO) 2 % (0-10); HEMATOCRIT 38 % (35-52); LYMPHOCYTES # (AUTO) 2.6 10^3/uL (1.0-4.0); LYMPHOCYTES % (AUTO) 18 % (12-44); MEAN CORPUSCULAR HEMOGLOBIN 31 pg (25-34); MEAN CORPUSCULAR HGB CONC 34 g/dL (32-36); MEAN CORPUSCULAR VOLUME 92 fL (80-99); MEAN PLATELET VOLUME 10.4 fL (9.0-12.2); MONOCYTES # (AUTO) 0.9 10^3/uL (0.0-1.0); MONOCYTES % (AUTO) 6 % (0-12); NEUTROPHILS # (AUTO) 10.5 10^3/uL (1.8-7.8); NEUTROPHILS % (AUTO) 73 % (42-75); PLATELET COUNT 391 10^3/uL (130-400); WHITE BLOOD COUNT 14.5 10^3/uL (4.3-11.0)
--- NOTE | 2023-01-08 19:21 | Diagnostic Imaging Report ---
INDICATION: Cough and dyspnea. Single AP view of the chest is obtained with comparison made to study of 11/21/2022. Tracheostomy tube remains in place with tip at the level of thoracic inlet. Catheter is again seen coursing along the right chest. Heart size and pulmonary vascularity are unremarkable. There is no pneumothorax, consolidation or pleural fluid. IMPRESSION: No acute abnormality or significant change. Dictated by: Dictated on workstation # [id number]
[2023-01-08 19:28] LABS: BACTERIA,URINE MODERATE /HPF; SQUAMOUS EPITHELIAL CELL,UR 0-2 /HPF; WBC,URINE 50-100 /HPF
[2023-01-08 19:32] LABS: POTASSIUM 4.2 MMOL/L (3.6-5.0)
[2023-01-08 19:35] LABS: BILIRUBIN,TOTAL 0.4 MG/DL (0.1-1.0); CALCIUM 9.5 MG/DL (8.5-10.1); TOTAL PROTEIN 7.8 GM/DL (6.4-8.2)
[2023-01-08 19:37] LABS: ALBUMIN 4.1 GM/DL (3.2-4.5); CREATININE SERUM 0.38 MG/DL (0.60-1.30)
[2023-01-09] VITALS (7 sets, daily range): BP systolic 77–119; BP diastolic 40–104
[2023-01-09] MEDS ORDERED: RT-Ipratropium/Albuterol NEB 3 ML VIAL INH PRN (01:30)
[2023-01-09] MEDS: NS IV 1000 ML 1,000 ML IV SCH ×4 (03:06→17:08)
[2023-01-09] MEDS: CEFEPIME 1,000 MG/NS 50 ML IVPB IV SCH ×8 (03:06→20:24)
[2023-01-09 05:07] LABS: BASOPHILS # (AUTO) 0.1 10^3/uL (0.0-0.1); BASOPHILS % (AUTO) 0 % (0-10); EOSINOPHILS # (AUTO) 0.3 10^3/uL (0.0-0.3); EOSINOPHILS % (AUTO) 2 % (0-10); HEMATOCRIT 33 % (35-52); LYMPHOCYTES # (AUTO) 1.2 10^3/uL (1.0-4.0); LYMPHOCYTES % (AUTO) 10 % (12-44); MEAN CORPUSCULAR HEMOGLOBIN 31 pg (25-34); MEAN CORPUSCULAR HGB CONC 33 g/dL (32-36); MEAN CORPUSCULAR VOLUME 93 fL (80-99); MEAN PLATELET VOLUME 10.4 fL (9.0-12.2); MONOCYTES # (AUTO) 0.7 10^3/uL (0.0-1.0); MONOCYTES % (AUTO) 6 % (0-12); NEUTROPHILS # (AUTO) 9.2 10^3/uL (1.8-7.8); NEUTROPHILS % (AUTO) 81 % (42-75); PLATELET COUNT 336 10^3/uL (130-400); WHITE BLOOD COUNT 11.4 10^3/uL (4.3-11.0)
[2023-01-09 05:25] LABS: ALBUMIN 3.2 GM/DL (3.2-4.5); POTASSIUM 4.1 MMOL/L (3.6-5.0)
[2023-01-09 05:27] LABS: CALCIUM 8.7 MG/DL (8.5-10.1)
[2023-01-09 05:28] LABS: TOTAL PROTEIN 6.4 GM/DL (6.4-8.2)
[2023-01-09 05:30] LABS: BILIRUBIN,TOTAL 0.7 MG/DL (0.1-1.0)
[2023-01-09 05:31] LABS: CREATININE SERUM 0.51 MG/DL (0.60-1.30)
--- NOTE | 2023-01-09 05:59 | History & Physical ---
KATALINA PEREZ MD, RESIDENT 01/09/23 0559: HPI History of Present Illness: CC: Shortness of breath Patient is a 47-year-old female who initially presented by EMS from [facility]. Of note she is aphasic at baseline and thus much of the history was obtained from the [facility] report and ED note. 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 She also has a trach in place, feeding tube, colostomy and suprapubic indwelling catheter. Per the ED note it appeared that the penitentiary noted that patient was having more trouble breathing and had concerns that she could be septic and thus had sent her for further evaluation. In the ED she was noted to be tachycardic with soft blood pressures, had leukocytosis. Urine sample obtained from the suprapubic catheter was notable for a UTI and thus she was admitted for further management. She received a dose of cefepime and vancomycin in the ED due to history of prior MRSA infection. Source: other (ED notes reviewed) Exam Limitations: clinical condition, physical impairment Date seen by provider: Jan 09, 2023 Time Seen by Provider: 08:20 Attending Physician Bentley Khan MD PCP Admitting Physician: Romulo Raya MD Attending Physician: Romulo Raya MD Consult Date of Admission Jan 08, 2023 at 23:23 Home Medications Home Medications Reviewed patient Home Medication Reconciliation performed by pharmacy medication reconciliations safe technician and/or nursing. Patients Allergies have been reviewed. Allergies Coded Allergies: No Known Drug Allergies (Unverified , 06/12/21) KEC-Mfgdib-Eovdri Hx Patient Social History Alcohol Use?: No Immunizations Up To Date Influenza Vaccine Up-to-Date: No; Not Current First/Initial COVID19 Vaccinat: 2020 Second COVID19 Vaccination Paul: 2020 Third COVID19 Vaccination Date: 2020 Family Medical History Significant Family History: Cancer Review of Systems ([facility]) Constitutional: other (unable to obtain due to aphasia) Other Unable to complete as patient is aphasic Reviewed Test Results Reviewed Test Results Lab Laboratory Tests 01/08/23 19:00: White Blood Count 14.5H, Red Blood Count 4.17, Hemoglobin 13.0, Hematocrit 38, Mean Corpuscular Volume 92, Mean Corpuscular Hemoglobin 31, Mean Corpuscular Hemoglobin Concent 34, Red Cell Distribution Width 13.1, Platelet Count 391, Mean Platelet Volume 10.4, Immature Granulocyte % (Auto) 1, Neutrophils (%) (Auto) 73, Lymphocytes (%) (Auto) 18, Monocytes (%) (Auto) 6, Eosinophils (%) (Auto) 2, Basophils (%) (Auto) 0, Neutrophils # (Auto) 10.5H, Lymphocytes # (Auto) 2.6, Monocytes # (Auto) 0.9, Eosinophils # (Auto) 0.3, Basophils # (Auto) 0.1, Immature Granulocyte # (Auto) 0.1, Urine Color YELLOW, Urine Clarity SL CLOUDY, Urine pH >=9.0, Urine Specific [place] <=1.005, Urine Protein 2+H, Urine Glucose (UA) NEGATIVE, Urine Ketones NEGATIVE, Urine Nitrite POSITIVEH, Urine Bilirubin NEGATIVE, Urine Urobilinogen 0.2, Urine Leukocyte Esterase 3+H, Urine RBC (Auto) 2+H, Urine RBC 10-25H, Urine WBC 50-100H, Urine Squamous Epithelial Cells 0-2, Urine Crystals NONE, Urine Bacteria MODERATEH, Urine Casts NONE, Urine Mucus MODERATEH, Urine Culture Indicated YES, Sodium Level 133L, Potassium Level 4.2, Chloride Level 94L, Carbon Dioxide Level 25, Anion Gap 14, Blood Urea Nitrogen 16, Creatinine 0.38L, Estimat Glomerular Filtration Rate 123, BUN/Creatinine Ratio 42, Glucose Level 78, Lactic Acid Level 1.82, Calcium Level 9.5, Corrected Calcium 9.4, Total Bilirubin 0.4, Aspartate Amino Transf (AST/SGOT) 20, Alanine Aminotransferase (ALT/SGPT) 21, Alkaline Phosphatase 127, C-Reactive Protein 1.54H, Total Protein 7.8, Albumin 4.1, Influenza Type A (RT- PCR) Not Detected, Influenza Type B (RT-PCR) Not Detected, SARS-CoV-2 RNA (RT- PCR) Not Detected 01/09/23 04:56: White Blood Count 11.4H, Red Blood Count 3.56L, Hemoglobin 11.0L, Hematocrit 33L , Mean Corpuscular Volume 93, Mean Corpuscular Hemoglobin 31, Mean Corpuscular Hemoglobin Concent 33, Red Cell Distribution Width 13.2, Platelet Count 336, Mean Platelet Volume 10.4, Immature Granulocyte % (Auto) 1, Neutrophils (%) (Auto) 81H, Lymphocytes (%) (Auto) 10L, Monocytes (%) (Auto) 6, Eosinophils (%) (Auto) 2, Basophils (%) (Auto) 0, Neutrophils # (Auto) 9.2H, Lymphocytes # (Auto) 1.2, Monocytes # (Auto) 0.7, Eosinophils # (Auto) 0.3, Basophils # (Auto) 0.1, Immature Granulocyte # (Auto) 0.1, Sodium Level 136, Potassium Level 4.1, Chloride Level 105, Carbon Dioxide Level 22, Anion Gap 9, Blood Urea Nitrogen 10, Creatinine 0.51L, Estimat Glomerular Filtration Rate 114, BUN/Creatinine Ratio 20, Glucose Level 87, Calcium Level 8.7, Corrected Calcium 9.3, Total Bilirubin 0.7, Aspartate Amino Transf (AST/SGOT) 12, Alanine Aminotransferase (ALT/SGPT) 17, Alkaline Phosphatase 88, Total Protein 6.4, Albumin 3.2 Radiology Chest x-ray (01/08/2023): IMPRESSION: No acute abnormality or significant change. Physical Exam-([facility]) Physical Exam Vital Signs VS - Last 72 Hours, by Label 01/08/23 01/08/23 01/08/23 01/09/23 19:00 19:00 23:25 01:00 Temp 38.2 Pulse 112 85 Resp 22 B/P (MAP) 98/62 (74) Pulse Ox 98 98 O2 Delivery Room Air Room Air Room Air 01/09/23 01/09/23 01/09/23 01/09/23 01:17 04:03 07:10 07:51 Temp 38.2 36.4 37.1 Pulse 112 102 94 102 Resp 19 18 B/P (MAP) 99/68 (78) 98/62 (74) Pulse Ox 98 97 97 O2 Delivery Room Air Room Air FiO2 21 01/09/23 08:00 Pulse Ox 97 O2 Delivery Room Air Capillary Refill : Less Than 3 Seconds General Appearance: no apparent distress, obese HEENT: normal ENT inspection Neck: supple, normal inspection, other (Tracheostomy in place) Respiratory: lungs clear, normal breath sounds, no respiratory distress, no accessory muscle use Cardiovascular: regular rate, rhythm, no edema, no murmur Gastrointestinal: normal bowel sounds, non tender, soft, other (Colostomy pink with stool in colostomy bag, feeding tube in place, no erythema or ulcerations noted around the feeding tube) Extremities: no pedal edema Neurologic/Psychiatric: aphasia (At baseline) Skin: other (Face appears quite pink) Assessment/Plan Assessment/Plan Admission Status: Inpatient Order (span 2 midnights) Reason for Inpatient Admission: Urosepsis (1) Catheter-associated urinary tract infection Status: Acute Assessment & Plan: Patient likely has a urinary tract infection secondary to chronic indwelling suprapubic catheter. No other sources of infection noted as patient had a negative chest x-ray. Exam otherwise unremarkable. She did meet sepsis criteria with tachycardia and leukocytosis and thus is status post 1 L of fluids as well as cefepime and vancomycin in the ED. Of note patient has a history of MRSA infections and thus requires MRSA coverage. Leukocytosis this a.m. is improving from 14.5-11.5. Patient still mildly tachycardic. Plan: Continue cefepime and vancomycin Follow-up urine culture Trend daily CBCs Qualifiers: Qualified Codes: T83.510A - Infection and inflammatory reaction due to cystostomy catheter, initial encounter; N39.0 - Urinary tract infection, site not specified (2) Sepsis Status: Acute Assessment & Plan: See problem above Qualifiers: Qualified Codes: A41.9 - Sepsis, unspecified organism (3) Tracheostomy care Status: Chronic Assessment & Plan: Continue routine tracheostomy care (4) Uses feeding tube Status: Chronic Assessment & Plan: Will discuss with family what patient's feeding tube regimen is. We will also consult nutrition for assistance (5) Colostomy care Status: Chronic Assessment & Plan: Continue routine colostomy care. ROMULO RAYA MD 01/09/23 1458: Home Medications Allergies Coded Allergies: No Known Drug Allergies (Unverified , 06/12/21) Supervisory-Addendum Brief Supervisory Addendum I personally performed the aguilar portions of the visit, discussed case with resident and concur with resident documentation of history, physical exam, ass essment and treatment plan unless otherwise noted. Waiting on culture and sensitivities due to recurrent UTIs then will be ok to d/c back to facility KATALINA PEREZ MD, RESIDENT Jan 09, 2023 05:59 ROMULO RAYA MD Jan 09, 2023 14:58
[2023-01-09] MEDS ORDERED: VANCOMYCIN INJECTION 0.1 MG in NS (IVPB) 250 ML 250 ML IV SCH (08:15)
[2023-01-09] MEDS: VANCOMYCIN 1 GM/NS 250 ML IVPB IV SCH ×4 (09:27→21:10)
[2023-01-09] MEDS ORDERED: ACHD5005 PEG (12:56)
[2023-01-09] MEDS ORDERED: ACETAMINOPHEN 500 MG TABLET PO PRN (15:15)
[2023-01-09] MEDS ORDERED: ACETAMINOPHEN 325 MG TABLET PO PRN (15:15)
[2023-01-09] MEDS ORDERED: RT-Ipratropium/Albuterol NEB 3 ML VIAL IH PRN (15:30)
[2023-01-09] MEDS ORDERED: BISACODYL 10 MG SUPPOSITORY RC PRN (15:30)
[2023-01-09] MEDS: BACLOFEN 10 MG TABLET PEG SCH ×2 (15:48→21:10)
[2023-01-09] MEDS ORDERED: HYDROcodone/ACETAMINOPHEN 5 MG/325 MG TABLET PEG PRN (16:00)
[2023-01-09] MEDS ORDERED: NS IV 500 ML 500 ML IV SCH (16:45)
[2023-01-09] MEDS: METOCLOPRAMIDE 5 MG TABLET PEG SCH ×2 (17:08→21:10)
[2023-01-09] MEDS ORDERED: BACLOFEN 10 MG TABLET PEG SCH (21:00)
[2023-01-09] MEDS: LevETIRAcetam 500 MG/ 5 ML UDC ORAL SOLN PEG SCH (21:17)
[2023-01-09] MEDS: DOCUSATE SODIUM 100 MG/10 ML UDC ORAL SOLN PEG SCH (21:17)
[2023-01-10] VITALS (8 sets, daily range): BP systolic 87–126; BP diastolic 43–98
[2023-01-10] MEDS: NS IV 1000 ML 1,000 ML IV SCH ×3 (01:14→18:12)
[2023-01-10] MEDS: CEFEPIME 1,000 MG/NS 50 ML IVPB IV SCH ×8 (01:14→21:38)
[2023-01-10] MEDS: METOCLOPRAMIDE 5 MG TABLET PEG SCH ×4 (04:57→23:07)
[2023-01-10] MEDS: ACETAMINOPHEN 325 MG TABLET PO PRN (04:58)
--- NOTE | 2023-01-10 06:07 | Progress Note ---
KATALINA PEREZ MD, RESIDENT 01/10/23 0607: Subjective Subjective/Events-last exam Patient is aphasic and otherwise does not interact much on exam which is her baseline. Unable to obtain subjective and review of systems. Clinically patient appearing better than yesterday, no concerns reported by nurse this morning. Yesterday afternoon, patient was noted to have a very red face, tachycardia, temp to 100.9 and was moaning. She was given a dose of Tylenol with improvement in her symptoms. Today she appears quite comfortable. Review of Systems Unable to obtain as patient is aphasic Focused Exam Lactate Level 01/08/23 19:00: Lactic Acid Level 1.82 Objective Exam Last Set of Vital Signs Vital Signs Date Time Temp Pulse Resp B/P (MAP) Pulse Ox O2 Delivery O2 Flow Rate FiO2 01/10/23 04:58 37.7 01/10/23 04:00 89 15 110/55 (73) 96 Room Air 01/09/23 15:17 0.00 01/09/23 01:17 21 Capillary Refill : Less Than 3 Seconds I&O Intake and Output 01/10/23 00:00 Intake Total 1617 ml Output Total 2300 ml Balance -683 ml Intake Oral 0 ml IV Total 500 ml Tube Feeding 637 ml Enteral Flush 320 ml Other 160 ml Output Urine Total 1400 ml Stool Total 900 ml General: No Acute Distress HEENT: Other (Face pink, but unchanged from yesterday morning) Neck: Supple, Other (Tracheostomy in place) Lungs: Clear to Auscultation, Normal Air Movement Heart: Regular Rate, No Murmurs Abdomen: Normal Bowel Sounds, Soft, No Tenderness, Other (Colostomy and feeding tube in place) Extremities: No Edema Skin: No Rashes Results/Procedures Lab Laboratory Tests 01/10/23 05:57: Glucometer 88 Microbiology 01/08/23 Blood Culture - Preliminary, Resulted 01/08/23 Urine Culture - Preliminary, Resulted Culture In Progress Radiology Chest x-ray (01/08/2023): IMPRESSION: No acute abnormality or significant change. Assessment/Plan Assessment/Plan Admission Status: Inpatient Order (span 2 midnights) (1) Catheter-associated urinary tract infection Status: Acute Assessment & Plan: Urinary tract infection secondary to chronic indwelling suprapubic catheter. Echocardiogram solved today, patient appears quite comfortable. Leukocytosis resolved this AM. Plan: Continue cefepime and vancomycin Follow-up urine culture Follow-up blood cultures, showing no growth to date Follow-up sputum culture Trend daily CBCs Qualifiers: Qualified Codes: T83.510A - Infection and inflammatory reaction due to cystostomy catheter, initial encounter; N39.0 - Urinary tract infection, site not specified (2) Sepsis Status: Resolved Assessment & Plan: See problem above Qualifiers: Qualified Codes: A41.9 - Sepsis, unspecified organism (3) Tracheostomy care Status: Chronic Assessment & Plan: Continue routine tracheostomy care (4) Uses feeding tube Status: Chronic Assessment & Plan: Will discuss with family what patient's feeding tube regimen is. We will also consult nutrition for assistance (5) Colostomy care Status: Chronic Assessment & Plan: Continue routine colostomy care. (6) Hypokalemia Status: Acute Assessment & Plan: Noted to have potassium to 2.5 today. Plan: Giving 80 mEq of potassium IV We will repeat BMP at 1630 Magnesium level was normal ROMULO RAYA MD 01/10/23 1058: Supervisory-Addendum Brief Supervisory Addendum I personally performed the aguilar portions of the visit, discussed case with resident and concur with resident documentation of history, physical exam, assessment and treatment plan unless otherwise noted. Agree with potassium replacement Awaiting culture results KATALINA PEREZ MD, RESIDENT Jan 10, 2023 06:07 ROMULO RAYA MD Jan 10, 2023 10:58
[2023-01-10 06:24] LABS: BASOPHILS % (AUTO) 0 % (0-10); EOSINOPHILS # (AUTO) 0.2 10^3/uL (0.0-0.3); EOSINOPHILS % (AUTO) 2 % (0-10); HEMATOCRIT 30 % (35-52); LYMPHOCYTES # (AUTO) 1.6 10^3/uL (1.0-4.0); LYMPHOCYTES % (AUTO) 15 % (12-44); MEAN CORPUSCULAR HEMOGLOBIN 31 pg (25-34); MEAN CORPUSCULAR HGB CONC 33 g/dL (32-36); MEAN CORPUSCULAR VOLUME 94 fL (80-99); MEAN PLATELET VOLUME 10.4 fL (9.0-12.2); MONOCYTES # (AUTO) 0.8 10^3/uL (0.0-1.0); MONOCYTES % (AUTO) 7 % (0-12); NEUTROPHILS % (AUTO) 76 % (42-75); PLATELET COUNT 248 10^3/uL (130-400); WHITE BLOOD COUNT 10.6 10^3/uL (4.3-11.0)
[2023-01-10 06:41] LABS: BILIRUBIN,TOTAL 0.4 MG/DL (0.1-1.0); CREATININE SERUM 0.48 MG/DL (0.60-1.30); TOTAL PROTEIN 5.8 GM/DL (6.4-8.2)
[2023-01-10 06:52] LABS: POTASSIUM 2.5 MMOL/L (3.6-5.0)
[2023-01-10] MEDS ORDERED: TROUGH ORDER-PHARMACY XX NR (07:30)
[2023-01-10] MEDS: POTASSIUM CL 10MEQ/50ML IVPB 50 ML IV SCH ×6 (07:44→15:12)
[2023-01-10 08:09] LABS: MAGNESIUM 1.6 MG/DL (1.6-2.4)
[2023-01-10] MEDS: BACLOFEN 10 MG TABLET PEG SCH ×2 (08:10→21:39)
[2023-01-10] MEDS: LevETIRAcetam 500 MG/ 5 ML UDC ORAL SOLN PEG SCH ×2 (08:11→21:39)
[2023-01-10] MEDS: DOCUSATE SODIUM 100 MG/10 ML UDC ORAL SOLN PEG SCH ×2 (08:11→21:39)
[2023-01-10 08:15] LABS: VANCOMYCIN,TROUGH 12.7 UG/ML (10.0-20.0)
[2023-01-10] MEDS: VANCOMYCIN 1 GM/NS 250 ML IVPB IV SCH ×4 (09:25→21:39)
[2023-01-10 17:21] LABS: POTASSIUM 3.2 MMOL/L (3.6-5.0)
[2023-01-10 17:26] LABS: CREATININE SERUM 0.47 MG/DL (0.60-1.30)
--- NOTE | 2023-01-10 23:22 | Tele-ICU Consult ---
Progress Note (Tele-ICU Physician, consultation) Available chart/ vitals / labs / Images reviewed H&P is from ER notes Patient's information available about PMH, allergy reviewed in EMR. ROS as per chart and RN report Video assessment done using teleICU camera. Patient is in NAD, aerosolized TC 6L, hypothermic Consultants: N/A Hospital course: 47 yo F aphasic patient history of TBI, bedbound, chronic respiratory failure on trach collar admitted for sepsis, UTI from [facility]. A/P IV abx, IVF, cultures, sepsis protocol rec'd Lines: PIV Perez: Suprapubic OG: PEG Nutrition: N/A Analgesia: N/A VTE Prophylaxis: Per primary Stress Ulcer Prophylaxis: N/A Plans in collaboration with bedside consultants and Primary MD. RN to reach out if any questions or concerns _12_ min of critical care time devoted to this patient today, required to treat and/or prevent further deterioration of critical care condition. Focused Exam Lactate Level 01/08/23 19:00: Lactic Acid Level 1.82 Height, Weight, BMI Height: '" Weight: lbs. oz. kg; BMI Method: PRATEEK ORTEGA MD Jan 10, 2023 23:22
[2023-01-11] VITALS (7 sets, daily range): BP systolic 91–122; BP diastolic 54–81
[2023-01-11] MEDS: NS IV 1000 ML 1,000 ML IV SCH ×5 (01:44→23:25)
[2023-01-11] MEDS: MAGNESIUM 1 GM/100 ML IVPB 100 ML IV SCH ×3 (01:44→06:34)
[2023-01-11] MEDS ORDERED: NOREPINEPHRINE INJECTION 16 MG in NS (IVPB) 250 ML 234 ML IV SCH (01:45)
[2023-01-11] MEDS ORDERED: NOREPINEPHRINE 8 MG/250 ML 250 ML IV ONE (01:47)
[2023-01-11] MEDS: CEFEPIME 1,000 MG/NS 50 ML IVPB IV SCH ×8 (02:00→19:36)
[2023-01-11] MEDS: NOREPINEPHRINE 8 MG/250 ML 250 ML IV SCH ×2 (02:29→20:27)
[2023-01-11] MEDS ORDERED: NOREPINEPHRINE 8 MG/250 ML 250 ML IV SCH (05:00)
[2023-01-11] MEDS ORDERED: NS IV 500 ML 500 ML IV PRN (05:00)
[2023-01-11 05:21] LABS: BASOPHILS # (AUTO) 0.1 10^3/uL (0.0-0.1); BASOPHILS % (AUTO) 1 % (0-10); EOSINOPHILS # (AUTO) 0.3 10^3/uL (0.0-0.3); EOSINOPHILS % (AUTO) 3 % (0-10); HEMATOCRIT 28 % (35-52); HEMOGLOBIN 9.3 g/dL (11.5-16.0); LYMPHOCYTES # (AUTO) 2.2 10^3/uL (1.0-4.0); LYMPHOCYTES % (AUTO) 22 % (12-44); MEAN CORPUSCULAR HEMOGLOBIN 31 pg (25-34); MEAN CORPUSCULAR HGB CONC 33 g/dL (32-36); MEAN CORPUSCULAR VOLUME 94 fL (80-99); MEAN PLATELET VOLUME 10.5 fL (9.0-12.2); MONOCYTES # (AUTO) 0.8 10^3/uL (0.0-1.0); MONOCYTES % (AUTO) 8 % (0-12); NEUTROPHILS # (AUTO) 6.8 10^3/uL (1.8-7.8); NEUTROPHILS % (AUTO) 67 % (42-75); PLATELET COUNT 288 10^3/uL (130-400); WHITE BLOOD COUNT 10.2 10^3/uL (4.3-11.0)
--- NOTE | 2023-01-11 05:33 | Progress Note ---
Subjective Review of Systems Unable to obtain as patient is aphasic Focused Exam Lactate Level 01/08/23 19:00: Lactic Acid Level 1.82 01/11/23 05:00: Lactic Acid Level 1.02 Lactic Acid Level Laboratory Tests Test 01/11/23 05:00 Lactic Acid Level 1.02 MMOL/L (0.50-2.00) Objective Exam Last Set of Vital Signs Vital Signs Date Time Temp Pulse Resp B/P (MAP) Pulse Ox O2 Delivery O2 Flow Rate FiO2 01/11/23 04:44 72 01/11/23 01:41 98 Trach Collar 6.00 50 01/11/23 00:00 26 100/63 (75) 01/10/23 18:13 36.0 Capillary Refill : Less Than 3 Seconds I&O Intake and Output 01/11/23 00:00 Intake Total 2774 ml Output Total 2825 ml Balance -51 ml Intake Oral 0 ml IV Total 700 ml Tube Feeding 954 ml Enteral Flush 480 ml Other 640 ml Output Urine Total 2100 ml Stool Total 725 ml Results/Procedures Lab Laboratory Tests 01/10/23 05:57: Glucometer 88 01/10/23 06:15: White Blood Count 10.6, Red Blood Count 3.19L, Hemoglobin 10.0L, Hematocrit 30L, Mean Corpuscular Volume 94, Mean Corpuscular Hemoglobin 31, Mean Corpuscular Hemoglobin Concent 33, Red Cell Distribution Width 13.3, Platelet Count 248, Mean Platelet Volume 10.4, Immature Granulocyte % (Auto) 0, Neutrophils (%) (Auto) 76H, Lymphocytes (%) (Auto) 15, Monocytes (%) (Auto) 7, Eosinophils (%) (Auto) 2, Basophils (%) (Auto) 0, Neutrophils # (Auto) 8.0H, Lymphocytes # (Auto) 1.6, Monocytes # (Auto) 0.8, Eosinophils # (Auto) 0.2, Basophils # (Auto) 0.0, Immature Granulocyte # (Auto) 0.0, Sodium Level 137, Potassium Level 2.5*L, Chloride Level 107, Carbon Dioxide Level 19L, Anion Gap 11, Blood Urea Nitrogen 4L, Creatinine 0.48L, Estimat Glomerular Filtration Rate 116, BUN/Creatinine Ratio 8, Glucose Level 90, Calcium Level 8.0L, Corrected Calcium 8.8, Total Bilirubin 0.4, Aspartate Amino Transf (AST/SGOT) 18, Alanine Aminotransferase (ALT/SGPT) 16, Alkaline Phosphatase 76, Total Protein 5.8L, Albumin 3.0L 01/10/23 07:35: Magnesium Level 1.6, Vancomycin Level Trough 12.7 01/10/23 17:00: Sodium Level 138, Potassium Level 3.2L, Chloride Level 110H, Carbon Dioxide Level 21, Anion Gap 7, Blood Urea Nitrogen 4L, Creatinine 0.47L, Estimat Glomerular Filtration Rate 117, BUN/Creatinine Ratio 9, Glucose Level 106H, Calcium Level 8.0L 01/11/23 05:00: Lactic Acid Level 1.02 Microbiology 01/08/23 Blood Culture - Preliminary, Resulted 01/08/23 Urine Culture - Preliminary, Resulted Proteus mirabilis Radiology Chest x-ray (01/08/2023): IMPRESSION: No acute abnormality or significant change. Assessment/Plan Assessment/Plan (1) Catheter-associated urinary tract infection Status: Acute Assessment & Plan: Urinary tract infection secondary to chronic indwelling suprapubic catheter. Echocardiogram solved today, patient appears quite comfortable. Leukocytosis resolved this AM. Plan: Continue cefepime and vancomycin Follow-up urine culture Follow-up blood cultures, showing no growth to date Follow-up sputum culture Trend daily CBCs Qualifiers: Qualified Codes: T83.510A - Infection and inflammatory reaction due to cystostomy catheter, initial encounter; N39.0 - Urinary tract infection, site not specified (2) Sepsis Status: Resolved Assessment & Plan: See problem above Qualifiers: Qualified Codes: A41.9 - Sepsis, unspecified organism (3) Tracheostomy care Status: Chronic Assessment & Plan: Continue routine tracheostomy care (4) Uses feeding tube Status: Chronic Assessment & Plan: Will discuss with family what patient's feeding tube regimen is. We will also consult nutrition for assistance (5) Colostomy care Status: Chronic Assessment & Plan: Continue routine colostomy care. (6) Hypokalemia Status: Acute Assessment & Plan: Noted to have potassium to 2.5 today. Plan: Giving 80 mEq of potassium IV We will repeat BMP at 1630 Magnesium level was normal KATALINA PEREZ MD, RESIDENT Jan 11, 2023 05:33
[2023-01-11 05:38] LABS: ALBUMIN 2.8 GM/DL (3.2-4.5); BILIRUBIN,TOTAL 0.3 MG/DL (0.1-1.0); CALCIUM 7.9 MG/DL (8.5-10.1); CREATININE SERUM 0.5 MG/DL (0.60-1.30); POTASSIUM 2.8 MMOL/L (3.6-5.0); TOTAL PROTEIN 5.4 GM/DL (6.4-8.2)
[2023-01-11] MEDS: METOCLOPRAMIDE 5 MG TABLET PEG SCH (06:24)
[2023-01-11] MEDS: POTASSIUM CHLORIDE 20 MEQ TABLET PO SCH (06:24)
[2023-01-11] MEDS: POTASSIUM CL 10MEQ/50ML IVPB 50 ML IV SCH ×7 (06:24→12:24)
[2023-01-11] MEDS: VANCOMYCIN 1 GM/NS 250 ML IVPB IV SCH ×4 (08:16→20:36)
[2023-01-11] MEDS: LevETIRAcetam 500 MG/ 5 ML UDC ORAL SOLN PEG SCH ×2 (08:17→21:10)
[2023-01-11] MEDS: BACLOFEN 10 MG TABLET PEG SCH ×2 (08:17→21:10)
--- NOTE | 2023-01-11 08:32 | Tele-ICU Progress Note ---
Progress Note video rounds completed 47 y/o female with hx of TBI and has trach and suprapubic catheter. Transferred from [place] for SOB and sepsis. Urine culture groing Leslee. [place]. 03/19 BC postive for staph epi Being treated with Cefipime and Vancomycin WBC improving PE: HR: 74 NSR BP: 95/61 O2 sat: 95% IMP: urosepsis PLAN: contine cefipime Consider DC vanc Adding lovenox for DVT px I am remotely monitoring this patient from another state. I am unable to do the bedside exam, and history/physical and pertinent information is taken from other notes in the computer and bedside staff. Time spent in review 20 minutes Focused Exam Lactate Level 01/08/23 19:00: Lactic Acid Level 1.82 01/11/23 05:00: Lactic Acid Level 1.02 Height, Weight, BMI Height: '" Weight: lbs. oz. kg; BMI Method: Lactic Acid Level Laboratory Tests Test 01/11/23 05:00 Lactic Acid Level 1.02 MMOL/L (0.50-2.00) Labs Laboratory Tests 01/10/23 17:00 01/11/23 05:00 Results Results/Procedures Labs Laboratory Tests 01/10/23 06:15 01/10/23 17:00 01/11/23 05:00 Patient resulted labs reviewed. Results Labs Labs Laboratory Tests 01/10/23 17:00: Sodium Level 138, Potassium Level 3.2L, Chloride Level 110H, Carbon Dioxide Level 21, Anion Gap 7, Blood Urea Nitrogen 4L, Creatinine 0.47L, Estimat Glomerular Filtration Rate 117, BUN/Creatinine Ratio 9, Glucose Level 106H, Calcium Level 8.0L 01/11/23 05:00: Sodium Level 139, Potassium Level 2.8L, Chloride Level 110H, Carbon Dioxide Level 20L, Anion Gap 9, Blood Urea Nitrogen 3L, Creatinine 0.50L, Estimat Glomerular Filtration Rate 115, BUN/Creatinine Ratio 6, Glucose Level 108H, Calcium Level 7.9L, White Blood Count 10.2, Red Blood Count 3.02L, Hemoglobin 9.3L, Hematocrit 28L, Mean Corpuscular Volume 94, Mean Corpuscular Hemoglobin 31, Mean Corpuscular Hemoglobin Concent 33, Red Cell Distribution Width 13.3, Platelet Count 288, Mean Platelet Volume 10.5, Immature Granulocyte % (Auto) 0, Neutrophils (%) (Auto) 67, Lymphocytes (%) (Auto) 22, Monocytes (%) (Auto) 8, Eosinophils (%) (Auto) 3, Basophils (%) (Auto) 1, Neutrophils # (Auto) 6.8, Lymphocytes # (Auto) 2.2, Monocytes # (Auto) 0.8, Eosinophils # (Auto) 0.3, Basophils # (Auto) 0.1, Immature Granulocyte # (Auto) 0.0, Lactic Acid Level 1.02, Corrected Calcium 8.9, Total Bilirubin 0.3, Aspartate Amino Transf (AST/SGOT) 15, Alanine Aminotransferase (ALT/SGPT) 16, Alkaline Phosphatase 68, Total Protein 5.4L, Albumin 2.8L Microbiology 01/08/23 Blood Culture - Preliminary, Resulted 01/08/23 Urine Culture - Preliminary, Resulted Proteus mirabilis TED WILLIAM MD Jan 11, 2023 08:31
--- NOTE | 2023-01-11 08:58 | Diagnostic Imaging Report ---
EXAM: CHEST 1 VIEW, AP/PA ONLY INDICATION: Respiratory failure. COMPARISON: 01/08/2023. FINDINGS: Tracheostomy tube overlying the airway. Normal heart size and central pulmonary vascularity. No focal pulmonary opacity. No pleural effusion or pneumothorax. Right ventriculoperitoneal shunt tubing traversing the right hemithorax. IMPRESSION: No significant interval change or acute findings. Dictated by: Dictated on workstation # [id number]
--- NOTE | 2023-01-11 09:04 | Progress Note ---
KATALINA PEREZ MD, RESIDENT 01/11/23 0904: Subjective HPI/CC On Admission Date Seen by Provider: Jan 11, 2023 Time Seen by Provider: 06:15 Subjective/Events-last exam Patient was moved to the ICU yesterday due to hypotension requiring Levophed that was started around 230 this morning. She also had an episode of mucous plugging yesterday that required suctioning and bagging given that her saturati ons dropped to 70. Overnight nurse noted that patient was continuing to have episodes of desaturation improving with suctioning however the substance they were suctioning appeared to be feeds. Feeds were decreased and patient seem to be improving with this. There is concern for aspiration however. Otherwise looks comfortable this AM. Review of Systems Unable to obtain as patient is aphasic Focused Exam Lactate Level 01/08/23 19:00: Lactic Acid Level 1.82 01/11/23 05:00: Lactic Acid Level 1.02 Lactic Acid Level Laboratory Tests Test 01/11/23 05:00 Lactic Acid Level 1.02 MMOL/L (0.50-2.00) Objective Exam Vital Signs Vital Signs Date Time Temp Pulse Resp B/P (MAP) Pulse Ox O2 Delivery O2 Flow Rate FiO2 01/11/23 08:23 78 95/61 01/11/23 08:00 26 98 Trach Collar 8.00 01/11/23 07:42 36.0 01/11/23 06:30 35 Capillary Refill : Less Than 3 Seconds General Appearance: No Apparent Distress HEENT: PERRL/EOMI Neck: Normal Inspection, Other (Tracheostomy in place) Respiratory: Chest Non Tender, Lungs Clear, Normal Breath Sounds, No Accessory Muscle Use, No Respiratory Distress Cardiovascular: Regular Rate, Rhythm, No Edema, No Murmur Gastrointestinal: Normal Bowel Sounds, Non Tender, Soft, Other (Colostomy in place, feeding tube in place) Extremity: No Pedal Edema Skin: Cool Results/Procedures Lab Laboratory Tests 01/10/23 17:00 01/11/23 05:00 Patient resulted labs reviewed. Assessment/Plan Assessment and Plan Assess & Plan/Chief Complaint Patient is a 47-year-old female who was admitted for urinary tract infection. Is currently requiring Levophed for hypotension and ICU status. Diagnosis/Problems Diagnosis/Problems (1) Catheter-associated urinary tract infection Status: Acute Assessment & Plan: Urinary tract infection secondary to chronic indwelling suprapubic catheter. Patient appears quite comfortable. Plan: Continue cefepime and vancomycin Follow-up urine culture, growing Proteus mirabilis so far. Susceptibilities pending. Follow-up blood cultures, showing no growth to date. Showing 1 bottle of coag negative staph however likely a contaminant. Follow-up sputum culture Trend daily CBCs Qualifiers: Qualified Codes: T83.510A - Infection and inflammatory reaction due to cystostomy catheter, initial encounter; N39.0 - Urinary tract infection, site not specified (2) Hypotension Status: Chronic Assessment & Plan: Patient has chronic hypotension as noted by at bedside. It appears that her blood pressures typically run in the 90s over 40s to 50s. However she did drop overnight and required Levophed. Plan: Continue Levophed for blood pressures, wean as tolerated (3) Tracheostomy care Status: Chronic Assessment & Plan: Continue routine tracheostomy care (4) Uses feeding tube Status: Chronic Assessment & Plan: Decrease feeding tube rate yesterday due to aspiration concerns. Chest x-ray was obtained due to concern for aspiration and was negative this AM. Continue feeds per nutrition recommendations at a low rate (5) Colostomy care Status: Chronic Assessment & Plan: Continue routine colostomy care. (6) Hypokalemia Status: Acute Assessment & Plan: Noted to have potassium to 2.8 today. Plan: Replete per protocol JOCELINE GONZALEZ DO 01/11/23 1700: Subjective Subjective/Events-last exam Patient was transferred to ICU due to hypotension Patient and chronic semivegetative state Reviewed meds and labs Chronic aspiration Objective Exam General Appearance: No Apparent Distress, WD/WN, Chronically ill Respiratory: Crackles, Decreased Breath Sounds Assessment/Plan Assessment and Plan Assess & Plan/Chief Complaint ICU Hypertension management Poor prognosis KATALINA PEREZ MD, RESIDENT Jan 11, 2023 09:04 JOCELINE GONZALEZ DO Jan 11, 2023 17:00
[2023-01-11] MEDS: DOCUSATE SODIUM 100 MG/10 ML UDC ORAL SOLN PEG SCH ×2 (11:01→21:10)
[2023-01-11] MEDS: METOCLOPRAMIDE 10 MG/10 ML PEG SCH ×3 (11:01→21:10)
[2023-01-11] MEDS: ENOXAPARIN 40 MG/0.4 ML SYRINGE SC SCH (11:01)
[2023-01-11 16:33] LABS: POTASSIUM 3.6 MMOL/L (3.6-5.0)
[2023-01-11 16:39] LABS: CREATININE SERUM 0.5 MG/DL (0.60-1.30)
[2023-01-12] MEDS: CEFEPIME 1,000 MG/NS 50 ML IVPB IV SCH ×8 (01:57→19:45)
[2023-01-12] MEDS: METOCLOPRAMIDE 10 MG/10 ML PEG SCH ×4 (02:55→21:40)
[2023-01-12] MEDS: NOREPINEPHRINE 8 MG/250 ML 250 ML IV SCH (02:55)
[2023-01-12 03:53] LABS: BASOPHILS % (AUTO) 0 % (0-10); EOSINOPHILS # (AUTO) 0.3 10^3/uL (0.0-0.3); EOSINOPHILS % (AUTO) 3 % (0-10); HEMATOCRIT 31 % (35-52); HEMOGLOBIN 10.6 g/dL (11.5-16.0); LYMPHOCYTES # (AUTO) 1.5 10^3/uL (1.0-4.0); LYMPHOCYTES % (AUTO) 15 % (12-44); MEAN CORPUSCULAR HEMOGLOBIN 31 pg (25-34); MEAN CORPUSCULAR HGB CONC 34 g/dL (32-36); MEAN CORPUSCULAR VOLUME 92 fL (80-99); MEAN PLATELET VOLUME 10.2 fL (9.0-12.2); MONOCYTES # (AUTO) 0.5 10^3/uL (0.0-1.0); MONOCYTES % (AUTO) 5 % (0-12); NEUTROPHILS # (AUTO) 7.2 10^3/uL (1.8-7.8); NEUTROPHILS % (AUTO) 75 % (42-75); PLATELET COUNT 314 10^3/uL (130-400); WHITE BLOOD COUNT 9.5 10^3/uL (4.3-11.0)
[2023-01-12 04:01] LABS: POTASSIUM 2.8 MMOL/L (3.6-5.0)
[2023-01-12 04:03] LABS: CALCIUM 8.1 MG/DL (8.5-10.1)
[2023-01-12 04:04] LABS: TOTAL PROTEIN 6.1 GM/DL (6.4-8.2)
[2023-01-12 04:06] LABS: BILIRUBIN,TOTAL 0.4 MG/DL (0.1-1.0)
[2023-01-12 04:07] LABS: CREATININE SERUM 0.54 MG/DL (0.60-1.30); PHOSPHORUS 1.9 MG/DL (2.3-4.7)
[2023-01-12 04:10] LABS: MAGNESIUM 1.3 MG/DL (1.6-2.4)
--- NOTE | 2023-01-12 04:27 | Progress Note ---
Standard Progress Note Progress Notes/Assess & Plan Date Seen by a Provider: Jan 12, 2023 Time Seen by a Provider: 04:26 Progress/Assessment & Plan called to replace potassium 2.8 and phos 1.9, will give 30 mmoles of potassium phosphate TED NEWTON MD Jan 12, 2023 04:27
[2023-01-12] MEDS: POTASSIUM CHLORIDE 20 MEQ TABLET PO SCH (05:15)
[2023-01-12] MEDS: MAGNESIUM 1 GM/100 ML IVPB 100 ML IV SCH ×5 (05:15→10:51)
[2023-01-12] MEDS: POTASSIUM CL 10MEQ/50ML IVPB 50 ML IV SCH (05:15)
[2023-01-12] MEDS: NS IV 1000 ML 1,000 ML IV SCH ×2 (06:57→16:30)
[2023-01-12] MEDS: ENOXAPARIN 40 MG/0.4 ML SYRINGE SC SCH (07:54)
[2023-01-12] MEDS: BACLOFEN 10 MG TABLET PEG SCH ×2 (07:55→21:41)
[2023-01-12] MEDS: DOCUSATE SODIUM 100 MG/10 ML UDC ORAL SOLN PEG SCH ×2 (07:55→21:41)
[2023-01-12] MEDS: LevETIRAcetam 500 MG/ 5 ML UDC ORAL SOLN PEG SCH ×2 (07:55→21:41)
[2023-01-12] MEDS: VANCOMYCIN 1 GM/NS 250 ML IVPB IV SCH ×4 (07:55→21:40)
[2023-01-12] MEDS ORDERED: POTASSIUM PHOSPHATE INJ 30 MM in NS (IVPB) 250 ML 250 ML IV ONE (08:00)
--- NOTE | 2023-01-12 08:40 | Diagnostic Imaging Report ---
EXAMINATION: Chest radiograph, portable AP view. DATE: 01/12/2023 4:09 AM INDICATION: 47-year-old female, dyspnea. COMPARISON: January 11, 2023. FINDINGS: There is a tracheostomy tube again noted. Heart size and mediastinal contours are unchanged. There is no identified pneumothorax. There is no identified interval focal airspace consolidation. IMPRESSION: 1. No identified interval acute cardiopulmonary abnormality. Dictated by: Dictated on workstation # [id number]
--- NOTE | 2023-01-12 10:05 | Progress Note - Hospitalist ---
Subjective HPI/CC On Admission Date Seen by Provider: Jan 12, 2023 Time Seen by Provider: 11:00 Subjective/Events-last exam No major issues Patient is semi-comatose IV abx maintained No aspiration noted Review of Systems Neurological: Confusion Focused Exam Lactate Level 01/11/23 05:00: Lactic Acid Level 1.02 Objective Exam Vital Signs Vital Signs Date Time Temp Pulse Resp B/P (MAP) Pulse Ox O2 Delivery O2 Flow Rate FiO2 01/12/23 16:00 88 25 101/81 (90) 95 Trach Collar 7.00 01/12/23 15:56 36.4 01/12/23 14:46 35 Capillary Refill : Less Than 3 Seconds General Appearance: No Apparent Distress, WD/WN, Chronically ill Respiratory: Lungs Clear Cardiovascular: Regular Rate, Rhythm Results/Procedures Lab Laboratory Tests 01/12/23 03:47 Patient resulted labs reviewed. Assessment/Plan Assessment and Plan Assess & Plan/Chief Complaint Assessment: Hypotension Aspiration? 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
--- NOTE | 2023-01-12 10:48 | Tele-ICU Progress Note ---
Subjective Date Seen by a Provider: Jan 12, 2023 Time Seen by a Provider: 10:46 Subjective/Events-last exam (Tele-ICU Physician , Progress Note ) Service provided via interactive audio and video telecommunications E-CARE system to a patient admitted to ICU bed in [facility]. Patient is seen today due to persistent need of ICU care Available chart/ vitals / labs / Images reviewed Video assessment done using teleICU camera, rest of exam as per RN Discussed with RN Events overnight : Afebrile hemodynamically stable Respiratory - 6l TC I/O + Drips: ns 100 Pressors- LEVO 0.45 Hospital course: 01/08) 47/F admitted from ED w/ urosepsis (01/10) Tx to ICU- Hypotension, Hypoxia-concern for aspiration of tubefeeds 01/11- 6L TC , levo 0.45 A/P Sepsis , with shock ( baseline SBP 90s) - NS 150 - try to wean off levo Hypoxia S/p tracheostomy - copious secretion reported - with mucous plugging- -PSA in sputum -cont nebs CHANGE to scheduled regiment , try CHEST PT ( aspiration of TF were suspected at some point ) UTI Proteus mirabilis in urine cx ( suprapubic indwelling catheterin place ) HypoK and hypoMg - replace Hx of Nontraumatic Hemmorhagic Stroke - s/p tracheostomy -s/p PEG colostomy in place - SBO with perf viscvus 05/2022 , 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 Discussed with RN to reach out if any questions or concerns Case and care daily discussed on multidisciplinary rounds ( RN, PharmD, Bending Press Operator , Respiratory Therapy, lawn maintenance worker ) A total of 31 minutes of critical care time was devoted to this patient today, required to treat and/or prevent further deterioration of critical care condition ( as above ) . I am remotely monitoring this patient from another state. I am unable to do the bedside exam, and history/physical and pertinent information is taken from other notes in the computer and bedside staff. Sepsis Event Evaluation Height, Weight, BMI Height: '" Weight: lbs. oz. kg; BMI Method: Focused Exam Lactate Level 01/11/23 05:00: Lactic Acid Level 1.02 Exam Exam Patient acknowledged, consented, and participated in this virtual visit which was conducted using real time audio/video Vital Signs Date Time Temp Pulse Resp B/P (MAP) Pulse Ox O2 Delivery O2 Flow Rate FiO2 01/12/23 10:40 91 Trach Collar 7.00 35 01/12/23 10:00 91 31 101/75 (86) 91 Trach Collar 7.00 01/12/23 09:00 87 20 113/54 (92) 95 Trach Collar 7.00 01/12/23 08:52 85 86/54 01/12/23 08:21 96 Trach Collar 8.00 01/12/23 08:00 92 19 120/82 (95) 94 Trach Collar 7.00 01/12/23 07:51 37.2 Trach Collar 7.00 01/12/23 07:00 73 01/12/23 07:00 75 104/72 (83) 95 Trach Collar 8.00 01/12/23 06:45 82 101/80 (87) 96 Trach Collar 8.00 01/12/23 06:30 85 101/73 (82) 96 Trach Collar 8.00 01/12/23 06:23 94 Trach Collar 6.00 30 01/12/23 06:15 76 98/64 (75) 95 Trach Collar 8.00 01/12/23 06:00 83 99/64 (76) 96 Trach Collar 8.00 01/12/23 05:45 77 109/63 (78) 94 Trach Collar 8.00 01/12/23 05:30 92 98/85 (89) 96 Trach Collar 8.00 01/12/23 05:15 84 91/72 (78) 95 Trach Collar 8.00 01/12/23 05:00 97 102/57 (72) 95 Trach Collar 8.00 01/12/23 04:45 87 96/72 (80) 96 Trach Collar 8.00 01/12/23 04:30 89 95/67 (76) 95 Trach Collar 8.00 01/12/23 04:15 99 94/70 (78) 95 Trach Collar 8.00 01/12/23 04:00 96 111/70 (84) 94 Trach Collar 8.00 01/12/23 03:49 96 Trach Collar 8.00 01/12/23 03:45 92 94/62 (73) 94 Trach Collar 8.00 01/12/23 03:37 36.8 01/12/23 03:30 91 88/55 (66) 94 Trach Collar 8.00 01/12/23 03:15 100 97/52 (67) 94 Trach Collar 8.00 01/12/23 03:00 104 91/63 (72) 93 Trach Collar 8.00 01/12/23 02:55 96 101/33 01/12/23 02:45 111 100/58 (72) 94 Trach Collar 8.00 01/12/23 02:30 108 92/70 (77) 93 Trach Collar 8.00 01/12/23 02:21 94 Trach Collar 6.00 30 01/12/23 02:15 95 110/71 (84) 95 Trach Collar 8.00 01/12/23 02:00 96 101/33 (55) 95 Trach Collar 8.00 01/12/23 01:45 125 137/102 (114) 95 Trach Collar 8.00 01/12/23 01:30 80 114/76 (89) 95 Trach Collar 8.00 01/12/23 01:15 82 111/81 (91) 96 Trach Collar 8.00 01/12/23 01:00 81 104/85 (91) 94 Trach Collar 8.00 01/12/23 00:45 82 113/79 (90) 95 Trach Collar 8.00 01/12/23 00:30 86 107/72 (84) 94 Trach Collar 8.00 01/12/23 00:24 84 01/12/23 00:15 85 113/91 (98) 96 Trach Collar 8.00 01/12/23 00:00 87 113/91 (98) 94 Trach Collar 8.00 01/11/23 23:51 94 Trach Collar 8.00 01/11/23 23:45 86 115/85 (95) 94 Trach Collar 8.00 01/11/23 23:30 85 108/78 (88) 94 Trach Collar 8.00 01/11/23 23:22 36.6 01/11/23 23:15 81 110/85 (93) 94 Trach Collar 8.00 01/11/23 23:00 82 128/89 (102) 94 Trach Collar 8.00 01/11/23 22:55 94 Trach Collar 6.00 30 01/11/23 22:45 85 116/76 (89) 95 Trach Collar 8.00 01/11/23 22:30 78 120/79 (93) 96 Trach Collar 8.00 01/11/23 22:15 77 123/79 (94) 96 Trach Collar 8.00 01/11/23 22:00 81 123/87 (99) 96 Trach Collar 8.00 01/11/23 21:45 80 116/78 (91) 96 Trach Collar 8.00 01/11/23 21:30 79 124/95 (105) 96 Trach Collar 8.00 01/11/23 21:15 80 111/79 (90) 96 Trach Collar 8.00 01/11/23 21:00 81 119/84 (96) 95 Trach Collar 8.00 01/11/23 20:45 86 139/83 (101) 95 Trach Collar 8.00 01/11/23 20:30 81 115/93 (100) 95 Trach Collar 8.00 01/11/23 20:27 75 100/79 01/11/23 20:15 81 123/86 (98) 95 Trach Collar 8.00 01/11/23 20:00 75 100/79 (86) 97 Trach Collar 8.00 01/11/23 19:58 98 Trach Collar 8.00 01/11/23 19:50 35.9 01/11/23 19:45 73 112/81 (91) 98 Trach Collar 8.00 01/11/23 19:30 75 116/75 (89) 96 Trach Collar 8.00 01/11/23 19:15 79 100/76 (84) 95 Trach Collar 8.00 01/11/23 19:00 72 01/11/23 19:00 61 121/71 (88) 95 Trach Collar 8.00 01/11/23 18:38 95 Trach Collar 6.00 30 01/11/23 18:00 58 117/76 (94) 96 Trach Collar 8.00 01/11/23 17:00 58 125/78 (95) 96 Trach Collar 8.00 01/11/23 16:25 36.1 01/11/23 16:00 95 Trach Collar 8.00 01/11/23 16:00 73 91 Trach Collar 8.00 01/11/23 15:00 73 117/68 (102) 98 Trach Collar 8.00 01/11/23 14:00 61 117/77 (89) 97 Trach Collar 8.00 01/11/23 13:00 79 25 111/75 (86) 94 Trach Collar 8.00 01/11/23 12:29 81 01/11/23 12:00 89 108/74 (83) 95 Trach Collar 8.00 01/11/23 12:00 98 Trach Collar 8.00 01/11/23 11:12 36.6 01/11/23 11:00 70 20 117/70 (86) 96 Trach Collar 8.00 I & O 01/12/23 07:00 Intake Total 6847 ml Output Total 5350 ml Balance 1497 ml Height & Weight Height: '" Weight: lbs. oz. kg; BMI Method: General Appearance: No Apparent Distress, WD/WN, Chronically ill HEENT: PERRL/EOMI Neck: Normal Inspection, Other (Tracheostomy in place) Respiratory: Crackles, Decreased Breath Sounds Cardiovascular: Regular Rate, Rhythm, No Edema, No Murmur Capillary Refill: Less Than 3 Seconds Gastrointestinal: normal bowel sounds, non tender, soft, other (Colostomy pink with stool in colostomy bag, feeding tube in place, no erythema or ulcerations noted around the feeding tube) Extremity: No Pedal Edema Neurologic/Psychiatric: Alert Skin: Cool Results Lab Laboratory Tests 01/10/23 17:00 01/11/23 05:00 01/11/23 16:05 01/12/23 03:47 Assessment/Plan Assessment/Plan 1 AMBERLY FRIEND MD Jan 12, 2023 10:48
[2023-01-12] MEDS: RT-Ipratropium/Albuterol NEB 3 ML VIAL IH SCH ×2 (14:46→20:43)
[2023-01-13] MEDS: NS IV 1000 ML 1,000 ML IV SCH ×3 (00:49→10:45)
[2023-01-13] MEDS: RT-Ipratropium/Albuterol NEB 3 ML VIAL IH SCH ×4 (01:45→21:29)
[2023-01-13] MEDS: CEFEPIME 1,000 MG/NS 50 ML IVPB IV SCH ×4 (02:58→08:24)
[2023-01-13 04:29] LABS: BASOPHILS % (AUTO) 0 % (0-10); EOSINOPHILS # (AUTO) 0.4 10^3/uL (0.0-0.3); EOSINOPHILS % (AUTO) 6 % (0-10); HEMATOCRIT 30 % (35-52); HEMOGLOBIN 10.1 g/dL (11.5-16.0); LYMPHOCYTES # (AUTO) 1.9 10^3/uL (1.0-4.0); LYMPHOCYTES % (AUTO) 27 % (12-44); MEAN CORPUSCULAR HEMOGLOBIN 31 pg (25-34); MEAN CORPUSCULAR HGB CONC 34 g/dL (32-36); MEAN CORPUSCULAR VOLUME 93 fL (80-99); MONOCYTES # (AUTO) 0.5 10^3/uL (0.0-1.0); MONOCYTES % (AUTO) 7 % (0-12); NEUTROPHILS # (AUTO) 4.1 10^3/uL (1.8-7.8); NEUTROPHILS % (AUTO) 60 % (42-75); PLATELET COUNT 317 10^3/uL (130-400); WHITE BLOOD COUNT 6.9 10^3/uL (4.3-11.0)
[2023-01-13] MEDS: METOCLOPRAMIDE 10 MG/10 ML PEG SCH ×3 (04:47→15:08)
[2023-01-13 04:51] LABS: ALBUMIN 2.9 GM/DL (3.2-4.5); BILIRUBIN,TOTAL 0.2 MG/DL (0.1-1.0); CALCIUM 7.9 MG/DL (8.5-10.1); CREATININE SERUM 0.48 MG/DL (0.60-1.30); MAGNESIUM 1.9 MG/DL (1.6-2.4); PHOSPHORUS 2.8 MG/DL (2.3-4.7); POTASSIUM 3.1 MMOL/L (3.6-5.0); TOTAL PROTEIN 5.8 GM/DL (6.4-8.2)
[2023-01-13] MEDS: MAGNESIUM 1 GM/100 ML IVPB 100 ML IV SCH ×3 (06:00→07:19)
[2023-01-13] MEDS: POTASSIUM CL 10MEQ/50ML IVPB 50 ML IV SCH ×9 (06:00→15:58)
[2023-01-13] MEDS: POTASSIUM CHLORIDE 20 MEQ TABLET PO SCH (06:00)
--- NOTE | 2023-01-13 07:35 | Progress Note ---
KATALINA PEREZ MD, RESIDENT 01/13/23 0734: Subjective HPI/CC On Admission Date Seen by Provider: Jan 13, 2023 Time Seen by Provider: 07:35 Subjective/Events-last exam Unable to obtain subjective history given that patient is aphasic. She continues to appear comfortable. Per the nurse, during PEG tube feedings today, patient was noted to have bubbling of PEG tube feeds from the trach. It does ap pear that patient may be having aspiration. Review of Systems Unable to obtain as patient is aphasic Focused Exam Lactate Level 01/11/23 05:00: Lactic Acid Level 1.02 Objective Exam Vital Signs Vital Signs Date Time Temp Pulse Resp B/P (MAP) Pulse Ox O2 Delivery O2 Flow Rate FiO2 01/13/23 11:00 79 83/54 (64) 92 Trach Collar 35.00 01/13/23 10:46 37.2 01/13/23 10:10 35 01/12/23 21:00 18 Capillary Refill : Less Than 3 Seconds General Appearance: No Apparent Distress HEENT: PERRL/EOMI Neck: Normal Inspection, Other (Tracheostomy in place) Respiratory: Chest Non Tender, Lungs Clear, Normal Breath Sounds, No Accessory Muscle Use, No Respiratory Distress Cardiovascular: Regular Rate, Rhythm, No Edema, No Murmur Gastrointestinal: Normal Bowel Sounds, Non Tender, Soft Skin: Normal Color, Warm/Dry Results/Procedures Lab Laboratory Tests 01/13/23 04:17 Patient resulted labs reviewed. Assessment/Plan Assessment and Plan Assess & Plan/Chief Complaint Patient is a 47-year-old female who was admitted for urinary tract infection. Is currently requiring Levophed for hypotension and ICU status. Diagnosis/Problems Diagnosis/Problems (1) Catheter-associated urinary tract infection Status: Acute Assessment & Plan: Urinary tract infection secondary to chronic indwelling suprapubic catheter. Patient appears quite comfortable. Plan: Urine culture growing Proteus Sputum culture growing Pseudomonas and Achromobacter Blood cultures growing staph hominis and epidermidis, this is likely a contaminant given that only 1 bottle of 3 was growing staph Follow-up urine culture, growing Proteus mirabilis so far. Susceptibilities pending. Continue cefepime We will discontinue vancomycin today Consulting surgery for Gro[place]ong port placement versus PICC placement Qualifiers: Qualified Codes: T83.510A - Infection and inflammatory reaction due to cystostomy catheter, initial encounter; N39.0 - Urinary tract infection, site not specified (2) Hypotension Status: Chronic Assessment & Plan: Patient has been on Levophed due to pressures dropping to 70s. Attempts were made last night to wean patient off of the Levophed with continued drops in her blood pressure. Plan: Continue Levophed this morning, will monitor patient for couple of hours If tolerating well will transfer patient down to fourth floor (3) Tracheostomy care Status: Chronic Assessment & Plan: Continue routine tracheostomy care (4) Uses feeding tube Status: Chronic Assessment & Plan: Patient continues to show concerns for aspiration with tube feeds. Consulted surgery for evaluation Holding tube feeds until above evaluation is completed (5) Colostomy care Status: Chronic Assessment & Plan: Continue routine colostomy care. (6) Hypokalemia Status: Acute Assessment & Plan: Patient continues to have hypokalemia. Potassium of 3.1 this AM. Plan: We will start 20 mg potassium 3 times daily to be given per PEG tube JOCELINE GONZALEZ DO 01/14/23 0443: Subjective Subjective/Events-last exam No major changes Moving to cardiac stepdown bed may need to transfer back to ICU status due to hypotension Overall very poor prognosis Objective Exam General Appearance: No Apparent Distress, WD/WN, Chronically ill Respiratory: Lungs Clear, Normal Breath Sounds Cardiovascular: Regular Rate, Rhythm Assessment/Plan Assessment and Plan Assess & Plan/Chief Complaint Cardiac stepdown Monitor blood pressure KATALINA PEREZ MD, RESIDENT Jan 13, 2023 07:34 JOCELINE GONZALEZ DO Jan 14, 2023 04:43
[2023-01-13] MEDS: NOREPINEPHRINE 8 MG/250 ML 250 ML IV SCH (08:17)
[2023-01-13] MEDS: LevETIRAcetam 500 MG/ 5 ML UDC ORAL SOLN PEG SCH ×2 (08:25→20:09)
[2023-01-13] MEDS: ENOXAPARIN 40 MG/0.4 ML SYRINGE SC SCH (08:25)
[2023-01-13] MEDS: BACLOFEN 10 MG TABLET PEG SCH ×2 (08:25→20:05)
[2023-01-13] MEDS: DOCUSATE SODIUM 100 MG/10 ML UDC ORAL SOLN PEG SCH ×2 (08:25→20:10)
--- NOTE | 2023-01-13 08:56 | Diagnostic Imaging Report ---
EXAMINATION: Chest, 1 view. HISTORY: Dyspnea. COMPARISON: 01/12/2023. FINDINGS: Tracheostomy is in place with the tip overlying the trachea approximately 4 to 5 cm above the ministerio. Stable cardiomegaly with increased congestion. No pleural effusion or pneumothorax. IMPRESSION: 1. Cardiomegaly with increased congestion. 2. Tracheostomy in the appropriate configuration. Dictated by: Dictated on workstation # [id number]
[2023-01-13] MEDS: VANCOMYCIN 1 GM/NS 250 ML IVPB IV SCH ×2 (09:15)
--- NOTE | 2023-01-13 09:24 | Tele-ICU Progress Note ---
Subjective Date Seen by a Provider: Jan 13, 2023 Time Seen by a Provider: 09:24 Subjective/Events-last exam (Tele-ICU Physician , Progress Note ) Service provided via interactive audio and video telecommunications E-CARE system to a patient admitted to ICU bed in [facility]. Patient is seen today due to persistent need of ICU care Available chart/ vitals / labs / Images reviewed Video assessment done using teleICU camera, rest of exam as per RN Discussed with RN Events overnight : Afebrile hemodynamically stable Respiratory - 6l TC I/O + Drips: ns 100 Pressors- LEVO OFF Hospital course: 01/08) 47/F admitted from ED w/ urosepsis (01/10) Tx to ICU- Hypotension, Hypoxia-concern for aspiration of tubefeeds 01/11- 6L TC , levo 0.45 01/13 - LEVO OFF , 8 L o2 A/P Sepsis , with shock ( baseline SBP 90s) - NS 150 - to stop -off levo Hypoxia ( S/p tracheostomy - copious secretion reported - with mucous plugging- ? mucomist -PSA in sputum and Achromobacter xylosoxidans -cont nebs CHANGE to scheduled regiment , try CHEST PT ( aspiration of TF were suspected at some point and had new additional sounds from TC when TF hiven - nothing on sucction - consider gastrografin PEG - ? retrograde TF move ) UTI Proteus mirabilis in urine cx ( suprapubic indwelling catheterin place ) HypoK and hypoMg - replace Hx of Nontraumatic Hemmorhagic Stroke - s/p tracheostomy -s/p PEG colostomy in place - SBO with perf viscvus 05/2022 , s/p subtotal colectomy with partial omentectomy and iliostomy Nutrition - cont TF H/o Sx - on keppra Diarrhea - check for c diff - stop reglan Lines : midline right , (Central Line Necessity Reviewed) Perez: suprapubic indwelling catheter OG: Nutrition: PEG, Analgesia: Anxiety/ delirium VTE Prophylaxis: jose roberto 40 Stress Ulcer Prophylaxis: pepcid iv Plans in collaboration with bedside consultants and IM MDs. Discussed with RN to reach out if any questions or concerns Case and care daily discussed on multidisciplinary rounds ( RN, PharmD, Incinerator Plant Supervisor , Respiratory Therapy, health care social worker ) A total of 31 minutes of critical care time was devoted to this patient today, required to treat and/or prevent further deterioration of critical care condition ( as above ) . I am remotely monitoring this patient from another state. I am unable to do the bedside exam, and history/physical and pertinent information is taken from other notes in the computer and bedside staff. Sepsis Event Evaluation Height, Weight, BMI Height: '" Weight: lbs. oz. kg; BMI Method: Focused Exam Lactate Level 01/11/23 05:00: Lactic Acid Level 1.02 Exam Exam Patient acknowledged, consented, and participated in this virtual visit which was conducted using real time audio/video Vital Signs Date Time Temp Pulse Resp B/P (MAP) Pulse Ox O2 Delivery O2 Flow Rate FiO2 01/13/23 09:00 87 91/55 (67) 92 Trach Collar 35.00 01/13/23 08:00 81 91/57 (68) 94 Trach Collar 35.00 01/13/23 07:21 36.2 01/13/23 07:00 72 01/13/23 07:00 69 104/78 (87) 96 Trach Collar 35.00 01/13/23 06:00 73 99/66 (80) 96 Trach Collar 35.00 01/13/23 05:00 72 138/80 (103) 95 Trach Collar 35.00 01/13/23 04:30 61 121/76 (95) 98 Trach Collar 35.00 01/13/23 04:15 80 85/52 (63) 98 Trach Collar 35.00 01/13/23 04:00 94 Trach Collar 8.00 35 01/13/23 04:00 61 121/80 (94) 98 Trach Collar 35.00 01/13/23 03:40 36.5 01/13/23 03:00 67 106/61 (76) 97 Trach Collar 35.00 01/13/23 02:00 79 103/92 (98) 96 Trach Collar 35.00 01/13/23 01:45 97 Trach Collar 8.00 35 01/13/23 01:00 63 104/64 (78) 96 Trach Collar 35.00 01/13/23 01:00 63 01/13/23 00:45 81 78/44 (54) 95 Trach Collar 35.00 01/13/23 00:37 73 99/68 (76) 96 Trach Collar 35.00 01/13/23 00:30 77 84/49 (59) 94 Trach Collar 35.00 01/13/23 00:15 76 94/53 (68) 94 Trach Collar 35.00 01/13/23 00:00 95 Trach Collar 8.00 35 01/13/23 00:00 69 101/61 (75) 95 Trach Collar 35.00 01/12/23 23:00 84 106/81 (87) 96 Trach Collar 35.00 01/12/23 22:00 73 112/69 (84) 96 Trach Collar 35.00 01/12/23 21:00 72 18 107/68 (81) 97 Trach Collar 35.00 01/12/23 20:43 90 Trach Collar 7.00 35 01/12/23 20:00 80 17 108/69 (76) 95 Trach Collar 35.00 01/12/23 20:00 94 Trach Collar 8.00 35 01/12/23 19:51 36.6 01/12/23 19:45 77 15 105/50 (82) 93 Trach Collar 35.00 01/12/23 19:30 79 15 107/62 (81) 95 Trach Collar 35.00 01/12/23 19:15 72 12 86/61 (74) 95 Trach Collar 35.00 01/12/23 19:00 72 18 100/63 (76) 94 Trach Collar 35.00 01/12/23 19:00 72 01/12/23 18:00 86 11 119/72 (83) 95 Trach Collar 10.00 01/12/23 17:00 72 18 106/68 (79) 96 Trach Collar 10.00 01/12/23 16:33 96 Trach Collar 8.00 01/12/23 16:10 Trach Collar 10.00 01/12/23 16:00 88 25 101/81 (90) 95 Trach Collar 7.00 01/12/23 15:56 36.4 01/12/23 15:00 102 36 90/58 (68) 93 Trach Collar 7.00 01/12/23 14:46 90 Trach Collar 7.00 35 01/12/23 14:00 78 26 93/63 (80) 91 Trach Collar 7.00 01/12/23 13:00 78 18 109/91 (98) 91 Trach Collar 7.00 01/12/23 12:25 76 01/12/23 12:05 36.1 Trach Collar 7.00 01/12/23 12:00 81 35 93/68 (77) 95 Trach Collar 7.00 01/12/23 12:00 96 Trach Collar 8.00 01/12/23 11:00 75 17 94/66 (76) 91 Trach Collar 7.00 01/12/23 10:40 91 Trach Collar 7.00 35 01/12/23 10:00 91 31 101/75 (86) 91 Trach Collar 7.00 I & O 01/13/23 07:00 Intake Total 5614 ml Output Total 7925 ml Balance -2311 ml Height & Weight Height: '" Weight: lbs. oz. kg; BMI Method: General Appearance: No Apparent Distress, WD/WN, Chronically ill HEENT: PERRL/EOMI Neck: Normal Inspection, Other (Tracheostomy in place) Respiratory: Lungs Clear Cardiovascular: Regular Rate, Rhythm Capillary Refill: Less Than 3 Seconds Gastrointestinal: normal bowel sounds, non tender, soft, other (Colostomy pink with stool in colostomy bag, feeding tube in place, no erythema or ulcerations noted around the feeding tube) Extremity: No Pedal Edema Neurologic/Psychiatric: Alert Skin: Cool Results Lab Laboratory Tests 01/11/23 16:05 01/12/23 03:47 01/13/23 04:17 Assessment/Plan Assessment/Plan 1 AMBERLY FRIEND MD Jan 13, 2023 09:24
[2023-01-13] MEDS: MEROPENEM 1,000 MG/NS 100 ML IVPB IV SCH ×4 (11:56→20:05)
[2023-01-13] MEDS: POTASSIUM BICARB 20 MEQ effervescent TABLET PEG SCH ×2 (13:03→20:10)
[2023-01-13] MEDS ORDERED: DIATRIZOATE MEGLUM/SODIUM 37% 120 ML (GASTROGRAFIN) PO ONE (14:15)
--- NOTE | 2023-01-13 16:02 | Consultation - Surgery ---
History of Present Illness History of Present Illness Patient Consulted On(sai/time) 01/13/23 15:57 Time Seen by Provider: 11:38 History of Present Illness Surgery asked to consult regarding reflux, Gastrostomy tube and Venous insufficiency. HPI per ED: 47-year-old female presenting by EMS from [facility] long term. 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 She has a trach in place as well as a feeding tube, colostomy and suprapubic indwelling catheter. Per the long term she was having more trouble breathing today and they felt that she was getting a red color to her face. There was concern that she could be septic as she has had sepsis previously. She has reportedly had her suprapubic catheter changed out 3 times in the last week. She does have a cough at times. When I saw pt I spoke to nurse and then went back and talked to her . Nurse stated she heard "gurgling" as soon as she put tube feeds down the PEG tube. later stated the pt can swallow; "I tell her to swallow when she is drooling and she does it". However, he also stated that they have not gotten swallow study. He thinks "gurgling" started a couple weeks ago. Allergies and Home Medications Allergies Coded Allergies: No Known Drug Allergies (Unverified , 06/12/21) Patient Home Medication List Home Medication List Reviewed: Yes Acetaminophen (Acetaminophen) 650 Mg/20.3 Ml Oral.susp, 20.3 ML PEG Q6H PRN for PAIN-MILD (1-4) OR TEMPATURE, (Reported) Entered as Reported by: DAGOBERTO STRATTON on 05/20/221533 Last Action: Converted Azelastine HCl (Azelastine HCl) 137 Mcg (0.1 %) [place].pump, 2 SPRAYS NSEACH HS, (Reported) Entered as Reported by: DAGOBERTO STRATTON on 05/20/221533 Last Action: Reviewed Baclofen (Baclofen) 10 Mg Tablet, 10 MG PEG BID, (Reported) Entered as Reported by: DAGOBERTO STRATTON on 05/20/221533 Last Action: Continued Bisacodyl (Bisacodyl) 10 Mg Supp.rect, 10 MG RC DAILY PRN for CONSTIPATION-4TH LINE, (Reported) Entered as Reported by: DAGOBERTO STRATTON on 05/20/221533 Last Action: Continued Cranberry Fruit (Cranberry) 450 Mg Tablet, 450 MG PEG BID, (Reported) Entered as Reported by: DAGOBERTO STRATTON on 05/20/221533 Last Action: Reviewed Docusate Sodium (Stool Softener) 50 Mg/5 Ml Liquid, 10 ML PEG BID, (Reported) Entered as Reported by: TIFFANIE KNOTT on 11/21/221525 Last Action: Continued Hydrocodone/Acetaminophen (Hydrocodone-Acetamn 7.5-325/15) 7.5 Mg-325 Mg/15 Ml Solution, 10 ML PEG Q6H PRN for PAIN-MODERATE (5-7), (Reported) Entered as Reported by: TIFFANIE KNOTT on 11/21/221528 Last Action: Reviewed Hydrocodone/Acetaminophen (Hydrocodone-Acetamin 5-325 mg) 5 Mg-325 Mg Tablet, 1 TAB PEG Q6H PRN for PAIN-MODERATE (5-7), (Reported) Entered as Reported by: CAORL ANN DE LEON on 01/09/23 1256 Last Action: Continued Ipratropium/Albuterol Sulfate (Iprat-Albut 0.5-3(2.5) mg/3 ml) 0.5 Mg-3 Mg (2.5 Mg Base)/3 Ml Ampul.neb, 3 ML PO Q6H PRN for SHORTNESS OF BREATH, (Reported) Entered as Reported by: DAGOBERTO STRATTON on 05/20/221533 Last Action: Continued Ketoconazole (Ketoconazole) 2 % Shampoo, 1 APPLIC TP ,WE,TH,SA, (Reported) Entered as Reported by: DAGOBERTO STRATTON on 05/20/221533 Last Action: Reviewed Lactulose (Lactulose) 10 Gram/15 Ml Solution, 30 ML PEG DAILY, (Reported) Entered as Reported by: DAGOBERTO STRATTON on 05/20/221533 Last Action: Reviewed Levetiracetam (Keppra) 100 Mg/Ml Solution, 7.5 ML PEG BID, (Reported) Entered as Reported by: DAGOBERTO STRATTON on 05/20/221533 Last Action: Continued Metoclopramide HCl (Metoclopramide HCl) 5 Mg Tablet, 5 MG PEG Q6H, (Reported) Entered as Reported by: DAGOBERTO STRATTON on 05/20/221533 Last Action: Continued Nystatin (Nystatin) 100,000 Unit/Gram Cream..g., 1 APPLIC TP BID, (Reported) Entered as Reported by: DAGOBERTO STRATTON on 05/20/221533 Last Action: Reviewed Polyethylene Glycol 3350 (Miralax) 17 Gram Powd.pack, 17 GM PEG DAILY PRN for CONSTIPATION-2ND LINE, (Reported) Entered as Reported by: DAGOBERTO STRATTON on 05/20/221533 Last Action: Continued Potassium Chloride (Potassium Chloride) 20 Meq Tablet.er, 20 MEQ PEG DAILY, (Reported) Entered as Reported by: TIFFANIE KNOTT on 11/21/221535 Last Action: Reviewed Discontinued Medications Albuterol Sulfate (Albuterol Sulfate) 0.63 Mg/3 Ml Vial.neb, 1 VIAL PO TID PRN for SHORTNESS OF BREATH, (Reported) Discontinued Reason: No Longer Taking Entered as Reported by: TIFFANIE KNOTT on 11/21/221516 Last Action: Discontinued Cephalexin (Cephalexin) 250 Mg Capsule, 500 MG GT TID Discontinued Reason: No Longer Taking Prescribed by: ADDISON DORAN on 11/26/22742 Last Action: Discontinued Sulfamethoxazole/Trimethoprim (Bactrim Ds Tablet) 1 Each Tablet, 1 EA GT BID WITH MEALS Discontinued Reason: No Longer Taking Prescribed by: ADDISON DORAN on 11/26/22742 Last Action: Discontinued Past [id number]-Krcfsa Hx Patient Social History Smoking Status: Unknown if Ever Smoked Alcohol Use?: No Surgeries History of Surgeries: Yes Surgeries: Abdominal, Section, Tracheostomy Respiratory History of Respiratory Disorde: No Cardiovascular History of Cardiac Disorders: No Neurological History of Neurological Disord: Yes Neurological Disorders: Stroke Genitourinary History of Genitourinary Disor: Yes Genitourinary Disorders: Bladder Infection, UTI-Chronic Gastrointestinal History of Gastrointestinal Di: Yes Gastrointestinal Disorders: Obstructive Bowel, Irritable Bowel Musculoskeletal History of Musculoskeletal Dis: No Endocrine History of Endocrine Disorders: No HEENT History of HEENT Disorders: No Cancer History of Cancer: No Psychosocial History of Psychiatric Problem: No Integumentary History of Skin or Integumenta: No Family Medical History Significant Family History: Cancer Review of Systems-General ROS-Unable to Obtain: pt aphasic, not sure about everything bc [place] [facility] [place] Physical Exam-General Problems Physical Exam Vital Signs Vital Signs - First Documented 01/08/23 01/09/23 01/09/23 19:00 01:17 12:55 Temp 38.2 Pulse 112 Resp 22 B/P (MAP) 98/62 (74) Pulse Ox 98 O2 Delivery Room Air O2 Flow Rate 0.00 FiO2 21 Capillary Refill : Less Than 3 Seconds General Appearance: no apparent distress, other (pt doesn't really respond, opens eyes but not on command) HEENT: No scleral icterus (R), No scleral icterus (L) Respiratory: no respiratory distress, no accessory muscle use, crackles, wheezing Cardiovascular: no murmur, tachycardia Gastrointestinal: soft, other (colostomy pink and functioning, PEG tube looks like it going to crumble and fall apart, but no breakdown around it) Genital/Rectal: other (Supra-pubic catheter in place) Extremities: other (arms are contracted) Skin: normal color, warm/dry Data Review Labs Laboratory Tests 01/13/23 04:17: White Blood Count 6.9, Red Blood Count 3.25L, Hemoglobin 10.1L, Hematocrit 30L, Mean Corpuscular Volume 93, Mean Corpuscular Hemoglobin 31, Mean Corpuscular Hemoglobin Concent 34, Red Cell Distribution Width 12.7, Platelet Count 317, Mean Platelet Volume 10.0, Immature Granulocyte % (Auto) 0, Neutrophils (%) (Auto) 60, Lymphocytes (%) (Auto) 27, Monocytes (%) (Auto) 7, Eosinophils (%) (Auto) 6, Basophils (%) (Auto) 0, Neutrophils # (Auto) 4.1, Lymphocytes # (Auto) 1.9, Monocytes # (Auto) 0.5, Eosinophils # (Auto) 0.4H, Basophils # (Auto) 0.0, Immature Granulocyte # (Auto) 0.0, Sodium Level 140, Potassium Level 3.1L, Chloride Level 108H, Carbon Dioxide Level 23, Anion Gap 9, Blood Urea Nitrogen 2L, Creatinine 0.48L, Estimat Glomerular Filtration Rate 116, BUN/Creatinine Ratio 4, Glucose Level 125H, Calcium Level 7.9L, Corrected Calcium 8.8, Phosphorus Level 2.8, Magnesium Level 1.9, Total Bilirubin 0.2, Aspartate Amino Transf (AST/SGOT) 11, Alanine Aminotransferase (ALT/SGPT) 12, Alkaline Phosphatase 67, Total Protein 5.8L, Albumin 2.9L Microbiology 01/13/23 C. difficile GDH Antigen & Toxins - Final, Complete 01/09/23 Gram Stain - Final, Complete 01/09/23 Sputum Culture - Final, Complete Pseudomonas aeruginosa Achromobacter xylosoxidans ssp Usual upper respiratory ginette 01/08/23 Blood Culture - Preliminary, Resulted 01/08/23 Urine Culture - Final, Complete Proteus mirabilis Mixed Bacterial Ginette Assessment/Plan Assessment/Plan Assessment/Plan S/P Hemorrhagic Stroke in May of 2021 Venous Insufficiency Gastrostomy tube I spoke with pt's regarding procedures, right now they have a small IV in her chest and the PICC nurse could not find a vein to use. I think her best option is a john-cath; discussed the risks and complications with the , not limited to pain, bleeding, infection and even pneumothorax. Will place this on the left side because she has a shunt on the right side. I will also exchange her PEG tube with a Gastrostomy tube at the same time. She has been getting Lovenox; therefore, will hold this and plan on procedures tomorrow. All questions answered to 's satisfaction. Will get consent. MARCIA MCCANN DO Jan 13, 2023 16:02
--- NOTE | 2023-01-13 18:48 | Diagnostic Imaging Report ---
INDICATION: A PEG tube check. Pre and postcontrast enhanced KUB performed following contrast injection. Frontal and crosstable lateral views were undertaken. Contrast injection opacifies the stomach. There is patent gastric outlet with contrast extending through the duodenum just beyond the ligament of Treitz. No extravasation. Crosstable lateral view shows the retention device to be within the gastric lumen at the mid body level. IMPRESSION: Gastrostomy in position and patent. Dictated by: Dictated on workstation # [id number]
[2023-01-14] MEDS: RT-Ipratropium/Albuterol NEB 3 ML VIAL IH SCH ×4 (03:45→21:07)
[2023-01-14] MEDS: NOREPINEPHRINE 8 MG/250 ML 250 ML IV SCH ×2 (04:20→17:28)
[2023-01-14] MEDS: MEROPENEM 1,000 MG/NS 100 ML IVPB IV SCH ×6 (04:24→20:02)
[2023-01-14 04:50] LABS: BASOPHILS % (AUTO) 0 % (0-10); EOSINOPHILS # (AUTO) 0.3 10^3/uL (0.0-0.3); EOSINOPHILS % (AUTO) 4 % (0-10); HEMATOCRIT 32 % (35-52); HEMOGLOBIN 10.4 g/dL (11.5-16.0); LYMPHOCYTES # (AUTO) 2.1 10^3/uL (1.0-4.0); LYMPHOCYTES % (AUTO) 28 % (12-44); MEAN CORPUSCULAR HEMOGLOBIN 31 pg (25-34); MEAN CORPUSCULAR HGB CONC 33 g/dL (32-36); MEAN CORPUSCULAR VOLUME 95 fL (80-99); MEAN PLATELET VOLUME 10.4 fL (9.0-12.2); MONOCYTES # (AUTO) 0.6 10^3/uL (0.0-1.0); MONOCYTES % (AUTO) 8 % (0-12); NEUTROPHILS # (AUTO) 4.4 10^3/uL (1.8-7.8); NEUTROPHILS % (AUTO) 60 % (42-75); PLATELET COUNT 287 10^3/uL (130-400); WHITE BLOOD COUNT 7.4 10^3/uL (4.3-11.0)
[2023-01-14 05:03] LABS: BILIRUBIN,TOTAL 0.4 MG/DL (0.1-1.0); CALCIUM 8.5 MG/DL (8.5-10.1); CREATININE SERUM 0.48 MG/DL (0.60-1.30); MAGNESIUM 1.7 MG/DL (1.6-2.4); PHOSPHORUS 2.5 MG/DL (2.3-4.7); POTASSIUM 3.8 MMOL/L (3.6-5.0); TOTAL PROTEIN 5.8 GM/DL (6.4-8.2)
[2023-01-14] MEDS: MAGNESIUM 1 GM/100 ML IVPB 100 ML IV SCH ×5 (05:58→09:12)
[2023-01-14] MEDS: POTASSIUM CL 10MEQ/50ML IVPB 50 ML IV SCH ×3 (05:58→08:00)
[2023-01-14] MEDS: POTASSIUM CHLORIDE 20 MEQ TABLET PO SCH (05:58)
[2023-01-14] MEDS ORDERED: POTASSIUM CL 10MEQ/50ML IVPB 100 ML IV ONE (06:38)
[2023-01-14] MEDS ORDERED: MAGNESIUM 1 GM/100 ML IVPB 400 ML IV ONE (06:38)
--- NOTE | 2023-01-14 08:37 | Diagnostic Imaging Report ---
HISTORY: Dyspnea TECHNIQUE: Frontal view of the chest. COMPARISON: 01/13/2023 FINDINGS: The tracheostomy tube is in stable position. There is mild cardiomegaly with central vascular congestion which appears stable since prior study. No large effusion or pneumothorax is seen. SUPERVISING [employer] ENFORCEMENT ANALYST shunt is noted on the right. IMPRESSION: 1. Stable cardiomegaly and central vascular congestion. Dictated by: Dictated on workstation # [id number]
--- NOTE | 2023-01-14 08:51 | Progress Note - Surgery ---
MAYTE NICK 01/14/23 0851: Subjective Date Seen by a Provider: Jan 14, 2023 Time Seen by a Provider: 08:05 Subjective/Events-last exam Per nursing, Jazzmine Baron was stable overnight. When I examined her this morning the nurse was at bedside clearing mucus out of her tracheostomy tube. The nurse said her would be back around 11 this morning. She has not been given tube feeds today in preparation for her port placement. Review of Systems HEENT: Sinus Congestion Pulmonary: Dyspnea Cardiovascular: Palpitations, Lt Headedness Genitourinary: Hematuria ROS - unable to obtain, patient is aphasic Objective Exam Vital Signs Date Time Temp Pulse Resp B/P (MAP) Pulse Ox O2 Delivery O2 Flow Rate FiO2 01/14/23 07:58 36.5 73 89/56 (67) Vapotherm 15.00 35.00 01/14/23 07:00 70 01/14/23 04:00 Vapotherm 15.00 35 01/14/23 04:00 76 95/60 (72) Vapotherm 15.00 35.00 01/14/23 03:45 95 Vapotherm 15.00 35 01/14/23 02:00 85 110/79 (89) 92 Vapotherm 15.00 35.00 01/14/23 01:00 79 01/14/23 00:00 86 109/75 (91) 92 Vapotherm 15.00 35.00 01/13/23 23:59 Vapotherm 15.00 35 01/13/23 23:00 82 114/68 (83) 92 Vapotherm 15.00 35.00 01/13/23 22:00 92 106/81 (87) 94 Vapotherm 15.00 35.00 01/13/23 21:29 95 Vapotherm 15.00 35 01/13/23 20:00 Vapotherm 15.00 35 01/13/23 20:00 87 104/71 (79) 93 Vapotherm 15.00 35.00 01/13/23 19:41 37.6 82 99/62 (74) 94 Vapotherm 15.00 35.00 01/13/23 19:26 36.7 01/13/23 19:00 86 01/13/23 18:30 97 Vapotherm 15.00 35 01/13/23 18:00 89 93/71 (78) 94 Trach Collar 35.00 01/13/23 17:00 90 95/58 (70) 93 Trach Collar 35.00 01/13/23 16:18 95 Vapotherm 15.00 35 01/13/23 16:06 36.6 01/13/23 16:00 87 83/58 (66) 93 Trach Collar 35.00 01/13/23 15:00 81 86/58 (67) 93 Trach Collar 35.00 01/13/23 14:26 97 Vapotherm 15.00 35 01/13/23 14:00 90 87/52 (64) 98 Trach Collar 35.00 01/13/23 13:00 87 102/70 (81) 94 Trach Collar 35.00 01/13/23 13:00 86 01/13/23 12:17 95 Vapotherm 15.00 35 01/13/23 12:00 74 103/66 (78) 98 Trach Collar 35.00 01/13/23 11:00 79 83/54 (64) 92 Trach Collar 35.00 01/13/23 10:46 37.2 01/13/23 10:10 95 Vapotherm 15.00 35 01/13/23 10:00 86 97/58 (71) 95 Trach Collar 35.00 01/13/23 09:00 87 91/55 (67) 92 Trach Collar 35.00 I & O 01/14/23 07:00 Intake Total 1050 ml Output Total 3050 ml Balance -2000 ml Capillary Refill : Less Than 3 Seconds General Appearance: No Apparent Distress, WD/WN, Chronically ill (post- hemorrhagic stroke May 2021), Other (pt doesn't respond to commands, can open her eyes) Neck: Other (Tracheostomy in place) Respiratory: No Accessory Muscle Use, No Respiratory Distress Cardiovascular: Regular Rate, Rhythm, No Murmur Gastrointestinal: soft, other (colostomy and PEG tubes in place) Extremity: No Pedal Edema Skin: Normal Color, Warm/Dry Other comments Genital: supra pubic catheter in place Results Lab Laboratory Tests 01/14/23 04:06: White Blood Count 7.4, Red Blood Count 3.38L, Hemoglobin 10.4L, Hematocrit 32L, Mean Corpuscular Volume 95, Mean Corpuscular Hemoglobin 31, Mean Corpuscular Hemoglobin Concent 33, Red Cell Distribution Width 12.9, Platelet Count 287, Mean Platelet Volume 10.4, Immature Granulocyte % (Auto) 0, Neutrophils (%) (Auto) 60, Lymphocytes (%) (Auto) 28, Monocytes (%) (Auto) 8, Eosinophils (%) (Auto) 4, Basophils (%) (Auto) 0, Neutrophils # (Auto) 4.4, Lymphocytes # (Auto) 2.1, Monocytes # (Auto) 0.6, Eosinophils # (Auto) 0.3, Basophils # (Auto) 0.0, Immature Granulocyte # (Auto) 0.0, Sodium Level 140, Potassium Level 3.8, Chloride Level 106, Carbon Dioxide Level 25, Anion Gap 9, Blood Urea Nitrogen 2L , Creatinine 0.48L, Estimat Glomerular Filtration Rate 116, BUN/Creatinine Ratio 4, Glucose Level 77, Calcium Level 8.5, Corrected Calcium 9.3, Phosphorus Level 2.5, Magnesium Level 1.7, Total Bilirubin 0.4, Aspartate Amino Transf (AST/SGOT) 11, Alanine Aminotransferase (ALT/SGPT) 11, Alkaline Phosphatase 73, Total Pro tein 5.8L, Albumin 3.0L Microbiology 01/13/23 C. difficile GDH Antigen & Toxins - Final, Complete 01/09/23 Gram Stain - Final, Complete 01/09/23 Sputum Culture - Final, Complete Pseudomonas aeruginosa Achromobacter xylosoxidans ssp Usual upper respiratory ginette 01/08/23 Blood Culture - Preliminary, Resulted 01/08/23 Urine Culture - Final, Complete Proteus mirabilis Mixed Bacterial Ginette Assessment/Plan Assessment/Plan Assessment/Plan S/P Hemorrhagic Stroke in May of 2021 Venous Insufficiency Gastrostomy tube The patient's was not at bedside this morning, but will be back by 11am to be present when she is taken back for her john-cath insertion and gastrostomy tube exchange. Lovenox was held and no tube feeds have been given in preparation. MARCIA QUARLES DO 01/14/23 1057: Subjective Time Seen by a Provider: 10:17 Subjective/Events-last exam Pt seen and examined, no changes. Nurse states Lovenox held. Review of Systems ROS - unable to obtain, patient is aphasic Objective Exam General Appearance: No Apparent Distress, Chronically ill (post-hemorrhagic stroke May 2021), Other (pt doesn't respond to commands, can open her eyes) Neck: Other (Tracheostomy in place) Respiratory: No Accessory Muscle Use, No Respiratory Distress Cardiovascular: Regular Rate, Rhythm, No Murmur Gastrointestinal: soft, other (colostomy and PEG tubes in place) Extremity: No Pedal Edema Skin: Normal Color, Warm/Dry Assessment/Plan Assessment/Plan Assessment/Plan S/P Hemorrhagic Stroke in May of 2021 Venous Insufficiency Gastrostomy tube Plan for john-cath insertion and gastrostomy tube exchange. Lovenox was held and no tube feeds have been given in preparation. Supervisory-Addendum Brief Verification & Attestation Participated in pt care: history, MDM, physical Personally performed: exam, history, MDM, supervision of care Care discussed with: Medical Student Procedures: n/a Verification and Attestation of Medical Student E/M Service A medical student performed and documented this service. I then reviewed and verified all information documented by the medical student and made modifications to such information, when appropriate. I personally performed a physical exam, medical decision making and then discussed any differences between the notes and made revisions as necessary to create one note. Marcia Quarles , 01/14/23 , 10:57 MAYTE NICK Jan 14, 2023 08:51 MARCIA QUARLES DO Jan 14, 2023 10:57
[2023-01-14] MEDS: LevETIRAcetam 500 MG/ 5 ML UDC ORAL SOLN PEG SCH ×2 (09:11→20:03)
[2023-01-14] MEDS: BACLOFEN 10 MG TABLET PEG SCH ×2 (09:11→20:03)
[2023-01-14] MEDS: POTASSIUM BICARB 20 MEQ effervescent TABLET PEG SCH ×3 (09:11→20:03)
[2023-01-14] MEDS: DOCUSATE SODIUM 100 MG/10 ML UDC ORAL SOLN PEG SCH ×2 (09:12→20:12)
[2023-01-14] MEDS ORDERED: HEParin (CENTRAL IV FLUSH) 500 UNIT/5 ML SYR ONE (10:15)
[2023-01-14] MEDS ORDERED: LIDOCAINE 2% w/EPI 1:100,000 20 ML VIAL ONE (10:15)
[2023-01-14] MEDS ORDERED: 0.9% SODIUM CHLORIDE PF INJ 20 ML VIAL ONE (10:16)
--- NOTE | 2023-01-14 10:53 | Progress Note ---
KATALINA PEREZ MD, RESIDENT 01/14/23 1053: Subjective HPI/CC On Admission Date Seen by Provider: Jan 14, 2023 Time Seen by Provider: 07:45 Subjective/Events-last exam Patient continues to do well today. No overnight events. Was able to stay off of the Levophed for 24 hours. Review of Systems Unable to obtain as patient is aphasic Objective Exam Vital Signs Vital Signs Date Time Temp Pulse Resp B/P (MAP) Pulse Ox O2 Delivery O2 Flow Rate FiO2 01/14/23 08:59 93 Vapotherm 15.00 35 01/14/23 07:58 36.5 73 89/56 (67) 01/12/23 21:00 18 Capillary Refill : Less Than 3 Seconds General Appearance: No Apparent Distress HEENT: PERRL/EOMI Neck: Normal Inspection, Other (Tracheostomy in place) Respiratory: Chest Non Tender, Lungs Clear, Normal Breath Sounds, No Accessory Muscle Use, No Respiratory Distress Cardiovascular: Regular Rate, Rhythm, No Edema, No Murmur Gastrointestinal: Normal Bowel Sounds, Non Tender, Soft, Other (PEG tube and colostomy in place, colostomy draining brown-colored stool) Neurologic/Psychiatric: Aphasia Skin: Normal Color, Warm/Dry Results/Procedures Lab Laboratory Tests 01/14/23 04:06 Patient resulted labs reviewed. Assessment/Plan Assessment and Plan Assess & Plan/Chief Complaint Patient is a 47-year-old female who was admitted for urinary tract infection. Is currently requiring Levophed for hypotension and ICU status. Diagnosis/Problems Diagnosis/Problems (1) Catheter-associated urinary tract infection Status: Acute Assessment & Plan: Urinary tract infection secondary to chronic indwelling suprapubic catheter. Patient appears quite comfortable. Plan: Urine culture growing Proteus Sputum culture growing Pseudomonas and Achromobacter Blood cultures growing staph hominis and epidermidis, this is likely a contaminant given that only 1 bottle of 3 was growing staph Follow-up urine culture, growing Proteus mirabilis so far. Susceptibilities pending. Switched antibiotics to meropenem yesterday to cover above organisms Discontinued vancomycin and cefepime Planning for port placement in the OR by surgery today Qualifiers: Qualified Codes: T83.510A - Infection and inflammatory reaction due to cystostomy catheter, initial encounter; N39.0 - Urinary tract infection, site not specified (2) Hypotension Status: Chronic Assessment & Plan: Patient has soft blood pressures at baseline in the 90s sy stolic. Patient has been off of the Levophed for 24 hours with stable blood pressures Plan: Continue monitoring off Levophed (3) Tracheostomy care Status: Chronic Assessment & Plan: Continue routine tracheostomy care (4) Uses feeding tube Status: Chronic Assessment & Plan: Patient continues to show concerns for aspiration with tube feeds. Continue holding tube feeds Surgery planning for PEG tube exchange today (5) Colostomy care Status: Chronic Assessment & Plan: Continue routine colostomy care. JOCELINE GONZALEZ DO 01/14/232111: Subjective Subjective/Events-last exam No major issues PEG change out and groshong port today Hypotension will be monitored Objective Exam General Appearance: No Apparent Distress, WD/WN, Chronically ill Respiratory: Lungs Clear, Normal Breath Sounds Cardiovascular: Regular Rate, Rhythm Assessment/Plan Assessment and Plan Assess & Plan/Chief Complaint Port placement and PEG change out KATALINA PEREZ MD, RESIDENT Jan 14, 2023 10:53 JOCELINE GONZALEZ DO Jan 14, 2023 21:12
[2023-01-14] MEDS ORDERED: KETAMINE 50 MG/5 ML SYRINGE ONE (11:03)
[2023-01-14] MEDS ORDERED: MIDAZOLAM INJ 2 MG/2 ML VIAL ONE ×2 (11:03→12:05)
[2023-01-14] MEDS ORDERED: GLYCOPYRROLATE INJ 0.2 MG/ML 2 ML VIAL ONE (11:36)
--- NOTE | 2023-01-14 12:56 | Diagnostic Imaging Report ---
INDICATION: Port placement. The hospital radiology department provided intraoperative imaging in support of an interventional procedure. No radiologist involvement and/or interpretation. Please reference the operating provider's procedure note. IMPRESSION: Intraprocedural technical imaging provided. Dictated by: Dictated on workstation # [id number]
--- NOTE | 2023-01-14 13:03 | Anesthesia-General Post-Op ---
MAC Patient Condition Mental Status/LOC: Same as Preop Cardiovascular: Satisfactory Nausea/Vomiting: Absent Respiratory: Satisfactory Pain: Controlled Complications: Absent Post Op Complications Complications None Follow Up Care/Instructions Patient Instructions None needed. Anesthesiology Discharge Order Discharge Order Patient was taken back to ICU with stable vital signs, no apparent adverse anesthesia problems. No complications reported per nursing. CAITIE FLETCHER DO Jan 14, 2023 13:03
[2023-01-14] MEDS: NS IV 1000 ML 1,000 ML IV SCH (15:44)
--- NOTE | 2023-01-14 17:38 | Tele-ICU Progress Note ---
Subjective Date Seen by a Provider: Jan 14, 2023 Time Seen by a Provider: 17:31 Subjective/Events-last exam called that pt now back to MICU status 47 yo F had been an ICU pt for urosepsis/septic shock, had been off pressors but now BP dropped an back on IV levo BP 80/50 Pt is s/p ICB which is has left her minimally responsive. has trach, ileostomy, suprapubic catheter, On IV meropenem, sputum has grown pseudomonas, urine has grown Proteus, BC have grow Staph hominis, epidermis WBC 7,4, CXR today shows mild cardiomegaly and mild congestion Sepsis Event Evaluation Height, Weight, BMI Height: '" Weight: lbs. oz. kg; BMI Method: Exam Exam Patient acknowledged, consented, and participated in this virtual visit which was conducted using real time audio/video Vital Signs Date Time Temp Pulse Resp B/P (MAP) Pulse Ox O2 Delivery O2 Flow Rate FiO2 01/14/23 17:28 75 81/51 01/14/23 16:09 36.6 01/14/23 16:00 90 17 112/72 (85) 95 Vapotherm 15.00 35.00 01/14/23 15:26 95 Vapotherm 15.00 35 01/14/23 13:15 85 87/52 (64) 92 Vapotherm 15.00 35.00 01/14/23 13:00 85 01/14/23 12:30 86/56 (66) Vapotherm 15.00 35.00 01/14/23 08:59 93 Vapotherm 15.00 35 01/14/23 07:58 36.5 73 89/56 (67) Vapotherm 15.00 35.00 01/14/23 07:28 Vapotherm 15.00 35 01/14/23 07:00 70 01/14/23 04:00 Vapotherm 15.00 35 01/14/23 04:00 76 95/60 (72) Vapotherm 15.00 35.00 01/14/23 03:45 95 Vapotherm 15.00 35 01/14/23 02:00 85 110/79 (89) 92 Vapotherm 15.00 35.00 01/14/23 01:00 79 01/14/23 00:00 86 109/75 (91) 92 Vapotherm 15.00 35.00 01/13/23 23:59 Vapotherm 15.00 35 01/13/23 23:00 82 114/68 (83) 92 Vapotherm 15.00 35.00 01/13/23 22:00 92 106/81 (87) 94 Vapotherm 15.00 35.00 01/13/23 21:29 95 Vapotherm 15.00 35 01/13/23 20:00 Vapotherm 15.00 35 01/13/23 20:00 87 104/71 (79) 93 Vapotherm 15.00 35.00 01/13/23 19:41 37.6 82 99/62 (74) 94 Vapotherm 15.00 35.00 01/13/23 19:26 36.7 01/13/23 19:00 86 01/13/23 18:30 97 Vapotherm 15.00 35 01/13/23 18:00 89 93/71 (78) 94 Trach Collar 35.00 I & O 01/14/23 07:00 Intake Total 1050 ml Output Total 3050 ml Balance -2000 ml Height & Weight Height: '" Weight: lbs. oz. kg; BMI Method: General Appearance: No Apparent Distress, Chronically ill (post-hemorrhagic stroke May 2021), Other (pt doesn't respond to commands, can open her eyes) HEENT: PERRL/EOMI Neck: Other (Tracheostomy in place, site looks ok) Respiratory: Lungs Clear, No Accessory Muscle Use, No Respiratory Distress Cardiovascular: Regular Rate, Rhythm, No Murmur Capillary Refill: Less Than 3 Seconds Gastrointestinal: normal bowel sounds, non tender, soft, other (colostomy and PEG tubes in place, sites look ok) Extremity: No Pedal Edema, Other (colostomy looks ok) Neurologic/Psychiatric: Aphasia Skin: Normal Color, Warm/Dry Results Lab Laboratory Tests 01/13/23 04:17 01/14/23 04:06 Assessment/Plan Assessment/Plan urosepsis with septic shock, will continue on IV pressors for now, pt full code will give 500 mL LR and repeat if no increase in BP spoke to storeperson: Critically Ill Patient Time spent with patient (mins): 25 TED NEWTON MD Jan 14, 2023 17:38
[2023-01-14] MEDS: LACTATED RINGERS 1,000 ML 1,000 ML IV SCH (17:58)
[2023-01-15] MEDS: RT-Ipratropium/Albuterol NEB 3 ML VIAL IH SCH ×4 (01:50→19:38)
[2023-01-15] MEDS: ACETAMINOPHEN 325 MG TABLET PO PRN (03:32)
[2023-01-15] MEDS: MEROPENEM 1,000 MG/NS 100 ML IVPB IV SCH ×6 (03:55→20:17)
[2023-01-15] MEDS: LACTATED RINGERS 1,000 ML 1,000 ML IV SCH ×2 (04:27→17:24)
[2023-01-15 04:50] LABS: BASOPHILS % (AUTO) 0 % (0-10); EOSINOPHILS # (AUTO) 0.2 10^3/uL (0.0-0.3); EOSINOPHILS % (AUTO) 2 % (0-10); HEMATOCRIT 32 % (35-52); HEMOGLOBIN 10.2 g/dL (11.5-16.0); LYMPHOCYTES # (AUTO) 2.6 10^3/uL (1.0-4.0); LYMPHOCYTES % (AUTO) 31 % (12-44); MEAN CORPUSCULAR HEMOGLOBIN 30 pg (25-34); MEAN CORPUSCULAR HGB CONC 32 g/dL (32-36); MEAN CORPUSCULAR VOLUME 94 fL (80-99); MEAN PLATELET VOLUME 10.8 fL (9.0-12.2); MONOCYTES # (AUTO) 0.6 10^3/uL (0.0-1.0); MONOCYTES % (AUTO) 7 % (0-12); NEUTROPHILS # (AUTO) 4.9 10^3/uL (1.8-7.8); NEUTROPHILS % (AUTO) 59 % (42-75); PLATELET COUNT 340 10^3/uL (130-400); WHITE BLOOD COUNT 8.3 10^3/uL (4.3-11.0)
[2023-01-15 05:24] LABS: BILIRUBIN,TOTAL 0.4 MG/DL (0.1-1.0); CALCIUM 8.4 MG/DL (8.5-10.1); CREATININE SERUM 0.48 MG/DL (0.60-1.30); MAGNESIUM 1.8 MG/DL (1.6-2.4); PHOSPHORUS 2.5 MG/DL (2.3-4.7); POTASSIUM 4.1 MMOL/L (3.6-5.0); TOTAL PROTEIN 5.9 GM/DL (6.4-8.2)
[2023-01-15] MEDS: NS IV 1000 ML 1,000 ML IV SCH ×2 (05:31→21:25)
[2023-01-15] MEDS: POTASSIUM CL 10MEQ/50ML IVPB 50 ML IV SCH (05:35)
[2023-01-15] MEDS: MAGNESIUM 1 GM/100 ML IVPB 100 ML IV SCH ×2 (05:35→05:51)
[2023-01-15] MEDS: POTASSIUM CHLORIDE 20 MEQ TABLET PO SCH (05:35)
[2023-01-15] MEDS ORDERED: MAGNESIUM 1 GM/100 ML IVPB 200 ML IV ONE (05:43)
--- NOTE | 2023-01-15 07:27 | Diagnostic Imaging Report ---
INDICATION: Dyspnea Frontal chest obtained at 0157 a.m. and compared to 01/14/2023. Tracheostomy tube is unchanged. HAIRMASTERS MANAGER shunt catheter is unchanged. There is a new left-sided Port-A-Cath, it follows an atypical course and may be within the azygos vein. Correlate with a lateral view. There is no pneumothorax or pleural fluid. There is some central vascular congestion. IMPRESSION: New left-sided Port-A-Cath is seen entering via the left subclavian vein. It follows an typical course and may be within the azygos vein. Correlate with a lateral view. There is no pneumothorax or pleural fluid. There is some central vascular congestion. Dictated by: Dictated on workstation # [id number]
--- NOTE | 2023-01-15 07:38 | Progress Note - Surgery ---
MAYTE NICK 01/15/23 0738: Subjective Date Seen by a Provider: Jan 15, 2023 Time Seen by a Provider: 07:15 Subjective/Events-last exam Per nursing, Jazzmine Baron had low blood pressure overnight and is currently requiring levophed; other than her pressure, she recovered fine after surgery. Review of Systems ROS - unable to obtain, patient is aphasic Objective Exam Vital Signs Date Time Temp Pulse Resp B/P (MAP) Pulse Ox O2 Delivery O2 Flow Rate FiO2 01/15/23 06:22 96 Vapotherm 15.00 35 01/15/23 06:00 66 15 123/79 (94) Vapotherm 15.00 35.00 01/15/23 05:00 62 15 124/77 (93) 100 Vapotherm 15.00 35.00 01/15/23 04:27 37.3 01/15/23 04:00 66 18 123/77 (91) 95 Vapotherm 15.00 35.00 01/15/23 03:35 38.1 01/15/23 03:32 38.1 01/15/23 03:00 67 17 122/78 (93) 95 Vapotherm 15.00 35.00 01/15/23 02:00 82 22 122/85 (98) 94 Vapotherm 15.00 35.00 01/15/23 01:51 96 Vapotherm 15.00 35 01/15/23 01:00 79 01/15/23 01:00 79 24 122/79 (96) 94 Vapotherm 15.00 35.00 01/15/23 00:00 77 20 110/90 (96) 95 Vapotherm 15.00 35.00 01/14/23 23:42 37.2 01/14/23 23:00 70 18 116/72 (87) 96 Vapotherm 15.00 35.00 01/14/23 22:00 68 16 110/71 (83) 97 Vapotherm 15.00 35.00 01/14/23 21:07 96 Vapotherm 15.00 35 01/14/23 21:00 89 28 115/82 (100) 96 Vapotherm 15.00 35.00 01/14/23 21:00 Vapotherm 15.00 35 01/14/23 20:00 72 18 121/69 (87) 97 Vapotherm 15.00 35.00 01/14/23 19:45 748 22 113/78 (97) 97 Vapotherm 15.00 35.00 01/14/23 19:30 84 21 119/72 (101) 97 Vapotherm 15.00 35.00 01/14/23 19:28 36.4 92 122/86 (98) 95 Vapotherm 15.00 35.00 01/14/23 19:00 75 01/14/23 19:00 75 23 127/90 (99) 97 Vapotherm 15.00 35.00 01/14/23 18:47 68 140/84 01/14/23 18:39 97 Vapotherm 15.00 35 01/14/23 18:14 60 126/82 01/14/23 18:00 58 19 120/91 (101) 98 Vapotherm 15.00 35.00 01/14/23 17:36 37.0 01/14/23 17:28 75 81/51 01/14/23 17:00 81 17 112/78 (89) 97 Vapotherm 15.00 35.00 01/14/23 16:09 36.6 01/14/23 16:00 90 17 112/72 (85) 95 Vapotherm 15.00 35.00 01/14/23 15:26 95 Vapotherm 15.00 35 01/14/23 13:15 85 87/52 (64) 92 Vapotherm 15.00 35.00 01/14/23 13:00 85 01/14/23 12:30 86/56 (66) Vapotherm 15.00 35.00 01/14/23 08:59 93 Vapotherm 15.00 35 01/14/23 07:58 36.5 73 89/56 (67) Vapotherm 15.00 35.00 I & O 01/15/23 07:00 Intake Total 1020 ml Output Total 2290 ml Balance -1270 ml Capillary Refill : Less Than 3 Seconds General Appearance: No Apparent Distress, WD/WN, Chronically ill (post- hemorrhagic stroke May 2021) Neck: Other (Tracheostomy in place, site looks ok) Respiratory: Lungs Clear, Normal Breath Sounds, No Accessory Muscle Use, No Respiratory Distress Cardiovascular: Regular Rate, Rhythm, No Murmur Gastrointestinal: non tender, soft, other (colostomy and PEG tubes in place, sites look ok) Extremity: No Pedal Edema Neurologic/Psychiatric: Aphasia Other comments Genitourinary: suprapubic catheter in place Results Lab Laboratory Tests 01/15/23 03:38: White Blood Count 8.3, Red Blood Count 3.35L, Hemoglobin 10.2L, Hematocrit 32L, Mean Corpuscular Volume 94, Mean Corpuscular Hemoglobin 30, Mean Corpuscular Hemoglobin Concent 32, Red Cell Distribution Width 12.7, Platelet Count 340, Mean Platelet Volume 10.8, Immature Granulocyte % (Auto) 0, Neutrophils (%) (Auto) 59, Lymphocytes (%) (Auto) 31, Monocytes (%) (Auto) 7, Eosinophils (%) (Auto) 2, Basophils (%) (Auto) 0, Neutrophils # (Auto) 4.9, Lymphocytes # (Auto) 2.6, Monocytes # (Auto) 0.6, Eosinophils # (Auto) 0.2, Basophils # (Auto) 0.0, Immature Granulocyte # (Auto) 0.0, Sodium Level 136, Potassium Level 4.1, Chloride Level 103, Carbon Dioxide Level 24, Anion Gap 9, Blood Urea Nitrogen 3L , Creatinine 0.48L, Estimat Glomerular Filtration Rate 116, BUN/Creatinine Ratio 6, Glucose Level 88, Calcium Level 8.4L, Corrected Calcium 9.2, Phosphorus Level 2.5, Magnesium Level 1.8, Total Bilirubin 0.4, Aspartate Amino Transf (AST/SGOT) 11, Alanine Aminotransferase (ALT/SGPT) 11, Alkaline Phosphatase 73, Total Protein 5.9L, Albumin 3.0L Microbiology 01/13/23 C. 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 There were no problems surgically. The sites look ok today. MARCIA QUARLES DO 01/15/23 0504: Subjective Time Seen by a Provider: 13:05 Subjective/Events-last exam Pt seen and examined, she looked fine when I saw her and was at bedside. Review of Systems ROS - unable to obtain, patient is aphasic Objective Exam General Appearance: No Apparent Distress, Chronically ill (post-hemorrhagic stroke May 2021) Neck: Other (Tracheostomy in place, site looks ok) Respiratory: Lungs Clear, Normal Breath Sounds, No Accessory Muscle Use, No Respiratory Distress Cardiovascular: Regular Rate, Rhythm, No Murmur Gastrointestinal: non tender, soft, other (colostomy and PEG tubes in place, sites look ok) Skin: Other (incision c/d/i and port accessed) Assessment/Plan Assessment/Plan Assessment/Plan S/P Hemorrhagic Stroke in May of 2021 Venous Insufficiency Juanita-cath insertion and gastrostomy tube exchange occured yesterday. There were no problems surgically. The sites look ok today. Supervisory-Addendum Brief Verification & Attestation Participated in pt care: history, MDM, physical Personally performed: exam, history, MDM, supervision of care Care discussed with: Medical Student Procedures: n/a Verification and Attestation of Medical Student E/M Service A medical student performed and documented this service. I then reviewed and verified all information documented by the medical student and made modifications to such information, when appropriate. I personally performed a physical exam, medical decision making and then discussed any differences between the notes and made revisions as necessary to create one note. Marcia Quarles , 01/15/23 , 16:34 MAYTE NICK Jan 15, 2023 07:38 MARCIA QUARLES DO Jan 15, 2023 16:34
[2023-01-15] MEDS: LevETIRAcetam 500 MG/ 5 ML UDC ORAL SOLN PEG SCH ×2 (08:14→20:19)
[2023-01-15] MEDS: BACLOFEN 10 MG TABLET PEG SCH ×2 (08:14→20:19)
[2023-01-15] MEDS: POTASSIUM BICARB 20 MEQ effervescent TABLET PEG SCH ×3 (08:15→20:19)
[2023-01-15] MEDS: DOCUSATE SODIUM 100 MG/10 ML UDC ORAL SOLN PEG SCH ×2 (08:15→20:10)
--- NOTE | 2023-01-15 09:24 | Progress Note ---
KATALINA PEREZ MD, RESIDENT 01/15/23 0924: Subjective HPI/CC On Admission Date Seen by Provider: Jan 15, 2023 Time Seen by Provider: 07:45 Subjective/Events-last exam Patient appears comfortable at bedside. Had port placement and PEG tube exchange completed yesterday. Per the nurse, PEG tube appears to be working well and is not showing any signs of backing up into the trach. Patient did spike a fever overnight and around 2 or 3 AM, this resolved with Tylenol. She did require Levophed as well as she was having soft blood pressures yesterday however this was not improving with fluids. Thus Levophed was restarted. Review of Systems Unable to obtain as patient is aphasic Objective Exam Vital Signs Vital Signs Date Time Temp Pulse Resp B/P (MAP) Pulse Ox O2 Delivery O2 Flow Rate FiO2 01/15/23 07:43 63 117/77 01/15/23 07:41 37.1 01/15/23 06:22 96 Vapotherm 15.00 35 01/15/23 06:00 15 Capillary Refill : Less Than 3 Seconds General Appearance: No Apparent Distress HEENT: Normal ENT Inspection, Other (Tracheostomy in place) Neck: Normal Inspection, Supple Respiratory: Chest Non Tender, Lungs Clear, Normal Breath Sounds, No Accessory Muscle Use, No Respiratory Distress Cardiovascular: Regular Rate, Rhythm, No Edema, No Murmur, Other (Port in place on left side of chest with some bruising around it) Gastrointestinal: Normal Bowel Sounds, Non Tender, Soft, Other (Colostomy appears to be draining stool, no concerning findings, PEG tube in place) Neurologic/Psychiatric: Aphasia Skin: Normal Color, Warm/Dry, Other ([place] color in face) Results/Procedures Lab Laboratory Tests 01/15/23 03:38 Patient resulted labs reviewed. Assessment/Plan Assessment and Plan Assess & Plan/Chief Complaint Patient is a 47-year-old female who was admitted for urinary tract infection. Is currently requiring Levophed for hypotension and ICU status. Diagnosis/Problems Diagnosis/Problems (1) Catheter-associated urinary tract infection Status: Acute Assessment & Plan: Urinary tract infection secondary to chronic indwelling suprapubic catheter. Patient appears quite comfortable. Plan: Urine culture grew Proteus Sputum culture grew Pseudomonas and Achromobacter Blood cultures grew staph hominis and epidermidis, this is likely a contaminant given that only 1 bottle of 3 was growing staph Continue meropenem Port in place, okay to use Patient febrile last night requiring Tylenol, repeat chest x-ray looks normal. We will reculture blood today. Qualifiers: Qualified Codes: T83.510A - Infection and inflammatory reaction due to cystostomy catheter, initial encounter; N39.0 - Urinary tract infection, site not specified (2) Hypotension Status: Chronic Assessment & Plan: Patient has soft blood pressures at baseline in the 90s systolic. Had unstable blood pressures yesterday not responding to fluids. Plan: Restarted Levophed (3) Tracheostomy care Status: Chronic Assessment & Plan: Continue routine tracheostomy care (4) Uses feeding tube Status: Chronic Assessment & Plan: PEG tube exchanged yesterday. Does not seem to show any backup with tube feeds. Continue tube feeds as tolerated (5) Colostomy care Status: Chronic Assessment & Plan: Continue routine colostomy care. JOCELINE GONZALEZ DO 01/15/231948: Subjective Subjective/Events-last exam Patient about the same Low blood pressure requiring Levophed Port functioning well PEG tube functioning well Objective Exam General Appearance: No Apparent Distress, WD/WN, Chronically ill Respiratory: Lungs Clear Cardiovascular: Regular Rate, Rhythm Assessment/Plan Assessment and Plan Assess & Plan/Chief Complaint Patient remains semicomatose Low blood pressure requiring Levophed once again PEG tube and port in place KATALINA PEREZ MD, RESIDENT Jan 15, 2023 09:24 JOCELINE GONZALEZ DO Jan 15, 2023 19:49
--- NOTE | 2023-01-15 09:29 | Tele-ICU Progress Note ---
Subjective Date Seen by a Provider: Jan 15, 2023 Time Seen by a Provider: 09:29 Subjective/Events-last exam (Tele-ICU Physician , Progress Note ) Service provided via interactive audio and video telecommunications E-CARE system to a patient admitted to ICU bed in [facility]. Patient is seen today due to persistent need of ICU care Available chart/ vitals / labs / Images reviewed Video assessment done using teleICU camera, rest of exam as per RN Discussed with RN Events overnight : Afebrile hemodynamically stable Respiratory - 6l TC I/O + Drips: ns 70 Pressors- LEVO OFF since 8 am Hospital course: 01/08) 47/F admitted from ED w/ urosepsis (01/10) Tx to ICU- Hypotension, Hypoxia-concern for aspiration of tubefeeds 01/11- 6L TC , levo 0.45 01/13 - LEVO OFF , 8 L o2 01/14- on VT 15L 35 % , s/p exchange her PEG tube with a Gastrostomy tube--> back on LEVO 01/15- on VT 15L 35 % . LEVO OFF since 8 am A/P Sepsis , with shock ( baseline SBP 90s) -LEVO OFF since 8 am today Hypoxia ( S/p tracheostomy - on VT 15L 35 % - copious secretion reported - with mucous plugging- seems better with high humiduty with VT - ? mucomist , -cont nebs on scheduled regiment , try CHEST PT -PSA in sputum and Achromobacter xylosoxidans- on MEROPENEM ( based on sens) ( aspiration of TF were suspected at some point and now s/p s/p exchange her PEG tube with a Gastrostomy tube UTI Proteus mirabilis in urine cx ( suprapubic indwelling catheterin place- as per records - suprapubic catheter changed out 3 times in the last week.TUBE COREMAKER ) HypoK and hypoMg - replace Hx of Nontraumatic Hemmorhagic Stroke - s/p tracheostomy colostomy in place / PEG in place - SBO with perf viscvus 05/2022 , s/p subtotal colectomy with partial omentectomy and iliostomy =PEG tube was checked with KUB with contrast 01/13 Nutrition - cont TF H/o Sx - on keppra Diarrhea- better - c diff neg - stop reglan Lines : midline right PICC - unsucsessful , PORT 01/14 , (Central Line Necessity Reviewed) Perez: suprapubic indwelling catheter OG: Nutrition: PEG TF Analgesia: Anxiety/ delirium VTE Prophylaxis: jose roberto 40 Stress Ulcer Prophylaxis: pepcid iv Plans in collaboration with bedside consultants and IM MDs. Discussed with RN to reach out if any questions or concerns Case and care daily discussed on multidisciplinary rounds ( RN, PharmD, Heater Operator , Respiratory Therapy, collision worker ) A total of 31 minutes of critical care time was devoted to this patient today, required to treat and/or prevent further deterioration of critical care condition ( as above ) . I am remotely monitoring this patient from another state. I am unable to do the bedside exam, and history/physical and pertinent information is taken from other notes in the computer and bedside staff. Sepsis Event Evaluation Height, Weight, BMI Height: '" Weight: lbs. oz. kg; BMI Method: Exam Exam Patient acknowledged, consented, and participated in this virtual visit which was conducted using real time audio/video Vital Signs Date Time Temp Pulse Resp B/P (MAP) Pulse Ox O2 Delivery O2 Flow Rate FiO2 01/15/23 07:43 63 117/77 01/15/23 07:41 37.1 01/15/23 06:22 96 Vapotherm 15.00 35 01/15/23 06:00 66 15 123/79 (94) Vapotherm 15.00 35.00 01/15/23 05:00 62 15 124/77 (93) 100 Vapotherm 15.00 35.00 01/15/23 04:27 37.3 01/15/23 04:00 66 18 123/77 (91) 95 Vapotherm 15.00 35.00 01/15/23 03:35 38.1 01/15/23 03:32 38.1 01/15/23 03:00 67 17 122/78 (93) 95 Vapotherm 15.00 35.00 01/15/23 02:00 82 22 122/85 (98) 94 Vapotherm 15.00 35.00 01/15/23 01:51 96 Vapotherm 15.00 35 01/15/23 01:00 79 01/15/23 01:00 79 24 122/79 (96) 94 Vapotherm 15.00 35.00 01/15/23 00:00 77 20 110/90 (96) 95 Vapotherm 15.00 35.00 01/14/23 23:42 37.2 01/14/23 23:00 70 18 116/72 (87) 96 Vapotherm 15.00 35.00 01/14/23 22:00 68 16 110/71 (83) 97 Vapotherm 15.00 35.00 01/14/23 21:07 96 Vapotherm 15.00 35 01/14/23 21:00 89 28 115/82 (100) 96 Vapotherm 15.00 35.00 01/14/23 21:00 Vapotherm 15.00 35 01/14/23 20:00 72 18 121/69 (87) 97 Vapotherm 15.00 35.00 01/14/23 19:45 748 22 113/78 (97) 97 Vapotherm 15.00 35.00 01/14/23 19:30 84 21 119/72 (101) 97 Vapotherm 15.00 35.00 01/14/23 19:28 36.4 92 122/86 (98) 95 Vapotherm 15.00 35.00 01/14/23 19:00 75 01/14/23 19:00 75 23 127/90 (99) 97 Vapotherm 15.00 35.00 01/14/23 18:47 68 140/84 01/14/23 18:39 97 Vapotherm 15.00 35 01/14/23 18:14 60 126/82 01/14/23 18:00 58 19 120/91 (101) 98 Vapotherm 15.00 35.00 01/14/23 17:36 37.0 01/14/23 17:28 75 81/51 01/14/23 17:00 81 17 112/78 (89) 97 Vapotherm 15.00 35.00 01/14/23 16:09 36.6 01/14/23 16:00 90 17 112/72 (85) 95 Vapotherm 15.00 35.00 01/14/23 15:26 95 Vapotherm 15.00 35 01/14/23 13:15 85 87/52 (64) 92 Vapotherm 15.00 35.00 01/14/23 13:00 85 01/14/23 12:30 86/56 (66) Vapotherm 15.00 35.00 I & O 01/15/23 07:00 Intake Total 1020 ml Output Total 2290 ml Balance -1270 ml Height & Weight Height: '" Weight: lbs. oz. kg; BMI Method: General Appearance: No Apparent Distress HEENT: Normal ENT Inspection, Other (Tracheostomy in place) Neck: Normal Inspection, Supple Respiratory: Chest Non Tender, Lungs Clear, Normal Breath Sounds, No Accessory Muscle Use, No Respiratory Distress Cardiovascular: Regular Rate, Rhythm, No Edema, No Murmur, Other (Port in place on left side of chest with some bruising around it) Capillary Refill: Less Than 3 Seconds Gastrointestinal: non tender, soft, other (colostomy and PEG tubes in place, sites look ok) Extremity: No Pedal Edema Neurologic/Psychiatric: Aphasia Skin: Normal Color, Warm/Dry, Other ([place] color in face) Results Lab Laboratory Tests 01/14/23 04:06 01/15/23 03:38 Assessment/Plan Assessment/Plan 1 AMBERLY FRIEND MD Jan 15, 2023 09:29
[2023-01-15] MEDS ORDERED: HYPOCHLOROUS ACID/NaCl WOUND SOLN 250 ML IR SCH (11:30)
[2023-01-15] MEDS: NOREPINEPHRINE 8 MG/250 ML 250 ML IV SCH ×2 (11:38→18:09)
--- NOTE | 2023-01-15 11:44 | Wound Care Assessment ---
Wound Care Assessment Date Seen by Provider: Jan 15, 2023 Time Seen by Provider: 10:30 Chief Complaint 1. L. thigh blister 2. Sacral pressure ulcer HPI This 47 year old lady was admitted with presumptive uroepsis. She has a h/o hemorrhagic CVA with resulting hemiplegia and aphasia with contractures and severe immobility. She does also have PEG, tracheostomy and SP catheter. She does have a blister to her lft thigh that is likely related to trauma from catheter tubing. I did drain this today and will dress with silver alginate and BFD daily. She also has full thickness ulceration of gluteal cleft and right buttock which is pressure and moisture related (due to incontinence). She is a complex lady with moderate PEM, immobility syndrome and chronic anemia as well. Hemorrhagic CVA with resulting hemiparalysis, aphasia and contractures. Moderate PEM, chronic anemia, urosepsis requiring pressor support Smoking Status: Unknown if Ever Smoked Recreational Drug Use: No Alcohol Use: Denies Use Review of Systems Other systems Unable to obtain ROS due to aphasia Exam Vital Signs Date Time Temp Pulse Resp B/P (MAP) Pulse Ox O2 Delivery O2 Flow Rate FiO2 01/15/23 11:24 36.3 01/15/23 10:37 96 Vapotherm 20.00 35 01/15/23 09:00 89 22 Capillary Refill : Less Than 3 Seconds General Appearance: WD/WN, no apparent distress HEENT: other (Tracheostomy) Respiratory: no respiratory distress, no accessory muscle use Extremities: no pedal edema, other (Contractures of all limbs) Neurologic/Psychiatric: other (Awake, aphasia, non-communicative) Skin: normal color Skin Problem Location: torso, lower extremities Skin Character: bullous (Left anterior thigh), erythema (Sacrum), rash (candidal skin rash in skin folds) Results Laboratory Tests 01/15/23 03:38: White Blood Count 8.3, Red Blood Count 3.35L, Hemoglobin 10.2L, Hematocrit 32L, Mean Corpuscular Volume 94, Mean Corpuscular Hemoglobin 30, Mean Corpuscular Hemoglobin Concent 32, Red Cell Distribution Width 12.7, Platelet Count 340, Mean Platelet Volume 10.8, Immature Granulocyte % (Auto) 0, Neutrophils (%) (Auto) 59, Lymphocytes (%) (Auto) 31, Monocytes (%) (Auto) 7, Eosinophils (%) (Auto) 2, Basophils (%) (Auto) 0, Neutrophils # (Auto) 4.9, Lymphocytes # (Auto) 2.6, Monocytes # (Auto) 0.6, Eosinophils # (Auto) 0.2, Basophils # (Auto) 0.0, Immature Granulocyte # (Auto) 0.0, Sodium Level 136, Potassium Level 4.1, Chloride Level 103, Carbon Dioxide Level 24, Anion Gap 9, Blood Urea Nitrogen 3L , Creatinine 0.48L, Estimat Glomerular Filtration Rate 116, BUN/Creatinine Ratio 6, Glucose Level 88, Calcium Level 8.4L, Corrected Calcium 9.2, Phosphorus Level 2.5, Magnesium Level 1.8, Total Bilirubin 0.4, Aspartate Amino Transf (AST/SGOT) 11, Alanine Aminotransferase (ALT/SGPT) 11, Alkaline Phosphatase 73, Total Protein 5.9L, Albumin 3.0L Microbiology 01/13/23 C. difficile GDH Antigen & Toxins - Final, Complete 01/09/23 Gram Stain - Final, Complete 01/09/23 Sputum Culture - Final, Complete Pseudomonas aeruginosa Achromobacter xylosoxidans ssp Usual upper respiratory ginette 01/08/23 Blood Culture - Final, Complete 01/08/23 Urine Culture - Final, Complete Proteus mirabilis Mixed Bacterial Ginette Microbiology 01/13/23 C. difficile GDH Antigen & Toxins - Final, Complete Assessment/Plan/Dx Assessment: 1. Non pressure ulcer Left anterior thigh (catheter trauma likely) 2. Stage 3 pressure ulcer sacrum/right buttock 3. Moisture associated dermatitis from incontinence 4. 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 Moderate PEM 6. Anemia of chronic disease 7. Candidal dermatitis of skin folds Plan: 1. Cleanse daily with Vashe. Silver alginate hydrofiber to wound bed. Secure with Allevyn BFD and change daily 2. Cleanse daily with Vashe. Miconazole and barrier to periwound. Silver alginate hydrofiber to wound bed. Allevyn BFD daily and prn for soiling. Frequent changes and off loading indicated 3. Good toilet hygiene 4. Frequent positional changes 5. Per primary team 6. Per primary team 7. Miconazole powder ordered AMMY NEGRETE MD Jan 15, 2023 11:44
[2023-01-15] MEDS: ENOXAPARIN 40 MG/0.4 ML SYRINGE SC SCH (11:45)
[2023-01-15] MEDS: MICONAZOLE 2% POWDER 90 GM TOP SCH (20:19)
[2023-01-16] MEDS: RT-Ipratropium/Albuterol NEB 3 ML VIAL IH SCH ×4 (02:35→21:22)
[2023-01-16] MEDS: MEROPENEM 1,000 MG/NS 100 ML IVPB IV SCH ×4 (03:52→13:04)
[2023-01-16 04:40] LABS: BASOPHILS % (AUTO) 1 % (0-10); EOSINOPHILS # (AUTO) 0.3 10^3/uL (0.0-0.3); EOSINOPHILS % (AUTO) 4 % (0-10); HEMATOCRIT 30 % (35-52); HEMOGLOBIN 10.1 g/dL (11.5-16.0); LYMPHOCYTES # (AUTO) 2.2 10^3/uL (1.0-4.0); LYMPHOCYTES % (AUTO) 27 % (12-44); MEAN CORPUSCULAR HEMOGLOBIN 31 pg (25-34); MEAN CORPUSCULAR HGB CONC 33 g/dL (32-36); MEAN CORPUSCULAR VOLUME 93 fL (80-99); MEAN PLATELET VOLUME 9.4 fL (9.0-12.2); MONOCYTES # (AUTO) 0.6 10^3/uL (0.0-1.0); MONOCYTES % (AUTO) 7 % (0-12); NEUTROPHILS # (AUTO) 4.9 10^3/uL (1.8-7.8); NEUTROPHILS % (AUTO) 61 % (42-75); PLATELET COUNT 302 10^3/uL (130-400); WHITE BLOOD COUNT 8.1 10^3/uL (4.3-11.0)
[2023-01-16 05:03] LABS: BILIRUBIN,TOTAL 0.2 MG/DL (0.1-1.0); CALCIUM 8.1 MG/DL (8.5-10.1); CREATININE SERUM 0.49 MG/DL (0.60-1.30); MAGNESIUM 1.6 MG/DL (1.6-2.4); PHOSPHORUS 2.3 MG/DL (2.3-4.7); POTASSIUM 3.6 MMOL/L (3.6-5.0); TOTAL PROTEIN 5.6 GM/DL (6.4-8.2)
[2023-01-16] MEDS: MAGNESIUM 1 GM/100 ML IVPB 100 ML IV SCH ×4 (05:10→08:42)
[2023-01-16] MEDS: POTASSIUM CHLORIDE 20 MEQ TABLET PO SCH (05:10)
[2023-01-16] MEDS: POTASSIUM CL 10MEQ/50ML IVPB 50 ML IV SCH ×5 (05:10→10:22)
[2023-01-16] MEDS ORDERED: POTASSIUM CL 10MEQ/50ML IVPB 200 ML IV ONE (05:21)
[2023-01-16] MEDS ORDERED: MAGNESIUM 1 GM/100 ML IVPB 400 ML IV ONE (05:21)
--- NOTE | 2023-01-16 08:33 | Tele-ICU Progress Note ---
Subjective Date Seen by a Provider: Jan 16, 2023 Time Seen by a Provider: 08:21 Subjective/Events-last exam (Tele-ICU Physician , consultation as per request of PCP Service provided via interactive audio and video telecommunications E-CARE system to a patient admitted to ICU bed in [facility]. Available chart/ vitals / labs / Images reviewed H&P is from ER notes Patient's information available about PMH, Shx, Fhx allergy reviewed in EMR. ROS as per chart and RN report Now in ICU, hemodynamically stable Video assessment done using teleICU camera, rest of exam as per RN Discussed with RN. Now still levo @ 0.3, Has trach with + secretions, growing pseudomonas, on IV meropenem Also has colostomy, suprapubic catheter-both sites look ok, has Proteus in urine , s/p ICB, at baseline only spont eye openings Has port and RUE midline, both sites look ok PEG for TF, site looks ok Sepsis Event Evaluation Height, Weight, BMI Height: '" Weight: lbs. oz. kg; 25.65 BMI Method: Exam Exam Patient acknowledged, consented, and participated in this virtual visit which was conducted using real time audio/video Vital Signs Date Time Temp Pulse Resp B/P (MAP) Pulse Ox O2 Delivery O2 Flow Rate FiO2 01/16/23 08:00 81 20 107/67 (80) 93 Vapotherm 20.00 35.00 01/16/23 07:00 77 01/16/23 07:00 74 18 117/74 (88) 94 Vapotherm 20.00 35.00 01/16/23 06:00 75 20 126/87 (100) 94 Vapotherm 20.00 35.00 01/16/23 05:00 70 19 125/77 (93) 97 Vapotherm 20.00 35.00 01/16/23 04:00 74 19 96 Vapotherm 20.00 35.00 01/16/23 04:00 Vapotherm 20.00 35 01/16/23 03:42 36.6 Vapotherm 20.00 35.00 01/16/23 03:00 75 19 107/84 (92) 97 Vapotherm 20.00 35.00 01/16/23 02:35 95 Vapotherm 20.00 35 01/16/23 02:00 84 22 111/84 (93) 96 Vapotherm 20.00 35.00 01/16/23 01:00 81 25 121/77 (92) 95 Vapotherm 20.00 35.00 01/16/23 01:00 82 01/16/23 00:01 36.5 Vapotherm 20.00 35.00 01/16/23 00:00 77 24 125/75 (92) 95 Vapotherm 20.00 35.00 01/15/23 23:44 Vapotherm 20.00 35 01/15/23 23:00 96 21 116/76 (89) 95 Vapotherm 20.00 35.00 01/15/23 22:00 83 19 125/85 (98) 96 Vapotherm 20.00 35.00 01/15/23 21:53 Vapotherm 20.00 35 01/15/23 21:00 20 133/104 (114) 97 Vapotherm 20.00 35.00 01/15/23 20:00 82 21 119/91 (100) 96 Vapotherm 20.00 35.00 01/15/23 19:49 37.2 01/15/23 19:47 Vapotherm 20.00 35 01/15/23 19:37 37.2 86 128/79 (95) 95 Vapotherm 20.00 35.00 01/15/23 19:19 96 Vapotherm 20.00 35 01/15/23 19:00 80 01/15/23 18:38 36.7 112 14 104/64 (77) 95 Mechanical Ventilator 3.00 21.00 01/15/23 18:09 88 110/71 01/15/23 18:00 87 26 97/60 (72) 93 Vapotherm 20.00 35.00 01/15/23 17:00 88 25 110/71 (84) 93 Vapotherm 20.00 35.00 01/15/23 16:25 Vapotherm 20.00 35 01/15/23 16:00 74 18 109/47 (67) 94 Vapotherm 20.00 35.00 01/15/23 16:00 37.4 01/15/23 15:00 83 20 118/77 (91) 96 Vapotherm 20.00 35.00 01/15/23 14:00 80 23 101/76 (84) 96 Vapotherm 20.00 35.00 11/1/23 13:56 96 Vapotherm 20.00 35 01/15/23 13:02 73 01/15/23 13:00 78 18 112/80 (91) 94 Vapotherm 20.00 35.00 01/15/23 12:48 37.3 01/15/23 12:00 66 17 115/78 (90) 96 Vapotherm 20.00 35.00 01/15/23 11:38 65 83/55 01/15/23 11:24 36.3 01/15/23 11:00 73 12 90/58 (69) 95 Vapotherm 20.00 35.00 01/15/23 10:37 96 Vapotherm 20.00 35 01/15/23 10:00 82 17 79/67 (71) 95 Vapotherm 20.00 35.00 01/15/23 09:46 Vapotherm 20.00 35.00 01/15/23 09:00 89 22 100/65 (77) Vapotherm 20.00 35.00 I & O 01/16/23 07:00 Intake Total 1190 ml Output Total 4200 ml Balance -3010 ml Height & Weight Height: '" Weight: lbs. oz. kg; 25.65 BMI Method: General Appearance: No Apparent Distress, WD/WN, Chronically ill HEENT: Normal ENT Inspection, Other (Tracheostomy in place) Neck: Other (Tracheostomy in place, site looks ok) Respiratory: Lungs Clear, Rhonci, Wheezing Cardiovascular: Regular Rate, Rhythm Capillary Refill: Less Than 3 Seconds Gastrointestinal: normal bowel sounds, non tender, soft, other (colostomy and PEG tubes in place, sites look ok) Extremity: No Pedal Edema Neurologic/Psychiatric: Aphasia, Other (only spont eye opening, has cough, str mariella, able to cough up secretions) Skin: Other (incision c/d/i and port accessed) Results Lab Laboratory Tests 01/15/23 03:38 01/16/23 04:35 Assessment/Plan Assessment/Plan Septic shock, still on pressors, will continue IV meropnem, if secretions remain thick will start mucomyst full code Critical Care: Critically Ill Patient Time spent with patient (mins): 25 TED NEWTON MD Jan 16, 2023 08:33
[2023-01-16] MEDS: DOCUSATE SODIUM 100 MG/10 ML UDC ORAL SOLN PEG SCH ×2 (08:40→21:11)
[2023-01-16] MEDS: LevETIRAcetam 500 MG/ 5 ML UDC ORAL SOLN PEG SCH ×2 (08:45→21:11)
[2023-01-16] MEDS: BACLOFEN 10 MG TABLET PEG SCH ×2 (08:45→21:11)
[2023-01-16] MEDS: POTASSIUM BICARB 20 MEQ effervescent TABLET PEG SCH ×3 (08:45→21:11)
[2023-01-16] MEDS: MICONAZOLE 2% POWDER 90 GM TOP SCH ×2 (08:46→21:11)
[2023-01-16] MEDS: LACTATED RINGERS 1,000 ML 1,000 ML IV SCH ×3 (08:47→15:42)
--- NOTE | 2023-01-16 09:17 | Diagnostic Imaging Report ---
INDICATION: Respiratory distress. FINDINGS: Trach tube tip above the ministerio. Left subclavian line at the lower SVC in stable and good alignment. Heart size stable. No focal consolidation. There is some mild medial left basilar subsegmental atelectasis. No vianey edema. No pleural fluid. No free air beneath the diaphragms. IMPRESSION: Stable chest. Dictated by: Dictated on workstation # [id number]
--- NOTE | 2023-01-16 10:07 | Progress Note ---
KATALINA PEREZ MD, RESIDENT 01/16/23 1007: Subjective HPI/CC On Admission Date Seen by Provider: Jan 16, 2023 Time Seen by Provider: 08:45 Subjective/Events-last exam Patient continues to be stable this AM. Is still on Levophed with no attempts to wean overnight. Palliative care discussion yesterday with was notable for continuing current treatment plan with eventual discharge to SNF. PEG tube appears to be functioning appropriately status post exchange. Review of Systems Unable to obtain as patient is aphasic Objective Exam Vital Signs Vital Signs Date Time Temp Pulse Resp B/P (MAP) Pulse Ox O2 Delivery O2 Flow Rate FiO2 01/16/23 11:48 Vapotherm 20.00 30.00 01/16/23 11:00 65 19 99 01/16/23 04:00 35 01/16/23 03:42 36.6 Capillary Refill : Less Than 3 Seconds General Appearance: No Apparent Distress HEENT: Normal ENT Inspection, Other (Tracheostomy in place) Neck: Full Range of Motion, Non Tender, Supple Respiratory: Chest Non Tender, Lungs Clear, Normal Breath Sounds, No Accessory Muscle Use, No Respiratory Distress Cardiovascular: Regular Rate, Rhythm, No Edema, No Murmur, Other (Left port appears to be healing well) Gastrointestinal: Normal Bowel Sounds, Non Tender, Soft, Other (PEG tube in place, colostomy bag draining stool) Skin: Normal Color, Warm/Dry Lymphatic: No Adenopathy Results/Procedures Lab Laboratory Tests 01/16/23 04:35 Patient resulted labs reviewed. Assessment/Plan Assessment and Plan Assess & Plan/Chief Complaint Patient is a 47-year-old female who was admitted for urinary tract infection. Is currently requiring Levophed for hypotension and ICU status. Diagnosis/Problems Diagnosis/Problems (1) Catheter-associated urinary tract infection Status: Acute Assessment & Plan: Urinary tract infection secondary to chronic indwelling suprapubic catheter. Patient appears quite comfortable. Plan: Urine culture grew Proteus Sputum culture grew Pseudomonas and Achromobacter Blood cultures grew staph hominis and epidermidis, this is likely a contaminant given that only 1 bottle of 3 was growing staph Continue meropenem, today is day 4 of meropenem but day 9 of antibiotics and general Port in place, okay to use Repeat blood cultures pending Qualifiers: Qualified Codes: T83.510A - Infection and inflammatory reaction due to cysto stomy catheter, initial encounter; N39.0 - Urinary tract infection, site not specified (2) Hypotension Status: Chronic Assessment & Plan: Patient has soft blood pressures at baseline in the 90s systolic. Had unstable blood pressures yesterday not responding to fluids. Plan: Restarted Levophed, goal is to wean today pending dispo - Will start florinef and midodrine today to help with hypotension (3) Tracheostomy care Status: Chronic Assessment & Plan: Continue routine tracheostomy care (4) Uses feeding tube Status: Chronic Assessment & Plan: PEG tube exchanged yesterday. Does not seem to show any backup with tube feeds. Continue tube feeds as tolerated (5) Colostomy care Status: Chronic Assessment & Plan: Continue routine colostomy care. JOCELINE GONZALEZ DO 01/17/23 0456: Subjective Subjective/Events-last exam Patient remains semicomatose Levophed will be weaned and started on midodrine and Florinef Objective Exam General Appearance: Chronically ill, Other (Semicomatose) Assessment/Plan Assessment and Plan Assess & Plan/Chief Complaint Completed antibiotics Wean Levophed Florinef and midodrine agreeable to the [facility] at discharge KATALINA PEREZ MD, RESIDENT Jan 16, 2023 10:07 JOCELINE GONZALEZ DO Jan 17, 2023 04:56
[2023-01-16] MEDS: NS IV 1000 ML 1,000 ML IV SCH ×2 (11:16→15:03)
[2023-01-16] MEDS: ENOXAPARIN 40 MG/0.4 ML SYRINGE SC SCH (13:04)
[2023-01-16] MEDS: MIDODRINE 10 MG TABLET PO SCH ×2 (13:09→21:11)
[2023-01-16] MEDS: NOREPINEPHRINE 8 MG/250 ML 250 ML IV SCH (23:14)
[2023-01-17] MEDS: RT-Ipratropium/Albuterol NEB 3 ML VIAL IH SCH ×4 (03:13→20:42)
[2023-01-17] MEDS: NOREPINEPHRINE 8 MG/250 ML 250 ML IV SCH (03:50)
[2023-01-17 05:52] LABS: BASOPHILS % (AUTO) 1 % (0-10); EOSINOPHILS # (AUTO) 0.4 10^3/uL (0.0-0.3); EOSINOPHILS % (AUTO) 7 % (0-10); HEMATOCRIT 32 % (35-52); HEMOGLOBIN 10.5 g/dL (11.5-16.0); LYMPHOCYTES # (AUTO) 1.7 10^3/uL (1.0-4.0); LYMPHOCYTES % (AUTO) 27 % (12-44); MEAN CORPUSCULAR HEMOGLOBIN 31 pg (25-34); MEAN CORPUSCULAR HGB CONC 33 g/dL (32-36); MEAN CORPUSCULAR VOLUME 94 fL (80-99); MONOCYTES # (AUTO) 0.5 10^3/uL (0.0-1.0); MONOCYTES % (AUTO) 8 % (0-12); NEUTROPHILS # (AUTO) 3.8 10^3/uL (1.8-7.8); NEUTROPHILS % (AUTO) 58 % (42-75); PLATELET COUNT 297 10^3/uL (130-400); WHITE BLOOD COUNT 6.4 10^3/uL (4.3-11.0)
[2023-01-17] MEDS: NS IV 1000 ML 1,000 ML IV SCH (05:52)
[2023-01-17 06:01] LABS: POTASSIUM 3.8 MMOL/L (3.6-5.0)
[2023-01-17 06:02] LABS: CALCIUM 8.3 MG/DL (8.5-10.1)
[2023-01-17 06:04] LABS: TOTAL PROTEIN 6.1 GM/DL (6.4-8.2)
[2023-01-17 06:06] LABS: BILIRUBIN,TOTAL 0.2 MG/DL (0.1-1.0)
[2023-01-17 06:07] LABS: PHOSPHORUS 2.4 MG/DL (2.3-4.7)
[2023-01-17 06:08] LABS: CREATININE SERUM 0.5 MG/DL (0.60-1.30)
[2023-01-17] MEDS: POTASSIUM CHLORIDE 20 MEQ TABLET PO SCH (06:08)
[2023-01-17] MEDS: POTASSIUM CL 10MEQ/50ML IVPB 50 ML IV SCH (06:09)
[2023-01-17 06:10] LABS: MAGNESIUM 1.6 MG/DL (1.6-2.4)
[2023-01-17] MEDS: MAGNESIUM 1 GM/100 ML IVPB 100 ML IV SCH (06:29)
[2023-01-17] MEDS: LACTATED RINGERS 1,000 ML 1,000 ML IV SCH ×2 (06:59→16:00)
[2023-01-17] MEDS: BACLOFEN 10 MG TABLET PEG SCH ×2 (08:54→21:13)
[2023-01-17] MEDS: LevETIRAcetam 500 MG/ 5 ML UDC ORAL SOLN PEG SCH ×2 (08:54→21:13)
[2023-01-17] MEDS: POTASSIUM BICARB 20 MEQ effervescent TABLET PEG SCH ×3 (08:54→21:13)
[2023-01-17] MEDS: MIDODRINE 10 MG TABLET PO SCH ×3 (08:54→21:13)
[2023-01-17] MEDS: MICONAZOLE 2% POWDER 90 GM TOP SCH ×2 (08:54→21:14)
[2023-01-17] MEDS: DOCUSATE SODIUM 100 MG/10 ML UDC ORAL SOLN PEG SCH ×2 (08:54→21:13)
[2023-01-17] MEDS: FLUDROCORTISONE 0.1 MG TABLET PO SCH (08:54)
[2023-01-17] MEDS ORDERED: FLUDROCORTISONE 0.1 MG TABLET PO SCH (09:00)
--- NOTE | 2023-01-17 09:19 | Diagnostic Imaging Report ---
INDICATION: Dyspnea. Respiratory failure. COMPARISON: 01/16/2023 FINDINGS: Single frontal radiograph view of the chest was obtained and demonstrates borderline enlargement of the cardiac silhouette. This may be exaggerated by portable technique. Pulmonary vasculature is within normal limits. Indwelling tracheostomy tube is seen with tip at the clavicular heads. Left-sided subclavian Port-A-Cath is also noted with tip in lower SVC. Lungs are clear. There is no focal consolidation, large effusion, nor pneumothorax. IMPRESSION: 1. Borderline enlargement of the cardiac silhouette, which may be exaggerated by portable technique. There is otherwise no evidence of failure or focal infiltrate. Dictated by: Dictated on workstation # [id number]
--- NOTE | 2023-01-17 11:34 | Progress Note ---
KATALINA PEREZ MD, RESIDENT 01/17/23 1134: Subjective HPI/CC On Admission Date Seen by Provider: Jan 17, 2023 Time Seen by Provider: 08:50 Subjective/Events-last exam Patient continues to be stable today. Was unable to wean off of the Levophed yesterday. Will be making adjustments to patient's hypotensive medications to wean off of the Levophed. If able to do so, will plan to transfer to [facility]. Otherwise no overnight events. Review of Systems Unable to obtain as patient is aphasic Objective Exam Vital Signs Vital Signs Date Time Temp Pulse Resp B/P (MAP) Pulse Ox O2 Delivery O2 Flow Rate FiO2 01/17/23 11:11 Trach Collar 15.00 25 01/17/23 11:10 37.0 01/17/23 11:00 86 22 95 Capillary Refill : Less Than 3 Seconds General Appearance: No Apparent Distress HEENT: Normal ENT Inspection Neck: Full Range of Motion, Normal Inspection, Supple, Other (Tracheostomy in place) Respiratory: Chest Non Tender, Lungs Clear, Normal Breath Sounds, No Accessory Muscle Use, No Respiratory Distress Cardiovascular: Regular Rate, Rhythm, No Edema, No Murmur Gastrointestinal: Normal Bowel Sounds, Non Tender, Soft, Other (PEG tube in place, colostomy looks good) Neurologic/Psychiatric: Alert Skin: Normal Color, Warm/Dry Results/Procedures Lab Laboratory Tests 01/17/23 05:25 Patient resulted labs reviewed. Assessment/Plan Assessment and Plan Assess & Plan/Chief Complaint Patient is a 47-year-old female who was admitted for urinary tract infection. Is currently requiring Levophed for hypotension and ICU status. Diagnosis/Problems Diagnosis/Problems (1) Catheter-associated urinary tract infection Status: Acute Assessment & Plan: Urinary tract infection secondary to chronic indwelling suprapubic catheter. Patient appears quite comfortable. Plan: Urine culture grew Proteus Sputum culture grew Pseudomonas and Achromobacter Blood cultures grew staph hominis and epidermidis, this is likely a contaminant given that only 1 bottle of 3 was growing staph Discontinued antibiotics yesterday as patient has completed 9 days of antibiotics Port in place, okay to use Repeat blood cultures no growth Qualifiers: Qualified Codes: T83.510A - Infection and inflammatory reaction due to cystostomy catheter, initial encounter; N39.0 - Urinary tract infection, site not specified (2) Hypotension Status: Chronic Assessment & Plan: Patient has soft blood pressures at baseline in the 90s systolic. Had unstable blood pressures yesterday not responding to fluids. Plan: Wean off Levophed as tolerated -Increasing Florinef 2.2 mg daily and midodrine to 10 mg 3 times daily If able to wean off, will transfer to fourth floor (3) Tracheostomy care Status: Chronic Assessment & Plan: Continue routine tracheostomy care (4) Uses feeding tube Status: Chronic Assessment & Plan: PEG tube exchanged yesterday. Does not seem to show any backup with tube feeds. Continue tube feeds as tolerated (5) Colostomy care Status: Chronic Assessment & Plan: Continue routine colostomy care. JOCELINE GONZALEZ DO 01/17/232047: Subjective Subjective/Events-last exam Unable to be weaned off Levophed Midodrine and Florinef increased Objective Exam General Appearance: No Apparent Distress, WD/WN, Chronically ill, Other (Semicomatose) Assessment/Plan Assessment and Plan Assess & Plan/Chief Complaint Continue to try to wean Levophed KATALINA PEREZ MD, RESIDENT Jan 17, 2023 11:34 JOCELINE GONZALEZ DO Jan 17, 2023 20:48
[2023-01-17] MEDS: ENOXAPARIN 40 MG/0.4 ML SYRINGE SC SCH (12:55)
[2023-01-18] MEDS: RT-Ipratropium/Albuterol NEB 3 ML VIAL IH SCH ×4 (03:21→20:58)
[2023-01-18] MEDS: LACTATED RINGERS 1,000 ML 1,000 ML IV SCH (04:45)
[2023-01-18 04:53] LABS: BASOPHILS # (AUTO) 0.1 10^3/uL (0.0-0.1); BASOPHILS % (AUTO) 1 % (0-10); EOSINOPHILS # (AUTO) 0.5 10^3/uL (0.0-0.3); EOSINOPHILS % (AUTO) 6 % (0-10); HEMATOCRIT 31 % (35-52); HEMOGLOBIN 10.1 g/dL (11.5-16.0); LYMPHOCYTES # (AUTO) 3.3 10^3/uL (1.0-4.0); LYMPHOCYTES % (AUTO) 43 % (12-44); MEAN CORPUSCULAR HEMOGLOBIN 31 pg (25-34); MEAN CORPUSCULAR HGB CONC 33 g/dL (32-36); MEAN CORPUSCULAR VOLUME 95 fL (80-99); MEAN PLATELET VOLUME 9.7 fL (9.0-12.2); MONOCYTES # (AUTO) 0.6 10^3/uL (0.0-1.0); MONOCYTES % (AUTO) 8 % (0-12); NEUTROPHILS # (AUTO) 3.3 10^3/uL (1.8-7.8); NEUTROPHILS % (AUTO) 42 % (42-75); PLATELET COUNT 287 10^3/uL (130-400); WHITE BLOOD COUNT 7.7 10^3/uL (4.3-11.0)
[2023-01-18 05:03] LABS: ALBUMIN 2.8 GM/DL (3.2-4.5)
[2023-01-18 05:05] LABS: CALCIUM 8.5 MG/DL (8.5-10.1)
[2023-01-18 05:06] LABS: TOTAL PROTEIN 5.8 GM/DL (6.4-8.2)
[2023-01-18 05:08] LABS: BILIRUBIN,TOTAL 0.2 MG/DL (0.1-1.0)
[2023-01-18 05:09] LABS: PHOSPHORUS 3.4 MG/DL (2.3-4.7)
[2023-01-18 05:10] LABS: CREATININE SERUM 0.46 MG/DL (0.60-1.30)
[2023-01-18 05:12] LABS: MAGNESIUM 1.6 MG/DL (1.6-2.4)
[2023-01-18] MEDS: MAGNESIUM 1 GM/100 ML IVPB 100 ML IV SCH ×5 (06:28→09:47)
[2023-01-18] MEDS: POTASSIUM CHLORIDE 20 MEQ TABLET PO SCH (06:29)
[2023-01-18] MEDS: POTASSIUM CL 10MEQ/50ML IVPB 50 ML IV SCH (06:29)
[2023-01-18] MEDS ORDERED: MAGNESIUM 1 GM/100 ML IVPB 400 ML IV ONE (06:40)
[2023-01-18] MEDS: DOCUSATE SODIUM 100 MG/10 ML UDC ORAL SOLN PEG SCH ×2 (07:54→22:06)
[2023-01-18] MEDS: LevETIRAcetam 500 MG/ 5 ML UDC ORAL SOLN PEG SCH ×2 (07:54→20:42)
[2023-01-18] MEDS: MIDODRINE 10 MG TABLET PO SCH ×3 (07:54→20:42)
[2023-01-18] MEDS: POTASSIUM BICARB 20 MEQ effervescent TABLET PEG SCH ×3 (07:55→20:42)
[2023-01-18] MEDS: BACLOFEN 10 MG TABLET PEG SCH ×2 (07:55→20:42)
[2023-01-18] MEDS: FLUDROCORTISONE 0.1 MG TABLET PO SCH (07:55)
[2023-01-18] MEDS: MICONAZOLE 2% POWDER 90 GM TOP SCH ×2 (08:11→22:36)
[2023-01-18] MEDS: NS IV 1000 ML 1,000 ML IV SCH ×3 (09:10→22:36)
--- NOTE | 2023-01-18 09:26 | Progress Note ---
KATALINA PEREZ MD, RESIDENT 01/18/23 0926: Subjective HPI/CC On Admission Date Seen by Provider: Jan 18, 2023 Time Seen by Provider: 07:45 Subjective/Events-last exam Patient continues to remain comfortable. Has been off of the Levophed since yesterday at 8 AM. Review of Systems Unable to obtain as patient is aphasic Objective Exam Vital Signs Vital Signs Date Time Temp Pulse Resp B/P (MAP) Pulse Ox O2 Delivery O2 Flow Rate FiO2 01/18/23 09:01 97 Vapotherm 15.00 24 01/18/23 09:00 76 24 111/85 (96) 01/18/23 07:55 37.8 Capillary Refill : Less Than 3 Seconds General Appearance: No Apparent Distress HEENT: Normal ENT Inspection Neck: Normal Inspection, Supple (Tracheostomy in place), Other Respiratory: Chest Non Tender, Lungs Clear, Normal Breath Sounds, No Accessory Muscle Use, No Respiratory Distress Cardiovascular: Regular Rate, Rhythm, No Edema, No Murmur Gastrointestinal: Normal Bowel Sounds, Non Tender, Soft, Other (Colostomy bag filled with gas and a little bit of stool this a.m., PEG tube in place continues to be functioning well) Extremity: No Pedal Edema Neurologic/Psychiatric: Aphasia Skin: Normal Color, Warm/Dry Results/Procedures Lab Laboratory Tests 01/18/23 04:30 Patient resulted labs reviewed. Assessment/Plan Assessment and Plan Assess & Plan/Chief Complaint Patient is a 47-year-old female who was admitted for urinary tract infection. Is currently requiring Levophed for hypotension and ICU status. Diagnosis/Problems Diagnosis/Problems (1) Hypotension Status: Chronic Assessment & Plan: Patient has soft blood pressures at baseline in the 90s systolic. Plan: Been off of Levophed since yesterday -Continue Florinef 0.2 mg daily and midodrine to 10 mg 3 times daily Transfer to fourth floor today, anticipate dispo on Friday to facility (2) Catheter-associated urinary tract infection Status: Resolved Assessment & Plan: Urinary tract infection secondary to chronic indwelling suprapubic catheter. Patient appears quite comfortable. Discontinued antibiotics on 01/16/2023 as patient completed a 9-day course. Plan: Urine culture grew Proteus Sputum culture grew Pseudomonas and Achromobacter Blood cultures grew staph hominis and epidermidis, this is likely a contaminant given that only 1 bottle of 3 was growing staph Port in place, okay to use Repeat blood cultures no growth Qualifiers: Qualified Codes: T83.510A - Infection and inflammatory reaction due to cystostomy catheter, initial encounter; N39.0 - Urinary tract infection, site not specified Resolution Date/Time: 01/18/23 @ 09:24 (3) Tracheostomy care Status: Chronic Assessment & Plan: Continue routine tracheostomy care (4) Uses feeding tube Status: Chronic Assessment & Plan: PEG tube exchanged 01/15 does not seem to show any backup with tube feeds. Continue tube feeds as tolerated (5) Colostomy care Status: Chronic Assessment & Plan: Continue routine colostomy care. JOCELINE GONZALEZ DO 01/19/23 0538: Subjective Subjective/Events-last exam Patient weaning off Levophed Moving to fourth floor Objective Exam General Appearance: Other (Semicomatose) Respiratory: Lungs Clear Cardiovascular: Regular Rate, Rhythm Assessment/Plan Assessment and Plan Assess & Plan/Chief Complaint We will move to KATALINA PEREZ MD, RESIDENT Jan 18, 2023 09:26 JOCELINE GONZALEZ DO Jan 19, 2023 05:38
[2023-01-18] MEDS: NOREPINEPHRINE 8 MG/250 ML 250 ML IV SCH (10:03)
--- NOTE | 2023-01-18 11:21 | Tele-ICU Progress Note ---
Subjective Date Seen by a Provider: Jan 18, 2023 Time Seen by a Provider: 11:17 Subjective/Events-last exam (Tele-ICU Physician , Progress Note ) Service provided via interactive audio and video telecommunications E-CARE system to a patient admitted to ICU bed in [facility]. Patient is seen today due to persistent need of ICU care Available chart/ vitals / labs / Images reviewed Video assessment done using teleICU camera, rest of exam as per RN Discussed with RN Events overnight : Afebrile hemodynamically stable Respiratory - 6l TC I/O + Drips: ns 70 Pressors- LEVO OFF since 8 am Hospital course: 01/08) 47/F admitted from ED w/ urosepsis (01/10) Tx to ICU- Hypotension, Hypoxia-concern for aspiration of tubefeeds 01/11- 6L TC , levo 0.45 01/13 - LEVO OFF , 8 L o2 01/14- on VT 15L 35 % , s/p exchange her PEG tube with a Gastrostomy tube--> back on LEVO 01/15- on VT 15L 35 % . LEVO OFF since 8 am 01/18/23 SHE IS RESTING COMFORTABLY, OFF LEVO AND MEROPENUM A/P Sepsis , with shock ( baseline SBP 90s) -LEVO OFF Hypoxia ( S/p tracheostomy - on VT 15L 35 % - copious secretion reported - with mucous plugging- seems better with high humiduty with VT - ? mucomist , -cont nebs on scheduled regiment , try CHEST PT -PSA in sputum and Achromobacter xylosoxidans- on MEROPENEM ( based on sens) COMPLETED COURSE. 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 Discussed with RN to reach out if any questions or concerns Case and care daily discussed on multidisciplinary rounds ( RN, PharmD, Milk Driver , Respiratory Therapy, refuge worker ) MAY TRANSFER OUT OF ICU PER CRITICAL CARE. A total of 15 minutes of critical care time was devoted to this patient today, required to treat and/or prevent further deterioration of critical care condition ( as above ) . I am remotely monitoring this patient from another state. I am unable to do the bedside exam, and history/physical and pertinent information is taken from other notes in the computer and bedside staff. Sepsis Event Evaluation Height, Weight, BMI Height: '" Weight: lbs. oz. kg; 25.65 BMI Method: Exam Exam Patient acknowledged, consented, and participated in this virtual visit which was conducted using real time audio/video Vital Signs Date Time Temp Pulse Resp B/P (MAP) Pulse Ox O2 Delivery O2 Flow Rate FiO2 01/18/23 11:00 72 19 Vapotherm 15.00 24.00 01/18/23 10:00 76 12 98/57 (68) Vapotherm 15.00 24.00 01/18/23 09:01 97 Vapotherm 15.00 24 01/18/23 09:00 76 24 111/85 (96) Vapotherm 15.00 24.00 01/18/23 08:10 Trach Collar 15.00 25 01/18/23 08:00 74 17 97/64 (75) Vapotherm 15.00 24.00 01/18/23 07:55 37.8 01/18/23 07:00 82 01/18/23 07:00 81 18 91/58 (68) Vapotherm 15.00 24.00 01/18/23 06:00 84 15 105/69 (81) 96 Vapotherm 15.00 24.00 01/18/23 05:00 85 20 126/75 (92) 97 Vapotherm 15.00 24.00 01/18/23 04:04 96 Trach Collar 15.00 25 01/18/23 04:00 38.4 76 18 96/59 (70) 96 Vapotherm 15.00 24.00 01/18/23 03:45 88/51 (67) 01/18/23 03:30 106/62 (72) 01/18/23 03:22 97 Vapotherm 15.00 24 01/18/23 03:15 80 18 108/65 (77) 97 Vapotherm 15.00 24.00 01/18/23 03:00 89 28 112/91 (102) 99 Vapotherm 15.00 24.00 01/18/23 02:30 90 22 114/77 (91) 98 Vapotherm 15.00 24.00 01/18/23 02:15 92 24 113/77 (91) 97 Vapotherm 15.00 24.00 01/18/23 02:00 96 18 104/79 (98) 98 Vapotherm 15.00 24.00 01/18/23 01:45 91 21 130/97 (111) 97 Vapotherm 15.00 24.00 01/18/23 01:30 143/85 (99) 01/18/23 01:15 125/85 (94) 01/18/23 01:00 82 23 129/85 (98) 97 Vapotherm 15.00 24.00 01/18/23 01:00 82 01/18/23 00:04 Trach Collar 15.00 25 01/18/23 00:00 37.1 92 125/87 (97) Vapotherm 15.00 24.00 01/17/23 23:45 90 27 94/83 (89) 96 Vapotherm 15.00 24.00 01/17/23 23:30 82 21 100/76 (80) 97 Vapotherm 15.00 24.00 01/17/23 23:15 83 22 121/83 (92) 97 Vapotherm 15.00 24.00 01/17/23 23:00 84 23 131/118 (121) 97 Vapotherm 15.00 24.00 01/17/23 22:45 85 24 113/82 (100) 97 Vapotherm 15.00 24.00 01/17/23 22:30 88 25 138/90 (109) 98 Vapotherm 15.00 24.00 01/17/23 22:15 37.2 90 29 121/88 (107) 97 Vapotherm 15.00 24.00 01/17/23 22:00 85 19 113/81 (92) 98 Vapotherm 15.00 24.00 01/17/23 21:00 79 18 103/72 (82) 95 Vapotherm 15.00 24.00 01/17/23 20:42 96 Vapotherm 15.00 24 01/17/23 20:20 Trach Collar 15.00 25 01/17/23 20:00 80 19 107/71 (83) 95 Vapotherm 15.00 24.00 01/17/23 19:53 36.6 01/17/23 19:00 84 01/17/23 19:00 84 21 109/76 (87) 97 Vapotherm 15.00 24.00 01/17/23 18:00 87 22 110/68 (92) 97 Vapotherm 15.00 24.00 01/17/23 17:00 81 21 88/63 (69) 97 Vapotherm 15.00 24.00 01/17/23 16:00 94 26 95/80 (84) 95 Vapotherm 15.00 24.00 01/17/23 16:00 Trach Collar 15.00 25 01/17/23 15:56 36.5 01/17/23 15:00 113 18 132/86 (108) 99 Vapotherm 15.00 24.00 01/17/23 14:48 97 Vapotherm 15.00 24 01/17/23 14:00 68 19 92/57 (69) 97 Vapotherm 15.00 24.00 01/17/23 13:00 84 25 95/75 (85) 98 Vapotherm 15.00 24.00 01/17/23 12:43 89 01/17/23 12:00 37.1 01/17/23 12:00 89 11 97/69 (80) 97 Vapotherm 15.00 24.00 I & O 01/18/23 07:00 Intake Total 3235 ml Output Total 1950 ml Balance 1285 ml Height & Weight Height: '" Weight: lbs. oz. kg; 25.65 BMI Method: General Appearance: No Apparent Distress HEENT: Normal ENT Inspection Neck: Normal Inspection, Supple (Tracheostomy in place), Other Respiratory: Chest Non Tender, Lungs Clear, Normal Breath Sounds, No Accessory Muscle Use, No Respiratory Distress Cardiovascular: Regular Rate, Rhythm, No Edema, No Murmur Capillary Refill: Less Than 3 Seconds Gastrointestinal: normal bowel sounds, non tender, soft, other (colostomy and PEG tubes in place, sites look ok) Extremity: No Pedal Edema Neurologic/Psychiatric: Aphasia Skin: Normal Color, Warm/Dry Lymphatic: No Adenopathy Results Lab Laboratory Tests 01/17/23 05:25 01/18/23 04:30 Assessment/Plan Assessment/Plan ABOVE Critical Care: Critically Ill Patient Time spent with patient (mins): 15 VICTORIA SLOAN MD Jan 18, 2023 11:21
--- NOTE | 2023-01-18 11:27 | Diagnostic Imaging Report ---
INDICATION: Follow-up dyspnea, ventilatory management. COMPARISON: 01/17/2023 FINDINGS: Left subclavian line has its distal tip projecting at the expected level of the lower SVC. Again takes an atypical course and its conceivable but its through the azygos arch and directed inferiorly to the right azygous vein. Correlation with lateral radiograph suggested. Lungs themselves free of infiltrate. No effusion or pneumothorax. Trach tube mid trachea. IMPRESSION: Left subclavian line projects unchanged from prior has an atypical course at the right mediastinum and its conceivable that this is within the azygos vein directed inferiorly. Lateral radiograph suggested to confirm its expected normal anteroposterior positioning.. Dictated by: Dictated on workstation # [id number]
[2023-01-18] MEDS ORDERED: POTASSIUM CL 10MEQ/50ML IVPB 50 ML IV SCH (12:00)
[2023-01-18] MEDS: ENOXAPARIN 40 MG/0.4 ML SYRINGE SC SCH (12:53)
[2023-01-18 16:16] VITALS: BP 96/57
[2023-01-18 20:00] VITALS: BP 135/74
[2023-01-18 23:21] VITALS: BP 151/80
[2023-01-19] MEDS: ACETAMINOPHEN 325 MG TABLET PO PRN ×2 (00:47→14:18)
[2023-01-19] MEDS: RT-Ipratropium/Albuterol NEB 3 ML VIAL IH SCH ×4 (02:55→20:55)
[2023-01-19 04:56] VITALS: BP 111/63
[2023-01-19 05:36] LABS: BASOPHILS % (AUTO) 1 % (0-10); EOSINOPHILS # (AUTO) 0.3 10^3/uL (0.0-0.3); EOSINOPHILS % (AUTO) 5 % (0-10); HEMATOCRIT 31 % (35-52); HEMOGLOBIN 9.9 g/dL (11.5-16.0); LYMPHOCYTES # (AUTO) 1.9 10^3/uL (1.0-4.0); LYMPHOCYTES % (AUTO) 31 % (12-44); MEAN CORPUSCULAR HEMOGLOBIN 31 pg (25-34); MEAN CORPUSCULAR HGB CONC 33 g/dL (32-36); MEAN CORPUSCULAR VOLUME 95 fL (80-99); MEAN PLATELET VOLUME 9.7 fL (9.0-12.2); MONOCYTES # (AUTO) 0.5 10^3/uL (0.0-1.0); MONOCYTES % (AUTO) 7 % (0-12); NEUTROPHILS # (AUTO) 3.4 10^3/uL (1.8-7.8); NEUTROPHILS % (AUTO) 56 % (42-75); PLATELET COUNT 274 10^3/uL (130-400); WHITE BLOOD COUNT 6.1 10^3/uL (4.3-11.0)
[2023-01-19 05:49] LABS: POTASSIUM 3.7 MMOL/L (3.6-5.0)
[2023-01-19 05:51] LABS: CALCIUM 8.4 MG/DL (8.5-10.1)
[2023-01-19 05:52] LABS: TOTAL PROTEIN 6.1 GM/DL (6.4-8.2)
[2023-01-19 05:54] LABS: BILIRUBIN,TOTAL 0.2 MG/DL (0.1-1.0)
[2023-01-19 05:55] LABS: PHOSPHORUS 3.4 MG/DL (2.3-4.7)
[2023-01-19 05:56] LABS: CREATININE SERUM 0.47 MG/DL (0.60-1.30)
[2023-01-19 05:58] LABS: MAGNESIUM 1.7 MG/DL (1.6-2.4)
--- NOTE | 2023-01-19 05:58 | Progress Note - Hospitalist ---
Subjective HPI/CC On Admission Date Seen by Provider: Jan 19, 2023 Time Seen by Provider: 11:00 Subjective/Events-last exam Patient about the same Blood pressure stable Florinef and midodrine maintained Objective Exam Vital Signs Vital Signs Date Time Temp Pulse Resp B/P (MAP) Pulse Ox O2 Delivery O2 Flow Rate FiO2 01/19/23 11:39 36.4 75 16 110/73 (85) 95 Trach Collar 15.00 01/19/23 09:40 25 Capillary Refill : Less Than 3 Seconds General Appearance: No Apparent Distress, WD/WN, Chronically ill, Other (Semicomatose) Respiratory: Lungs Clear Results/Procedures Lab Laboratory Tests 01/19/23 05:25 Patient resulted labs reviewed. Assessment/Plan Assessment and Plan Assess & Plan/Chief Complaint 1) Hypotension Status: Chronic Assessment & Plan: Patient has soft blood pressures at baseline in the 90s systolic. Plan: Been off of Levophed since yesterday -Continue Florinef 0.2 mg daily and midodrine to 10 mg 3 times daily Transfer to fourth floor today, anticipate dispo on Friday to facility (2) Catheter-associated urinary tract infection Status: Resolved Assessment & Plan: Urinary tract infection secondary to chronic indwelling suprapubic catheter. Patient appears quite comfortable. Discontinued antibiotics on 01/16/2023 as patient completed a 9-day course. Plan: Urine culture grew Proteus Sputum culture grew Pseudomonas and Achromobacter Blood cultures grew staph hominis and epidermidis, this is likely a contaminant given that only 1 bottle of 3 was growing staph Port in place, okay to use Repeat blood cultures no growth Qualifiers: Qualified Codes: T83.510A - Infection and inflammatory reaction due to cystostomy catheter, initial encounter; N39.0 - Urinary tract infection, site not specified Resolution Date/Time: 01/18/23 @ 09:24 (3) Tracheostomy care Status: Chronic Assessment & Plan: Continue routine tracheostomy care (4) Uses feeding tube Status: Chronic Assessment & Plan: PEG tube exchanged 01/15 does not seem to show any backup with tube feeds. Continue tube feeds as tolerated (5) Colostomy care Status: Chronic Assessment & Plan: Continue routine colostomy care. Critical Care Critically Ill Patient JOCELINE GONZALEZ DO Jan 19, 2023 05:58
[2023-01-19] MEDS: POTASSIUM CL 10MEQ/50ML IVPB 50 ML IV SCH (06:09)
[2023-01-19] MEDS: MAGNESIUM 1 GM/100 ML IVPB 100 ML IV SCH ×5 (06:09→12:10)
[2023-01-19] MEDS: POTASSIUM CHLORIDE 20 MEQ TABLET PO SCH (06:10)
[2023-01-19] MEDS ORDERED: POTASSIUM CL 10MEQ/50ML IVPB 50 ML IV ONE (06:45)
[2023-01-19 08:00] VITALS: BP 129/74
[2023-01-19] MEDS: LevETIRAcetam 500 MG/ 5 ML UDC ORAL SOLN PEG SCH ×2 (08:36→20:42)
[2023-01-19] MEDS: POTASSIUM BICARB 20 MEQ effervescent TABLET PEG SCH ×3 (08:36→20:42)
[2023-01-19] MEDS: MIDODRINE 10 MG TABLET PO SCH ×3 (08:36→20:42)
[2023-01-19] MEDS: FLUDROCORTISONE 0.1 MG TABLET PO SCH (08:36)
[2023-01-19] MEDS: BACLOFEN 10 MG TABLET PEG SCH ×2 (08:36→20:42)
[2023-01-19] MEDS: MICONAZOLE 2% POWDER 90 GM TOP SCH ×2 (08:37→21:10)
[2023-01-19] MEDS: DOCUSATE SODIUM 100 MG/10 ML UDC ORAL SOLN PEG SCH ×2 (08:37→20:44)
[2023-01-19 11:39] VITALS: BP 110/73
[2023-01-19] MEDS: ENOXAPARIN 40 MG/0.4 ML SYRINGE SC SCH (12:50)
[2023-01-19 15:45] VITALS: BP 127/79
[2023-01-19] MEDS: NS IV 1000 ML 1,000 ML IV SCH (16:18)
[2023-01-19 20:14] VITALS: BP 116/74
[2023-01-20 00:16] VITALS: BP 132/79
[2023-01-20] MEDS: ACETAMINOPHEN 325 MG TABLET PO PRN (00:40)
[2023-01-20] MEDS: RT-Ipratropium/Albuterol NEB 3 ML VIAL IH SCH ×2 (02:59→10:08)
[2023-01-20 03:54] VITALS: BP 121/74
[2023-01-20 04:51] LABS: BASOPHILS % (AUTO) 1 % (0-10); EOSINOPHILS # (AUTO) 0.3 10^3/uL (0.0-0.3); EOSINOPHILS % (AUTO) 4 % (0-10); HEMATOCRIT 30 % (35-52); HEMOGLOBIN 9.8 g/dL (11.5-16.0); LYMPHOCYTES # (AUTO) 2.5 10^3/uL (1.0-4.0); LYMPHOCYTES % (AUTO) 34 % (12-44); MEAN CORPUSCULAR HEMOGLOBIN 31 pg (25-34); MEAN CORPUSCULAR HGB CONC 33 g/dL (32-36); MEAN CORPUSCULAR VOLUME 95 fL (80-99); MEAN PLATELET VOLUME 9.7 fL (9.0-12.2); MONOCYTES # (AUTO) 0.5 10^3/uL (0.0-1.0); MONOCYTES % (AUTO) 7 % (0-12); NEUTROPHILS # (AUTO) 3.9 10^3/uL (1.8-7.8); NEUTROPHILS % (AUTO) 54 % (42-75); PLATELET COUNT 302 10^3/uL (130-400); WHITE BLOOD COUNT 7.2 10^3/uL (4.3-11.0)
[2023-01-20 04:58] LABS: POTASSIUM 3.9 MMOL/L (3.6-5.0)
[2023-01-20 05:00] LABS: CALCIUM 8.4 MG/DL (8.5-10.1)
[2023-01-20 05:01] LABS: TOTAL PROTEIN 6.1 GM/DL (6.4-8.2)
[2023-01-20 05:02] LABS: BILIRUBIN,TOTAL 0.2 MG/DL (0.1-1.0)
[2023-01-20 05:04] LABS: CREATININE SERUM 0.44 MG/DL (0.60-1.30); PHOSPHORUS 3.5 MG/DL (2.3-4.7)
[2023-01-20 05:07] LABS: MAGNESIUM 1.8 MG/DL (1.6-2.4)
[2023-01-20] MEDS: NS IV 1000 ML 1,000 ML IV SCH (06:03)
[2023-01-20] MEDS: POTASSIUM CL 10MEQ/50ML IVPB 50 ML IV SCH ×3 (06:08→12:18)
[2023-01-20] MEDS: MAGNESIUM 1 GM/100 ML IVPB 100 ML IV SCH ×3 (06:08→10:10)
[2023-01-20] MEDS: POTASSIUM CHLORIDE 20 MEQ TABLET PO SCH (06:08)
[2023-01-20 07:44] VITALS: BP 127/60
[2023-01-20] MEDS: DOCUSATE SODIUM 100 MG/10 ML UDC ORAL SOLN PEG SCH (08:48)
[2023-01-20] MEDS: LevETIRAcetam 500 MG/ 5 ML UDC ORAL SOLN PEG SCH (08:48)
[2023-01-20] MEDS: BACLOFEN 10 MG TABLET PEG SCH (08:48)
[2023-01-20] MEDS: MIDODRINE 10 MG TABLET PO SCH ×2 (08:48→13:19)
[2023-01-20] MEDS: FLUDROCORTISONE 0.1 MG TABLET PO SCH (08:49)
[2023-01-20] MEDS: POTASSIUM BICARB 20 MEQ effervescent TABLET PEG SCH ×2 (08:49→13:19)
[2023-01-20] MEDS: MICONAZOLE 2% POWDER 90 GM TOP SCH (08:50)
--- NOTE | 2023-01-20 08:55 | Progress Note ---
KATALINA PEREZ MD, RESIDENT 01/20/23 0855: Subjective Subjective/Events-last exam Patient is doing well today. She continues to appear comfortable. Has had stable blood pressures without requiring Levophed. Anticipate discharge soon to [facility]. Review of Systems Unable to obtain as patient is aphasic Objective Exam Last Set of Vital Signs Vital Signs Date Time Temp Pulse Resp B/P (MAP) Pulse Ox O2 Delivery O2 Flow Rate FiO2 01/20/23 07:44 36.5 85 17 127/60 (82) 93 Trach Collar 01/20/23 03:54 15.00 01/20/23 03:00 24 Capillary Refill : Less Than 3 Seconds I&O l Intake and Output 01/20/23 00:00 Intake Total 2711 ml Output Total 3050 ml Balance -339 ml IV Total 450 ml Tube Feeding 781 ml Enteral Flush 960 ml Other 520 ml Output Urine Total 2150 ml Stool Total 900 ml General: Alert, No Acute Distress HEENT: EOMI Neck: Supple, Other (Tracheostomy in place, some phlegm noted) Lungs: Clear to Auscultation, Other (Some congested air sounds anteriorly bilaterally) Heart: Regular Rate, No Murmurs Abdomen: Normal Bowel Sounds, Soft, No Tenderness, Other (Colostomy appears normal and well maintained, PEG tube in place.) Extremities: No Edema Skin: No Rashes Results/Procedures Lab Laboratory Tests 01/19/23 12:41: Glucometer 89 01/19/23 18:06: Glucometer 113H 01/20/23 00:22: Glucometer 71 01/20/23 04:44: White Blood Count 7.2, Red Blood Count 3.15L, Hemoglobin 9.8L, Hematocrit 30L, Mean Corpuscular Volume 95, Mean Corpuscular Hemoglobin 31, Mean Corpuscular Hemoglobin Concent 33, Red Cell Distribution Width 13.3, Platelet Count 302, Mean Platelet Volume 9.7, Immature Granulocyte % (Auto) 0, Neutrophils (%) (Auto) 54, Lymphocytes (%) (Auto) 34, Monocytes (%) (Auto) 7, Eosinophils (%) (Auto) 4, Basophils (%) (Auto) 1, Neutrophils # (Auto) 3.9, Lymphocytes # (Auto) 2.5, Monocytes # (Auto) 0.5, Eosinophils # (Auto) 0.3, Basophils # (Auto) 0.0, Immature Granulocyte # (Auto) 0.0, Sodium Level 139, Potassium Level 3.9, Chloride Level 105, Carbon Dioxide Level 24, Anion Gap 10, Blood Urea Nitrogen 7, Creatinine 0.44L, Estimat Glomerular Filtration Rate 118, BUN/Creatinine Ratio 16, Glucose Level 78, Calcium Level 8.4L, Corrected Calcium 9.2, Phosphorus Level 3.5, Magnesium Level 1.8, Total Bilirubin 0.2, Aspartate Amino Transf (AST/SGOT) 14, Alanine Aminotransferase (ALT/SGPT) 10, Alkaline Phosphatase 71, Total Protein 6.1L, Albumin 3.0L Microbiology 01/15/23 MRSA Screen - Final, Complete MRSA not isolated 01/15/23 Blood Culture - Preliminary, Resulted 01/13/23 C. difficile GDH Antigen & Toxins - Final, Complete 01/08/23 Urine Culture - Final, Complete Proteus mirabilis Mixed Bacterial Sue Radiology Chest x-ray (01/08/2023): IMPRESSION: No acute abnormality or significant change. Assessment/Plan Assessment/Plan Admission Dx Catheter associated UTI Admission Status: Inpatient Order (span 2 midnights) (1) Hypotension Status: Chronic Assessment & Plan: Blood pressures continue to remain stable today without requiring Levophed. Plan: -Continue Florinef 0.2 mg daily and midodrine to 10 mg 3 times daily Dissipate discharge to facility today or tomorrow if bed is available (2) Catheter-associated urinary tract infection Status: Resolved Assessment & Plan: Urinary tract infection secondary to chronic indwelling suprapubic catheter. Patient appears quite comfortable. Initially was treated with vancomycin and cefepime, later expanded to meropenem to cover all organisms growing on cultures. Discontinued antibiotics on 01/16/2023 as patient completed a 9-day course. Plan: Urine culture grew Proteus Sputum culture grew Pseudomonas and Achromobacter Blood cultures grew staph hominis and epidermidis, this is likely a contaminant given that only 1 bottle of 3 was growing staph Port in place, okay to use Repeat blood cultures no growth Qualifiers: Qualified Codes: T83.510A - Infection and inflammatory reaction due to cystostomy catheter, initial encounter; N39.0 - Urinary tract infection, site not specified (3) Tracheostomy care Status: Chronic Assessment & Plan: Continue routine tracheostomy care (4) Uses feeding tube Status: Chronic Assessment & Plan: PEG tube exchanged 01/15 does not seem to show any backup with tube feeds. Continue tube feeds as tolerated (5) Colostomy care Status: Chronic Assessment & Plan: Continue routine colostomy care. ADDISON DORAN MD 01/20/23 1235: Supervisory-Addendum Brief Supervisory Addendum I personally performed the aguilar portions of the visit, discussed case with resident and concur with resident documentation of history, physical exam, assessment and treatment plan unless otherwise noted. KATALINA PEREZ MD, RESIDENT Jan 20, 2023 08:55 ADDISON DORAN MD Jan 20, 2023 12:35
--- NOTE | 2023-01-20 11:42 | Discharge Inst-Skilled Nursing ---
KATALINA TRUJILLO MD, RESIDENT 01/20/23 1142: Discharge [facility]-Skilled NF Reconcile Patient Problems Problems Reviewed?: Yes Chief Complaint CC: Shortness of breath Patient is a 47-year-old female who initially presented by EMS from [facility]. Of note she is aphasic at baseline and thus much of the history was obtained from the [place] [facility] report and ED note. 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 She also has a trach in place, feeding tube, colostomy and suprapubic indwelling catheter. Per the ED note it appeared that the [place] [facility] noted that patient was having more trouble breathing and had concerns that she could be septic and thus had sent her for further evaluation. In the ED she was noted to be tachycardic with soft blood pressures, had leukocytosis. Urine sample obtained from the suprapubic catheter was notable for a UTI and thus she was admitted for further management. She received a dose of cefepime and vancomycin in the ED due to history of prior MRSA infection. We continued treatment with IV cefepime and vancomycin with eventual improvement in her vital signs and labs. Urine culture grew Proteus, sputum culture grew Pseudomonas and Achromobacter and blood cultures grew staph hominis and epidermidis, this is likely a contaminant given that only 1 bottle of 3 was growing staph. We switched treatment to meropenem to cover all organisms that were growing before discontinuing after completing a 9 day course. Patient was also noted to be hypotensive requiring levophed however she is hypotensive at baseline. We started midodrine and florinef with eventual improvement in her blood pressures remaining stable off of levophed. On 01/15, patient had a port placed and exchange of her PEG tube, both of which continued to function well. She was otherwise stable prior to discharge to [facility]. Patient will have [facility] to palliative care services after SNF. Patient Instructions Patient Problems: Tracheostomy, colostomy, Peg tube, CAUTI Goal: return to baseline Consult/Follow Up/Orders Skilled NF Admit to: [facility] Certification (SNF) I certify that SNF services are required to be given on an inpatient basis bradly use of the above named patient's need for fpc care on a continuing basis for the conditions(s) for which he/she was receiving inpatient hospital services prior to his/her transfer to the SNF. Care Home Facility Order: Nursing Services, Cord Cutter-Evaluate & Treat, Physical Therapy-Evaluate & Treat Oxygen Delivery Method: Vapotherm Discharge Diet: Tube Feeding Daily Activity as Tolerated: Yes Resuscitation Status: Full Code New & Resume Previous Orders New Medications: Fludrocortisone Acetate (Fludrocortisone Acetate) 0.1 Mg Tab 0.2 MG PO DAILY for 30 Days, #60 TAB Midodrine HCl (Midodrine HCl) 10 Mg Tablet 10 MG PO TID for 30 Days, #90 TAB Continued Medications: Acetaminophen (Acetaminophen) 650 Mg/20.3 Ml Oral.susp 20.3 ML PEG Q6H PRN for PAIN-MILD (1-4) OR TEMPATURE for 30 Days, #2500 ML (This prescription has been renewed) Azelastine HCl (Azelastine HCl) 137 Mcg (0.1 %) [place].pump 2 SPRAYS NSEACH HS for 30 Days, #2 EA (This prescription has been renewed) Baclofen (Baclofen) 10 Mg Tablet 10 MG PEG BID for 30 Days, #60 TAB (This prescription has been renewed) Bisacodyl (Bisacodyl) 10 Mg Supp.rect 10 MG RC DAILY PRN for CONSTIPATION-4TH LINE for 30 Days, #30 SUPP.RECT (This prescription has been renewed) Cranberry Fruit (Cranberry) 450 Mg Tablet 450 MG PEG BID for 30 Days, #60 TAB (This prescription has been renewed) Docusate Sodium (Stool Softener) 50 Mg/5 Ml Liquid 10 ML PEG BID for 30 Days, #600 ML (This prescription has been renewed) Hydrocodone/Acetaminophen (Hydrocodone-Acetamin 5-325 mg) 5 Mg-325 Mg Tablet 1 TAB PEG Q6H PRN for PAIN-MODERATE (5-7) for 30 Days, #120 TAB (This prescription has been renewed) Ipratropium/Albuterol Sulfate (Iprat-Albut 0.5-3(2.5) mg/3 ml) 0.5 Mg-3 Mg (2.5 Mg Base)/3 Ml Ampul.neb 3 ML PO Q6H PRN for SHORTNESS OF BREATH for 30 Days, #30 EACH (This prescription has been renewed) Ketoconazole (Ketoconazole) 2 % Shampoo 1 APPLIC TP ,,, for 30 Days, #1 EA (This prescription has been renewed) APPLY TO HAIR/SCALP Lactulose (Lactulose) 10 Gram/15 Ml Solution 30 ML PEG DAILY for 30 Days, #900 ML (This prescription has been renewed) Levetiracetam (Keppra) 100 Mg/Ml Solution 7.5 ML PEG BID for 30 Days, #450 ML (This prescription has been renewed) Metoclopramide HCl (Metoclopramide HCl) 5 Mg Tablet 5 MG PEG Q6H, TAB Nystatin (Nystatin) 100,000 Unit/Gram Cream..g. 1 APPLIC TP BID for 30 Days, #1 EA (This prescription has been renewed) Polyethylene Glycol 3350 (Miralax) 17 Gram Powd.pack 17 GM PEG DAILY PRN for CONSTIPATION-2ND LINE for 30 Days, #30 EACH (This prescription has been renewed) Potassium Chloride (Potassium Chloride) 20 Meq Tablet.er 20 MEQ PEG DAILY for 30 Days, #30 TAB (This prescription has been renewed) Discontinued Medications: Hydrocodone/Acetaminophen (Hydrocodone-Acetamn 7.5-325/15) 7.5 Mg-325 Mg/15 Ml Solution 10 ML PEG Q6H PRN for PAIN-MODERATE (5-7), NEELAM Trujillo Jan 20, 2023 11:36 ADDISON DORAN MD 01/20/23 1249: Supervisory-Addendum Brief Supervisory Addendum I personally performed the aguilar portions of the visit, discussed case with resident and concur with resident documentation of history, physical exam, assessment and treatment plan unless otherwise noted. KATALINA TRUJILLO MD, RESIDENT Jan 20, 2023 11:42 ADDISON DORAN MD Jan 20, 2023 12:49
--- NOTE | 2023-01-20 11:45 | Discharge Summary ---
KATALINA PEREZ MD, RESIDENT 01/20/23 1145: Discharge Summary Hospital Course Problems/Diagnosis: (1) Hypotension Status: Chronic Assessment & Plan: Blood pressures continue to remain stable today without requiring Levophed. Plan: -Continue Florinef 0.2 mg daily and midodrine to 10 mg 3 times daily - Anticipate discharge to facility today or tomorrow if bed is available (2) Catheter-associated urinary tract infection Status: Resolved Resolution Date/Time: 01/18/23 @ 09:24 Assessment & Plan: Urinary tract infection secondary to chronic indwelling suprapubic catheter. Patient appears quite comfortable. Initially was treated with vancomycin and cefepime, later expanded to meropenem to cover all organisms growing on cultures. Discontinued antibiotics on 01/16/2023 as patient completed a 9-day course. Plan: Urine culture grew Proteus Sputum culture grew Pseudomonas and Achromobacter Blood cultures grew staph hominis and epidermidis, this is likely a contaminant given that only 1 bottle of 3 was growing staph Port in place, okay to use Repeat blood cultures no growth Qualifiers: Qualified Codes: T83.510A - Infection and inflammatory reaction due to cystostomy catheter, initial encounter; N39.0 - Urinary tract infection, site not specified (3) Tracheostomy care Status: Chronic Assessment & Plan: Continue routine tracheostomy care (4) Uses feeding tube Status: Chronic Assessment & Plan: PEG tube exchanged 01/15 does not seem to show any backup with tube feeds. Continue tube feeds as tolerated (5) Colostomy care Status: Chronic Assessment & Plan: Continue routine colostomy care. Hospital Course Date of Admission: Jan 08, 2023 at 23:23 Admission Diagnosis : Family Physician/Provider: Bentley Khan MD Date of Discharge: 01/20/23 Discharge Diagnosis: CAUTI Hospital Course: Patient is a 47-year-old female who initially presented by EMS from [facility]. Of note she is aphasic at baseline and thus much of the [facility]. 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 She also has a trach in place, feeding tube, colostomy and suprapubic indwelling catheter. Per the ED note it appeared that the jail noted that patient was having more trouble breathing and had concerns that she could be septic and thus had sent her for further evaluation. In the ED she was noted to be tachycardic with soft blood pressures, had leukocytosis. Urine sample obtained from the suprapubic catheter was notable for a UTI and thus she was admitted for further management. She received a dose of cefepime and vancomycin in the ED due to history of prior MRSA infection. We continued treatment with IV cefepime and vancomycin with eventual improvement in her vital signs and labs. Urine culture grew Proteus, sputum culture grew Pseudomonas and Achromobacter and blood cultures grew staph hominis and epidermidis, this is likely a contaminant given that only 1 bottle of 3 was growing staph. We switched treatment to meropenem to cover all organisms that were growing before discontinuing after completing a 9 day course. Patient was also noted to be hypotensive requiring levophed however she is hypotensive at baseline. We started midodrine and florinef with eventual improvement in her blood pressures remaining stable off of levophed. On 01/15, patient had a port placed and exchange of her PEG tube, both of which continued to function well. She was otherwise stable prior to discharge to [facility]. Will have [facility] to palliative services after. Labs and Pending Lab Test: Laboratory Tests 01/19/23 12:41: Glucometer 89 01/19/23 18:06: Glucometer 113H 01/20/23 00:22: Glucometer 71 01/20/23 04:44: White Blood Count 7.2, Red Blood Count 3.15L, Hemoglobin 9.8L, Hematocrit 30L, Mean Corpuscular Volume 95, Mean Corpuscular Hemoglobin 31, Mean Corpuscular Hemoglobin Concent 33, Red Cell Distribution Width 13.3, Platelet Count 302, Mean Platelet Volume 9.7, Immature Granulocyte % (Auto) 0, Neutrophils (%) (Auto) 54, Lymphocytes (%) (Auto) 34, Monocytes (%) (Auto) 7, Eosinophils (%) (Auto) 4, Basophils (%) (Auto) 1, Neutrophils # (Auto) 3.9, Lymphocytes # (Auto) 2.5, Monocytes # (Auto) 0.5, Eosinophils # (Auto) 0.3, Basophils # (Auto) 0.0, Immature Granulocyte # (Auto) 0.0, Sodium Level 139, Potassium Level 3.9, Chloride Level 105, Carbon Dioxide Level 24, Anion Gap 10, Blood Urea Nitrogen 7, Creatinine 0.44L, Estimat Glomerular Filtration Rate 118, BUN/Creatinine Ratio 16, Glucose Level 78, Calcium Level 8.4L, Corrected Calcium 9.2, Phosphorus Level 3.5, Magnesium Level 1.8, Total Bilirubin 0.2, Aspartate Amino Transf (AST/SGOT) 14, Alanine Aminotransferase (ALT/SGPT) 10, Alkaline Phosphatase 71, Total Protein 6.1L, Albumin 3.0L 01/20/23 11:12: Glucometer 148H Microbiology 01/15/23 MRSA Screen - Final, Complete MRSA not isolated 01/15/23 Blood Culture - Preliminary, Resulted 01/13/23 C. difficile GDH Antigen & Toxins - Final, Complete 01/08/23 Urine Culture - Final, Complete Proteus mirabilis Mixed Bacterial Sue Home Meds Active Reported Hydrocodone-Acetamin 5-325 mg (Hydrocodone/Acetaminophen) 5 Mg-325 Mg Tablet 1 Tab PEG Q6H PRN Potassium Chloride 20 Meq Tablet.er 20 Meq PEG DAILY Hydrocodone-Acetamn 7.5-325/15 (Hydrocodone/Acetaminophen) 7.5 Mg-325 Mg/15 Ml Solution 10 Ml PEG Q6H PRN Stool Softener (Docusate Sodium) 50 Mg/5 Ml Liquid 10 Ml PEG BID Nystatin 100,000 Unit/Gram Cream..g. 1 Applic TP BID Miralax (Polyethylene Glycol 3350) 17 Gram Powd.pack 17 Gm PEG DAILY PRN Metoclopramide HCl 5 Mg Tablet 5 Mg PEG Q6H Keppra (Levetiracetam) 100 Mg/Ml Solution 7.5 Ml PEG BID Lactulose 10 Gram/15 Ml Solution 30 Ml PEG DAILY Ketoconazole 2 % Shampoo 1 Applic TP ,,, APPLY TO HAIR/SCALP Iprat-Albut 0.5-3(2.5) mg/3 ml (Ipratropium/Albuterol Sulfate) 0.5 Mg-3 Mg (2.5 Mg Base)/3 Ml Ampul.neb 3 Ml PO Q6H PRN Cranberry (Cranberry Fruit) 450 Mg Tablet 450 Mg PEG BID Bisacodyl 10 Mg Supp.rect 10 Mg RC DAILY PRN Baclofen 10 Mg Tablet 10 Mg PEG BID Azelastine HCl 137 Mcg (0.1 %) [place].pump 2 Sprays NSEACH HS Acetaminophen 650 Mg/20.3 Ml Oral.susp 20.3 Ml PEG Q6H PRN Assessment/Pt DC Instructions Please see electronic discharge instructions given to patient. Discharge Diet: Tube Feeding Activity as Tolerated: Yes Discharge Physical Examination Allergies: Coded Allergies: No Known Drug Allergies (Unverified , 06/12/21) General Appearance: WD/WN HEENT: PERRL/EOMI, Normal ENT Inspection Respiratory: Chest Non Tender, Lungs Clear, Normal Breath Sounds, No Accessory Muscle Use, No Respiratory Distress, Other (port in left side of chest, tracheostomy in place) Cardiovascular: Regular Rate, Rhythm, No Edema, No Murmur Gastrointestinal: Normal Bowel Sounds, Non Tender, Soft, Other (colostomy draining stool, PEG tube in place) Extremity: No Pedal Edema Skin: Normal Color, Warm/Dry Neurologic/Psychiatric: Alert Copy Copies To 1: BENTLEY KHAN MD, BETHANY N MD 01/20/23 1248: Discharge Summary Discharge Physical Examination Allergies: Coded Allergies: No Known Drug Allergies (Unverified , 06/12/21) Copy Copies To 1: BENTLEY KHAN MD Supervisory-Addendum Brief Supervisory Addendum I personally performed the aguilar portions of the visit, discussed case with resident and concur with resident documentation of history, physical exam, assessment and treatment plan unless otherwise noted. KATALINA PEREZ MD, RESIDENT Jan 20, 2023 11:45 ADDISON DORAN MD Jan 20, 2023 12:48
[2023-01-20 11:51] VITALS: BP 90/50
[2023-01-20] MEDS ORDERED: BISA10SU8 RC (12:01)
[2023-01-20] MEDS ORDERED: POTA-330 PEG (12:01)
[2023-01-20] MEDS ORDERED: ACHD5005 PEG ×2 (12:01→12:05)
[2023-01-20] MEDS ORDERED: KETO120S13 TP (12:01)
[2023-01-20] MEDS ORDERED: DOCU50LI11 PEG (12:01)
[2023-01-20] MEDS ORDERED: AZEL137S11 NSEACH (12:01)
[2023-01-20] MEDS ORDERED: LEVE100S16 PEG (12:01)
[2023-01-20] MEDS ORDERED: FLDR.1T PO (12:01)
[2023-01-20] MEDS ORDERED: NYST15CR35 TP (12:01)
[2023-01-20] MEDS ORDERED: CRAN450T9 PEG (12:01)
[2023-01-20] MEDS ORDERED: POLY17PO6 PEG (12:01)
[2023-01-20] MEDS ORDERED: BACL10TA PEG (12:01)
[2023-01-20] MEDS ORDERED: ACET650O4 PEG (12:01)
[2023-01-20] MEDS ORDERED: IPRA3AMP31 PO (12:01)
[2023-01-20] MEDS ORDERED: MIDO10TA PO (12:01)
[2023-01-20] MEDS ORDERED: LACT10SO3 PEG (12:01)
[2023-01-20] MEDS: ENOXAPARIN 40 MG/0.4 ML SYRINGE SC SCH (12:19)
--- NOTE | 2023-01-20 14:43 | Progress Note-Post Operative ---
Post-Operative Progess Note Surgeon (s)/Information Technology Technician (s) Surgeon MARCIA MCCANN DO Information Technology Technician: Catherine Celeste Pre-Operative Diagnosis Venous Insufficiency, G-Tube malfunction Post-Operative Diagnosis same Procedure & Operative Findings Date of Procedure 01/20/23 Procedure Performed/Findings PROCEDURE: Juanita-Cath placement The patient was taken to the operating suite, was prepped and draped in the sterile fashion. A surgical pause was performed. Local anesthetic was infiltrated at the clavicle and along the tract to the right anterior chest, where more local was placed so the pocket could be created. Using an 18 gauge finder needle with negative inspiration the right subclavian vein was accessed on the first attempt and dark nonpulsatile blood was withdrawn. The wire was inserted and fluoroscopy assured proper placement. The needle was removed. The regular wire was inserted and fluoroscopy assured proper placement. The wire was then secured. A #11 blade scalpel was used to make an incision over the right chest and along guidewire. Cautery was used to dissect down to the pectoral fascia. A pocket was created with blunt dissection. The dilator sheath was then advanced over the wire under fluoroscopy and the dilator and wire were removed. The [place] catheter was inserted through the sheath and the sheath was then removed. The [place] wire was removed. The catheter was then tunneled to the right chest pocket. Fluoroscopy was used to cut to length and this was then attached to the port which was then placed within the pocket. The port was then accessed without difficulty. It was then flushed with saline and then heparin. The subcutaneous tissues were then reapproximated using 3-0 Vicryl. Finally the skin was closed with 4-0 undyed monocryl, 3 interrupted sutures. The areas were then washed and dried. Skin Affix was placed over incision. The insertion point of the neck Skin Affix was placed over the incision. The patient tolerated the procedure well without complication and was taken to recovery room in stable condition. PROCEDURE #2 G-Tube replacement Pt was already asleep from Port placement, I carefully and gently pulled the old PEG tube out. It came out intact and then I placed a 20french G-Tube back in and inflat ed the balloon. I went in easily and I flushed with saline, without difficulty. Anesthesia Type IV sedation by Anesthesia Estimated Blood Loss Estimated blood loss (mL): scant Specimens/Packing Specimens Removed PEG tube, not sent to pathology MARCIA MCCANN DO Jan 20, 2023 14:43
[2023-01-20 15:31] VITALS: BP 125/81
== END 2023-01-20 15:31 | DRG 673 ==
LOC: EDUNIT# 18:51 → ER FS 18:52 → CSD 23:23 → ICU 01-10 10:28 → 4TH 01-18 13:49
PROVIDERS: ADMIT Family Medicine; ATTEND Family Medicine
PROC: 5A1935Z Respiratory Ventilation, Less than 24 Consecutive Hours (ICD-10-PCS; 2023-01-15)
PROC: 0JH60WZ Insertion of Totally Implantable Vascular Access Device into Chest Subcutaneous Tissue and Fascia, Open Approach (ICD-10-PCS; principal; 2023-01-20)
PROC: 02HV33Z Insertion of Infusion Device into Superior Vena Cava, Percutaneous Approach (ICD-10-PCS; 2023-01-20)
PROC: 0DP6XUZ Removal of Feeding Device from Stomach, External Approach (ICD-10-PCS; 2023-01-20)
PROC: 0DH63UZ Insertion of Feeding Device into Stomach, Percutaneous Approach (ICD-10-PCS; 2023-01-20)
DX: T83.510A Infection and inflammatory reaction due to cystostomy catheter, initial encounter (principal); A41.9 Sepsis, unspecified organism; L89.153 Pressure ulcer of sacral region, stage 3; L89.313 Pressure ulcer of right buttock, stage 3; R65.21 Severe sepsis with septic shock; N39.0 Urinary tract infection, site not specified; J96.11 Chronic respiratory failure with hypoxia; E44.0 Moderate protein-calorie malnutrition; K94.23 Gastrostomy malfunction; I69.320 Aphasia following cerebral infarction; Z11.52 Encounter for screening for COVID-19; I69.398 Other sequelae of cerebral infarction; M24.50 Contracture, unspecified joint; Z93.0 Tracheostomy status; Z93.3 Colostomy status; E87.6 Hypokalemia; Z87.820 Personal history of traumatic brain injury; Z74.01 Bed confinement status; E83.42 Hypomagnesemia; R19.7 Diarrhea, unspecified; L30.8 Other specified dermatitis; I87.2 Venous insufficiency (chronic) (peripheral)
CPT/HCPCS: 36410; 36415; 49465; 71045; 76000; 76937; 80048; 80053; 80202; 81000; 82947; 83605; 83735; 84100; 85025; 86141; 87040; 87070; 87077; 87081; 87088; 87186; 87205; 87324; 87449; 87636; 94640; 94668; 94760; 94799; 96361; 96365; 96367